=== PATIENT | female | born 1940 | race Caucasian/White ===

== ENCOUNTER → 2017-10-29 08:22 | Outpatient (POV) | payer MEDICARE, OTHER, SELFPAY | PROVIDERS: Visit Provider Dermatology | DX: Z00.00 Encounter for general adult medical examination without abnormal findings (principal) ==

== ENCOUNTER → 2021-10-21 08:04 | Outpatient (CLI) | payer MEDICARE, OTHER, SELFPAY | PROVIDERS: Visit Provider Nurse Practitioner | DX: Z20.822 Contact with and (suspected) exposure to COVID-19 (principal) | CPT/HCPCS: C9803; U0003; U0005 ==

== ENCOUNTER → 2022-08-19 12:17 | Outpatient (CLI) | payer MEDICARE, OTHER, SELFPAY | PROVIDERS: PCP Family Medicine; Visit Provider Nurse Practitioner Family | DX: R10.84 Generalized abdominal pain (principal) | CPT/HCPCS: 87045; 87177 ==

== ENCOUNTER 2022-08-23 23:34 | Emergency (ER) | payer MEDICARE, OTHER, SELFPAY ==
[2022-08-23 23:35] VITALS: BP 141/89; PULSE 83; RESP 16; TEMP 36.9; O2SAT 94; BMI 20.1
--- NOTE | 2022-08-23 23:51 | CT_ITS ---
PROCEDURE INFORMATION: Exam: CT Abdomen And Pelvis With Contrast Exam date and time: 08/24/2022 12:40 AM Age: 82 years old Clinical indication: Other: Diarrhea TECHNIQUE: Imaging protocol: Computed tomography of the abdomen and pelvis with contrast. Radiation optimization: All CT scans at this facility use at least one of these dose optimization techniques: automated exposure control; mA and/or kV adjustment per patient size (includes targeted exams where dose is matched to clinical indication); or iterative reconstruction. Contrast material: ISOVUE; Contrast volume: 75 ml; Contrast route: IV; COMPARISON: No relevant prior studies available. FINDINGS: Lungs: Linear densities are present at both lung bases either representing subsegmental atelectasis or scarring. Liver: Normal. No mass. Gallbladder and bile ducts: Normal. No calcified stones. No ductal dilation. Pancreas: Normal. No ductal dilation. Spleen: A very small spleen is noted. Adrenal glands: There is mild left adrenal hyperplasia. Kidneys and ureters: There is a 13 mm cortical cyst of the right kidney with several bilateral renal parapelvic cyst present as well. Stomach and bowel: There is fluid-filled right and transverse colon. Appendix: No evidence of appendicitis. The appendix is not identified as a discrete structure however, there is no inflammatory process in the region of the cecum. Intraperitoneal space: Unremarkable. No free air. No significant fluid collection. Vasculature: There is mild calcific atherosclerotic disease. There is no abdominal aortic aneurysm. 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 Lymph nodes: Unremarkable. No enlarged lymph nodes. Urinary bladder: Unremarkable as visualized. Reproductive: The uterus is absent. Bones/joints: Unremarkable. No acute fracture. Soft tissues: Unremarkable. IMPRESSION: 1. Fluid-filled ascending and transverse colon without wall thickening or acute inflammation. Findings are consistent with diarrheal illness. There is no bowel obstruction. 2. 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 3. 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 COMMENTS: Consistent with the [employer]'s Incidental Findings Committee white paper (J Am Gil Radiol 2018): Any incidental renal lesion less than 1 cm or classified as too small to characterize, or any incidental cystic renal lesion characterized as simple-appearing, is likely benign. No follow-up imaging is recommended for these lesions per consensus recommendations based on imaging criteria.
--- NOTE | 2022-08-24 00:03 | HMH.EDNVD ---
Discharge Plan Disposition Patient Disposition: Home, Self-Care Chief Complaint: Nausea/Vomiting/Diarrhea Prescriptions Prescriptions: No Action simvastatin 40 mg tablet 40 mg PO QHS Referrals Follow up/Referrals: Ameya Moreno MD [Primary Care Provider] - See instructions Clinical Impressions Clinical Impression: Gastroenteritis Instructions Patient Instructions: DI for Diarrhea and Traveler's Diarrhea -- Adult Discharge ED Provider: Ramu Min Nausea/Vomiting/Diarrhea HPI General Chief complaint: Nausea/Vomiting/Diarrhea Stated complaint: Diarrhea,weakness Time Seen by Provider: 08/24/22 00:03 Mode of Arrival: Ambulatory Source of Information: Patient, Spouse and Medical Record Limitations: No Limitations Description of Symptoms (Recalled from ER Triage Doc. by RN): pt c/o diarrhea x 1 week with abd cramping. pt denies any nausea vomitting History of Present Illness HPI Narrative: diarrhea w/o fever or blood with crampy abd pain - no vomiting or known exposure complaint: diarrhea Onset (ago): day(s) Description of Diarrhea: water Associated Abdominal Pain: Yes Location of pain: diffuse Severity: moderate Associated symptoms: denies other symptoms Related Data Home Medications Medication Instructions Recorded Confirmed simvastatin 40 mg tablet 40 mg PO QHS 06/29/19 06/29/19 Allergies Allergy/AdvReac Type Severity Reaction Status Date / Time No Known Allergies Allergy Verified 06/29/19 11:09 PFSH PFS Social History Smoking Status: Former smoker alcohol intake: former substance use type: denies use current occupational status: employed Travel in the last 8 weeks: Inside the [facility] ROS Obtained: Yes All systems reviewed & no additional complaints except as documented Physical Exam General General appearance: alert Head Head exam: normocephalic Eye Eye exam: Present PERRL and EOMI; Absent scleral icterus ENT ENT exam: Present mucous membranes moist Neck Neck exam: Present trachea midline Respiratory Respiratory exam: Absent respiratory distress Cardiovascular Cardiovascular exam: Present regular rate Abdominal Exam Abdominal exam: Present soft Extremities Exam Extremities exam: Present full ROM Neurological Exam Neurological exam: Present alert, oriented X3 and CN II-XII intact; Absent motor sensory deficit Psychiatric Psychiatric exam: Present normal affect Skin Skin exam: Present intact Medical Decision Making Medical Records Medical records reviewed: Yes I reviewed the patient's medical records. Jan Inquiry Pt receiving controlled substance: No Vital Signs: 08/23/22 23:35 Temperature 98.4 F Temperature Source Oral Pulse Rate [Right] 83 Respiratory Rate 16 Blood Pressure [Right Arm] 141/89 H Blood Pressure Mean [Right Arm] 106 02 Sat by Pulse Oximetry 94 L Lab Data Lab results reviewed: Yes I reviewed the patient's lab results. Lab Results 08/23/22 00:00: WBC 8.3, RBC 4.40, Hgb 12.9, Hct 41.1, MCV 93.6, MCH 29.5, MCHC 31.5 L, RDW 13.7, Plt Count 609 H, MPV 7.6, Neut % (Auto) 59.2, Lymph % (Auto) 30.9, Ness % (Auto) 7.8, Eos % (Auto) 1.3, Baso % (Auto) 0.8, Neut # (Auto) 4.9, Lymph # (Auto) 2.6, Ness # (Auto) 0.6, Eos # (Auto) 0.1, Baso # (Auto) 0.1, ESR 57 H 08/24/22 00:00: Sodium 137, Potassium 3.1 L, Chloride 96 L, Carbon Dioxide 26, Anion Gap 18.1 H, BUN 13, Creatinine 0.60, Estimated Creat Clear 34, Estimated GFR 96, Est GFR ( Amer) 116, Glucose 96, Calcium 9.8, Total Bilirubin 0.4, AST 28, ALT 13, Alkaline Phosphatase 130 H, C-Reactive Protein 41.8 H, Total Protein 7.8, Albumin 4.2, Globulin 3.6 H, Albumin/Globulin Ratio 1.2, Procalcitonin 0.057 08/24/22 00:00: Lipase 25 08/24/22 01:27: Urine Color Yellow, Urine Appearance Clear, Urine pH 6.0, Ur Specific Ace 1.010, Urine Protein Negative, Urine Glucose (UA) Negative, Urine Ketones Negative, Urine Blood 2+, Urine Nitrate Positive, Urine Bilirubin Neg
[2022-08-24 00:10] LABS: Basophils # 0.1 K/mm3 (0-0.2); Basophils % 0.8 % (0.1-2.0); Eosinophils # 0.1 K/mm3 (0.0-0.4); Eosinophils % 1.3 % (0.1-12.0); Hematocrit 41.1 % (37.0-47.0); Hemoglobin 12.9 g/dL (12.2-16.2); Lymphocytes # 2.6 K/mm3 (0.7-4.5); Lymphocytes % 30.9 % (10-50); Mean Corpuscular HGB Conc 31.5 g/dL (31.8-35.4); Mean Corpuscular Hemoglobin 29.5 pg (27.0-31.2); Mean Corpuscular Volume 93.6 fl (81-99); Mean Platelet Volume 7.6 fl (7.4-10.4); Monocytes # 0.6 K/mm3 (0.1-1.0); Monocytes % 7.8 % (1.7-9.3); Neutrophils # 4.9 K/mm3 (1.8-7.8); Neutrophils % 59.2 % (37.0-80.0); Red Cell Distribution Width 13.7 % (11.5-17.5); White Blood Count 8.3 K/mm3 (4.8-10.8)
[2022-08-24 00:12] LABS: Platelet Count 609 K/mm3 (142-424)
[2022-08-24 00:21] LABS: Alanine Aminotransferase 13 U/L (12-78); Albumin Level 4.2 g/dl (3.5-5.0); Albumin/Globulin Ratio 1.2 (1.1-1.8); Alkaline Phosphatase 130 U/L (38-126); Anion Gap 18.1 mEq/L (5-15); Aspartate Amino Transferase 28 U/L (14-36); Bilirubin,Total 0.4 mg/dl (0.2-1.3); Blood Urea Nitrogen 13 mg/dl (7-17); Calcium 9.8 mg/dl (8.4-10.2); Carbon Dioxide 26 mmol/L (22.0-30.0); Chloride 96 mmol/L (98-107); Creatinine Clearance Estimated 34 mL/min (50-200); Estimated Glomerular Filt Rate 96 ml/min (>60); GFR (African American) 116 ML/MIN (>60); Globulin 3.6 g/dL (1.3-3.2); Glucose 96 mg/dl (74-100); Lipase 25 U/L (23-300); Potassium 3.1 mmoL/L (3.5-5.1); Sodium 137 mmol/L (136-145); Total Protein,Serum 7.8 g/dl (6.3-8.2)
[2022-08-24 00:26] LABS: C-Reactive Protein 41.8 mg/L (0-4)
[2022-08-24 00:35] LABS: Erythrocyte Sedimentation Rate 57 mm/hr (0-30)
[2022-08-24 00:39] LABS: Procalcitonin 0.057 ng/mL (0.0-2.0)
[2022-08-24 01:29] LABS: Microscopic, Urine URINE MICROSCOPIC (MICROSCOPIC)
[2022-08-24 01:30] LABS: Appearance,Urine CLEAR (Clear); Bilirubin,Urine Negative (Negative); Blood, Urine 2+ (Negative); Color,Urine YELLOW (Yellow); Glucose,Urine (UA) Negative (Negative); Ketones,Urine Negative (Negative); Leukocyte Esterase,Urine Negative (Negative); Nitrate,Urine POSITIVE (Negative); Protein,Urine Negative (Negative); Urobilinogen,Urine 0.2 EU/dl (0.2)
[2022-08-24 01:33] LABS: Bacteria,Urine 2+ /lpf
[2022-08-24 02:42] VITALS: BP 142/79; PULSE 81; RESP 16; TEMP 36.9; O2SAT 94
== END 2022-08-24 03:00 | disposition home or self-care (01) ==
PROVIDERS: Emergency Provider Emergency Medicine; PCP Family Medicine
DX: N39.0 Urinary tract infection, site not specified (principal); K52.9 Noninfective gastroenteritis and colitis, unspecified
CPT/HCPCS: 74177; 80053; 81001; 83690; 84145; 85025; 85651; 86140; 87086; 87088; 87186; 96365; 96367; 99284; J0696; Q9967

== ENCOUNTER → 2022-08-24 08:52 | Outpatient (CLI) | payer MEDICARE, OTHER, SELFPAY | PROVIDERS: PCP Family Medicine; Visit Provider Emergency Medicine | DX: R11.2 Nausea with vomiting, unspecified (principal); R19.7 Diarrhea, unspecified ==

== ENCOUNTER 2025-03-06 09:18 | Outpatient (CLI) | payer MEDICARE, OTHER, SELFPAY ==
[2025-03-06 10:01] LABS: Basophils # 0.1 K/mm3 (0-0.2); Eosinophils # 0.2 Kmm3 (0.0-0.4); Eosinophils % 1.6 % (0.1-12.0); Hematocrit 39.8 % (37.0-47.0); Hemoglobin 12.5 g/dL (12.2-16.2); Immature Granulocytes # 0.02 10^3uL; Immature Granulocytes % 0.2 %; Lymphocytes # 3.3 K/mm3 (0.7-4.5); Lymphocytes % 35.7 % (10-50); Mean Corpuscular HGB Conc 31.4 g/dL (31.8-35.4); Mean Corpuscular Hemoglobin 28.3 pg (27.0-31.2); Mean Platelet Volume 10.4 fl (7.4-10.4); Monocytes % 10.6 % (1.7-9.3); Neutrophils # 4.7 K/mm3 (1.8-7.8); Neutrophils % 50.9 % (37.0-80.0); Nucleated Red Blood Cells # 0 10^3/uL; Nucleated Red Blood Cells % 0 %; Platelet Count 548 K/mm3 (142-424); Red Blood Count 4.42 M/mm3 (4.20-5.40); Red Cell Distribution Width 16.6 % (11.5-17.5); Red Cell Distribution Width-SD 55.1 fL; White Blood Count 9.2 K/mm3 (4.8-10.8)
[2025-03-06 10:32] LABS: Erythrocyte Sedimentation Rate 28 mm/hr (0-30)
[2025-03-06 10:57] LABS: Thyroid Stimulating Hormone 0.43 uIU/mL (0.465-4.68)
[2025-03-06 11:16] LABS: Vitamin B12 612 pg/mL (239-931)
== END 2025-03-06 23:59 | disposition home or self-care (01) ==
LOC: LAB 09:22
PROVIDERS: PCP Family Medicine; Visit Provider Family Medicine
DX: R41.89 Other symptoms and signs involving cognitive functions and awareness (principal); R41.3 Other amnesia
CPT/HCPCS: 36415; 82607; 82746; 84443; 85025; 85651

== ENCOUNTER 2025-04-19 11:50 | Outpatient (CLI) | payer MEDICARE, OTHER, SELFPAY ==
--- OUTSIDE RECORDS SUMMARY | 2025-03-03 16:30 | XMS_ITS | Encounter Summary ---
Author Organization [facility] Address [address] [place] [address] Care Team Providers Care Student Career Development Specialist Name Role Phone Ameya Moreno MD Primary Care Provider + Reason for Visit * Reason Comments memory issues Encounter Details Date Type Department Care Team (Late st Contact Info) Description 03/03/2025 4:30 PM EDT Office Visit [facility] [address] [place] [address] Ameya Moreno MD [address] [place] [address] Cognitive impairment (Primary Dx); Memory [...] as of this encounter Progress Notes * Ameya Moreno MD - 03/03/2025 4:30 [...] documented in this encounter Plan of Treatment Scheduled Orders Name Type Priority Associated Diagnoses Orde r Schedule Vitamin B12 Lab Routine Cognitive impairment Memory impairment of gradual onset Expected: 03/08/2025 (Approximate), Expires: 06/03/2026 CBC (No Diff) Lab Routine Cognitive impairment Memory impairment of gradual onset Expected: 03/08/2025 (Approximate), Expires: 06/03/2026 Sedimentation Rate Lab Routine Cognitive impairment Memory impairment of gradual onset Expected: 03/08/2025 (Approximate), Expires: 06/03/2026 TSH Rfx On Abnormal To Free T4 Lab Routine Cognitive impairment Memory impairment of gradual onset Expected: 03/08/2025 (Approximate), Expires: 06/03/2026 Folate Lab Routine Cognitive impairment Memory impairment of gradual onset Expected: 03/08/2025 (Approximate), Expires: 06/03/2026 documented as of this encounter Procedures Procedure Name Priority Date/Time Associated Diagnosis Comments SCANNED COGNITIVE ASSESSMENT 03/03/2025 documented in this encounter Results * COGNITIVE ASSESSMENT SCAN (03/03/2025) Ameya Moreno MD NEUROLOGY ORDERABLES Fin al Result documented in this encounter Visit Diagnoses Diagnosis Cognitive impairment- Primary Unspecified persistent 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
--- OUTSIDE RECORDS SUMMARY | 2025-04-19 11:51 | XMS_ITS | Continuity of Care Document ---
Author Name [facility] Organization [facility] Care Team Providers Care Bellows Filler Name Role Phone [facility] Unavailable Unavailable Immunizations Combined list of available immunizations from the Department of Defense and Veterans Affairs facilities. Immunization Series Date Given Administered By Site Reaction Lot Number CVX Code Drug Oracle E Business Developer Status Comments Source zoster live 2015 FELIX SHIELDS () Not Given zoster live [facility] Social History Combined list of available smoking, tobacco, and other social history from Department of Defense and Veterans Affairs facilities. Social History Type Response Date Comment Sourc e This section is an empty social history section. [facility]
--- OUTSIDE RECORDS SUMMARY | 2025-04-19 11:54 | XMS_ITS | Encounter Summary ---
Author Organization [facility] Address [address] [place] [address] Care Team Providers Care Inspector Machine Cut Glass Name Role Phone Ameya Moreno MD Primary Care Provider + Encounter Details Date Type Department Care Team (Latest Contact Info) Description 03/03/2025 Travel Social History Tobacco Use Types Packs/Day Years [...] on file documented as of this encounter Functional Status documented as of this encounter Plan of Treatment Not on file documented as of this encounter Visit Diagnoses Not on filedocumented in this encounter Care Teams Inspector Machine Cut Glass Relationship Specialty Start Date End Date Ameya Moreno MD [address] [place] [id number] PCP - General Family Medicine 03/01/24 documented as of this encounter
--- OUTSIDE RECORDS SUMMARY | 2025-04-19 11:54 | XMS_ITS | Encounter Summary ---
Author Organization [facility] Address [address] [place] [address] Care Team Providers Care Respiratory Tech Name Role Phone Ameya Moreno MD Primary Care Provider + Encounter Details Date Type Department Care Team (Late st Contact Info) Description 04/06/2025 Results Follow-Up [facility] [address] [place] [address] Ameya Moreno MD [address] [place] [address] Social History Tobacco Use Types Packs/Day Years [...] on file documented as of this encounter Plan of Treatment Scheduled Orders Name Type Priority Associated Diagnoses Orde r Schedule TSH Lab Routine Abnormal TSH Subclinical hypothyroidism Memory impairment of gradual onset Expected: 04/13/2025 (Approximate), Expires: 07/07/2026 T4, free Lab Routine Abnormal TSH Subclinical hypothyroidism Memory impairment of gradual onset Expected: 04/13/2025 (Approximate), Expires: 07/07/2026 documented as of this encounter Visit Diagnoses Diagnosis Abnormal TSH- Primary Subclinical hypothyroidism Other specified acquired hypothyroidism Memory impairment of gradual onset documented in this encounter Care Teams Respiratory Tech Relationship Specialty Start Date End Date Ameya Moreno MD [address] [place] [address] PCP - General Family Medicine 03/01/24 documented as of this encounter
--- OUTSIDE RECORDS SUMMARY | 2025-04-19 11:54 | XMS_ITS | Clinical Summary ---
Author Organization [facility] Address [address] [place] [id number] Care Team Providers Care Blade Filer Name Role Phone Ameya Moreno MD Primary Care Provider + Allergies No known active allergies Medications melatonin 5 MG tablet tablet Take 1 tablet by mouth. Active aspirin 81 MG EC tablet Take 1 tablet by mouth Daily. Active Encounters Date Type Department Care Team Description 04/06/2025 Results Follow-Up [facility] [address] [place] [id number] Ameya Moreno MD 03/03/2025 4:30 PM EDT Office Visit [facility] [address] [place] [phone] Ameya Moreno MD Cognitive impairment (Primary Dx); Memory impairment of gradual onset 03/03/2025 Travel from Last 3 Months Immunizations Immunization Administration Dates Next Due ABRYSVO (RSV, 60+ or women 32-36 wks) 1 FLUAD TRI 65YR+ 07/08/2024 Fluzone High-Dose 65+YRS 08/18/2016 Fluzone High-Dose 65+yrs 07/08/2023,07/15/2022 Zostavax 12/13/2015 Social History Tobacco Use Types Packs/Day Years Used Date Smoking Tobacco: Some Days Cigarettes Passive Smoke Exposure: Current Smokeless Tobacco: Never Tobacco Cessation:Ready to Q uit: Not Asked; Counseling Given: Not Answered Alcohol Use Standard Drinks/Week Comments Yes 0 (1 standard drink = 0.6 oz pur e alcohol) occasional PHQ-2 Answer Date Recorded Patient Health Questionnaire-2 Score 0 03/03/2025 Comments Unknown Sex and Gender Information Value Date Recorded Sex Assigned at Not on file Legal Sex Female 1:12 PM EDT Gender Identity Not on file Sexual Orientation Not on file Last Filed Vital Signs Vital Sign Reading Time Taken Comments Blood Pressure 110/72 03/03/2025 4:03 PM EDT Pulse 74 03/01/2024 10:50 AM EDT Temperature 36.4 C (97.5 F) 03/03/2025 4:03 PM EDT Respiratory Rate 24 03/03/2025 4:03 PM EDT Oxygen Saturation 95% 03/01/2024 10: 50 AM EDT Inhaled Oxygen Concentration - - Weight 48.4 kg (106 lb 12.8 oz) 03/03/2025 4:03 PM EDT Height 157.5 cm (5' 2 ) 03/03/2025 4:03 PM EDT Body Mass Index 19.53 03/03/2025 4:03 PM EDT Plan of Treatment Health Maintenance Due Date Last Done Comments DXA SCAN 1940 Pneumococcal Vaccine 50+ (1 of 2 - PCV) 1959 TDAP/TD VACCINES (1 - Tdap) 1959 ZOSTER VACCINE (2 of 3) 02/07/2016 12/13/2015 ANNUAL WELLNESS VISIT 01/28/2022 COVID-19 Vaccine (8 2023-2 5 season) 2024 06/03/2024, 07/08/2023, 06/25/2022, Additional history exists INFLUENZA VACCINE 06/28/2025 07/08/2024, , 07/15/2022, Additional history exists RSV Vaccine - Adults Completed 07/15/2023 Procedures Procedure Name Priority Date/Time Associated Diagnosis Comments SCANNED - LABS 03/06/2025 SCANNED COGNITIVE ASSESSMENT 03/03/2025 from Last 3 Months Results * LABS SCANNED (03/06/2025) Ameya Moreno MD LAB BLOOD ORDERABLES Fin al Result * COGNITIVE ASSESSMENT SCAN (03/03/2025) Ameya Moreno MD NEUROLOGY ORDERABLES Fin al Result from Last 3 Months Insurance [facility] Medicare [employer] PPO Care Teams Blade Filer Relationship Specialty Start Date End Date Ameya Moreno MD [address] [place] [id number] PCP - General Family Medicine 03/01/24
--- OUTSIDE RECORDS SUMMARY | 2025-04-19 11:54 | XMS_ITS | Data Portability ---
Author Organization [place] - [facility] Address [address] [place] [id number] Care Team Providers Care Floor Covering Installer Name Role Phone COLLEEN GREENFIELD Primary Care Provider Assessment No assessment recorded. Plan of Treatment Reminders Order Date Submit Date Provider Last Modified By Organization Details Last Modified Time Details Appointments None record ed. Lab None record ed. Referral None record ed. Procedures None record ed. Surgeries None record ed. Imaging XR, abdome n 2021 022 [email or web address] [facility] (Registration ), [address] [place], [address], 17:11:51 Medication Orders None record ed. Patient TargetsNo targets recorded. Patient InstructionsNo instructions recorded. Reason for Referral None Reported. Results Created Date Observation Date Name Description Value Unit Range Abnormal Flag Note LastModifiedBy Organization Detail LastModifiedTime 09/11/20 22 09/11/2022 [facility] [address] [place] [address] Phone: Fax: Name: CHARY BECKMAN Exam Date: 2021 : 1939 Age 82 Gender : F Access ion: [id number] Physic toby: ERMA KEMP [place]ili [place]: [place] [place] HSV: Outpat ient Exam: ABD KUB 1V Abdome n Histor y: Abdomi nal disten tion Findin gs: Single supine view. There is no bowel dilata tion. There is no signif icant amount of stool. There are no abnorm al calcif icatio ns. Impres hawa: No acute proces s. Dictat ed By: SHAMAR HOFFMAN Transc ribed By: SHAMAR HOFFMAN Transc ribed On: 2021 12:58 PM Electr onical ly signed by: SHAMAR HOFFMAN 2021 Thank you for referr ing OLVIN VIZCARRANEOHA to [facility] Legall y authen ticate d by BRANDO IBANEZ 2021-09 12:58: 27 CC'ed Logic: Orderi ng Provid er: RUBÉN RITCHIE Attend ing Provid er: RUBÉN RITCHIE Referr ing Provid er: RUBÉN RITCHIE Admitt ing Provid er: RUBÉN RITCHIE [email or web address] l [facility] [address] [place] [address], [facility], 09/25/2022 17:11:16 Result Notes Documentation Provider Name and Address Organization Details Recorded Time Xr, Abdomen, 1 View : [place] [address] Name: CHARY THEODORE Exam Date: 09/11/2022 : 1940 Age 82 Gender: F Physician: ERMA MCCORMICK Facility: [facility] Facility HSV: Outpatient Exam: ABD KUB 1V Abdomen History: Abdominal distention Findings: Single supine view. There is no bowel dilatation. There is no significant amount of stool. There are no abnormal calcifications. Impression: No acute process. Dictated By: SHAMAR MONTOYA Transcribed By: SHAMAR MONTOYA Transcribed On: 09/11/2022 12:58 PM Electronically signed by: SHAMAR MONTOYA 09/11/2022 Thank you for referring EWELINANEOHA to [facility]. Legally authenticated by LINDSAY IBANEZ 2022-09-11 12:58:27 CC'ed Logic: Ordering Provider: JACE RITCHIE Attending Provider: JACE RITCHIE Referring Provider: JACE RITCHIE Admitting Provider: JACE Garcia [facility] & [place] 09/25/2022 17:11:16 Medical Equipment None Reported. Allergies No known drug allergies Medications Name Sig Start Date Stop Date Status Note LastModified by Organization Details LastModified Time amoxicillin 500 mg capsule 09/11 completed Not Available Not Available Not Available azithromycin 250 mg tablet 09/11 completed Not Available Not Available Not Available sumatriptan 50 mg tablet active Not Available Not Available Not Available levofloxacin 250 mg tablet active Not Available Not Availabl e Not Available prednisone 2.5 mg tablet TAKE ONE TABLET BY MOUTH EVERY DAY active Not Available Not Available No t Available ibuprofen 600 mg tablet active Not Available Not Available No t Available methylprednis olone 4 mg tablets in a dose pack active Not Available Not Available No t Available [facility] 10 billion cell-200 mg sprinkle capsule active Not Available Not Available Not Available Vitals Date Recorded Body weight Body mass index (BMI) Body height Heart rate Systolic And Diastolic Provider Name and Address Organization Details Last Updated DateTime 09/11/2022 84962.16 g 20.1 kg/m2 157.48 cm 81 /min 121/77 mm[Hg] Martita Garcia HUA [facility] & [place] 09/11/2022 10:01:30 Social History None recorded. Functional Status None recorded. Mental Status None recorded. Family History Nothing Reported. Medical History No medical history recorded. Gynecological HistoryNo gynecological history recorded. Obstetrics History GPAL:G 0 P 0 0 0 0 Immunizations Vaccine Type Date Status Note Provider Nam e and Address Organization Details Recorded Time COVID-19, mRNA, LNP-S, PF, 100 mcg/0.5mL dose or 50 mcg/0.25mL dose 10/31/2020 completed Martita gabriel [facility] & [place] 09/11/2022 11:36:59 COVID-19, mRNA, LNP-S, PF, 100 mcg/0.5mL dose or 50 mcg/0.25mL dose 01/16/2022 completed Martita Garcia null, [place] - [facility] - [place] & [place] 09/11/2022 11:36:59 COVID-19, mRNA, LNP-S, bivalent, PF, 50 mcg/0.5 mL or 25mcg/0.25 mL dose 06/25/2022 completed Martita Garcia null, [place] - [facility] - [place] & [place] 09/11/2022 11:36:59 COVID-19, mRNA, LNP-S, PF, 100 mcg/0.5mL dose or 50 mcg/0.25mL dose 05/29/2021 completed Martita Garcia null, [place] - [facility] - [place] & [place] 09/11/2022 11:36:59 COVID-19, mRNA, LNP-S, PF, 100 mcg/0.5mL dose or 50 mcg/0.25mL dose 11/28/2020 completed Martita Garcia null, [facility] - [facility] - [place] & [place] 09/11/2022 11:36:59 Influenza, high-dose, trivalent, PF 08/18/2016 completed Martita Garcia null, [place] - [facility] - [place] & [place] 09/11/2022 11:36:59 Influenza, high-dose, quadrivalent, PF 07/15/2022 completed Martita Garcia null, [place] - [facility] - [place] & [place] 09/11/2022 11:36:59 zoster live 12/13/2015 completed Martita Garcia null, [place] - [facility] - [place] & [place] 09/11/2022 11:36:59 Past Encounters Encounter ID Performer Location Encounter Start Date Encounter Closed Date Diagnosis/Indication Diagnosis SNOMED-CT Code Diagnosis ICD10 Code Diagnosis Note [id number] Erma Mccormick NP [facility] [address] [phone] 09/11/2022 09:52:36 09/11/2022 10:18:20 Abdominal bloating 912107555 R14.0 - KUB ordered- suspect fecal overload- discussed taking Miralax once daily- will discuss further pending xray results Health Concerns Section Related Observation LastModified by Organization Detai ls LastModified Time None Recorded Concern Status LastModified by Organization Details LastModified Time None Recorded Advance Directives Directive None Recorded Payers Insurance Date Sequence Insurance Name Policy Number Policy [place] Covered Member ID [place] Member ID Guarantor Name 09/17/2022 1 [facility] (MEDICARE REPLACEMENT/A DVANTAGE - PPO) [id number] Chary Theodore [id number] Chary Theodore Notes Date Note Type Note Provider Name and Address Organization Details Recorded Time 09/11/2022 text/html Patient is an 82 year old female here today for fecal urgency, occasional abdominal bloating and intermittent watery stool. Denies known history of constipation; however, feels like she does have to use the restroom more often than usual. Denies diarrhea. Denies nausea, vomiting or hematemesis denies abdominal pain or dysphagia. Erma Mccormick, SARA [address] [facility], [place], [address], [facility] - [place] - [place] & [place] 09/11/2022 10:57:31 OBGyn Episode No OBEpisode recorded.
[2025-04-19 13:28] LABS: Free T4 (Free Thyroxine) 0.92 ng/dl (0.78-2.19)
[2025-04-19 13:42] LABS: Thyroid Stimulating Hormone 0.53 uIU/mL (0.465-4.68)
== END 2025-04-19 23:59 | disposition home or self-care (01) ==
LOC: LAB 11:51
PROVIDERS: PCP Family Medicine; Visit Provider Family Medicine
DX: R79.89 Other specified abnormal findings of blood chemistry (principal); E03.8 Other specified hypothyroidism; R41.3 Other amnesia
CPT/HCPCS: 36415; 84439; 84443

== ENCOUNTER 2025-04-20 13:48 | Emergency (ER) | payer MEDICARE, OTHER, SELFPAY ==
--- OUTSIDE RECORDS SUMMARY | 2025-03-03 16:30 | XMS_ITS | Encounter Summary ---
Author Organization [facility] Address [address] [place] [address] Care Team Providers Care Registered Nurses Name Role Phone Ameya Moreno MD Primary Care Provider + Reason for Visit * Reason Comments memory issues Encounter Details Date Type Department Care Team (Late st Contact Info) Description 03/03/2025 4:30 PM EDT Office Visit [facility] [address] [place] [address] Ameya Moreno MD [address] [place] [address] Cognitive impairment (Primary Dx); Memory [...] onset documented in this encounter Care Teams Registered Nurses Relationship Specialty Start Date End Date Ameya Moreno MD [address] [place] [id number] PCP - General Family Medicine 03/01/24 documented as of this encounter
[2025-04-20 13:48] VITALS: BP 105/78; PULSE 118; RESP 18; TEMP 36.6; O2SAT 96; BMI 29.2
[2025-04-20 13:52] VITALS: BP 105/78; PULSE 75; O2SAT 97
--- NOTE | 2025-04-20 13:52 | ECG_ITS ---
APPROVED REPORT Exam: Resting ECG HR:125 bpm ECG Measurements Heart Rate 125 AXES QRSd 86 QRS 79 QT 308 T 60 QTc 382 Conclusion ATRIAL FIBRILLATION WITH RAPID VENTRICULAR RESPONSE MODERATE ST DEPRESSION [0.05+ mV ST DEPRESSION] ABNORMAL ECG UNCONFIRMED REPORT Electronically signed by : Justin Rey, 04/20/2025 15:49:50
--- NOTE | 2025-04-20 13:53 | HMH.EDGENADL ---
Discharge Plan Disposition Patient Disposition: Home, Self-Care Condition: Good Prescriptions Prescriptions: New metoprolol tartrate 25 mg tablet 12.5 mg PO BID Qty: 30 0RF Xarelto 20 mg tablet 20 mg PO HS Qty: 30 0RF Rx Instructions: take with a meal every evening Referrals Follow up/Referrals: Duong Flores MD [Staff Physician, Cardiology] - See instructions Ameya Moreno MD [Primary Care Provider, Medical] - See instructions Activity Restrictions/Add. Instructions Additional Instructions/Restrictions: Follow-up with cardiology regarding your new onset atrial fibrillation. Continue to take your blood thinner and metoprolol. Remember, if you fall and strike your head, you must go to the nearest emergency department, even if you feel fine. Return to the emergency department if you develop chest pain shortness of breath or worsening of your symptoms. If you begin to feel palpitations again that are bothersome and your HR is greater than 120, you may try taking a one-time additional dose of your metoprolol, if that does not resolve your symptoms, proceed to the emergency department. Please follow up with your primary care provider in 2-3 days. Please return to ED if your symptoms worsen, change in location, change in severity, new symptoms develop or if you become concerned for your health. Clinical Impressions Clinical Impression: Atrial fibrillation with RVR, Heart palpitations Print Language Print Language: Irish Discharge ED Provider: Justin Rey Adult HPI General Chief complaint: Chest Pain Stated complaint: Chest Pain Time Seen by Provider: 04/20/25 13:53 History of Present Illness HPI narrative: Patient is an 84-year-old female with no significant past medical history who presents today due to concerns for palpitations and chest pressure. She reports that she was doing yard work and gardening this morning to lay down. As she laid down, she noticed fluttering of her chest and chest pressure. Denies any shortness of breath. She denies any worsening with exertion. She denies feeling lightheaded or dizzy. She denies any numbness weakness tingling fevers. She has been eating and drinking normally. She denies a history of this ever happening before. Related Data Previous Rx's ?Medication ?Instructions ?Recorded metoprolol tartrate 25 mg tablet 12.5 mg (1/2 x 25 mg) PO BID #30 04/20/25 tabs rivaroxaban 20 mg tablet (Xarelto) 20 mg PO HS #30 tabs 04/20/25 Allergies Allergy/AdvReac Type Severity Reaction Status Date / Time No Known Allergies Allergy Verified 06/29/19 11:09 [facility] Disclaimer: The information contained in this section may have been updated after the patient was seen, as this information can be updated by other users. Social History Smoking Status: Former smoker tobacco type: cigarettes alcohol intake: former substance use type: denies use current occupational status: employed Travel in the last 8 weeks?: Inside the [place] Have you lived/traveled outside US in past 30 days?: No Contact w/someone who lives/traveled outside US past 30 days?: No Exposure to someone with infectious disease in past 14 days?: No Do you have a fever (greater than 100.4 F or 38 C)?: No Have you tested positive for COVID-19?: No Exposed to someone with COVID-19 in past 14 days?: No Do you have a sore throat?: No Do you have a cough?: No Do you have any weakness?: No Do you have any diarrhea?: No Are you experiencing any unusual bleeding?: No Do you have any muscle aches/pain?: No Do you have any abdominal pain?: No Are you experiencing loss of taste or smell?: No Other Medical History Have you received the Pneumonia Vaccine: Yes ROS Obtained: Yes All systems reviewed & no additional complaints except as documented Physical Exam General General appearance: alert and in no apparent distress Head Head exam: atraumatic and normocephalic Eye Eye exam: Present PERRL and EOMI ENT ENT exam: Present normal oropharynx Neck Neck exam: Present full ROM and trachea midline Chest Chest inspection: Present symmetric chest wall rise Respiratory Respiratory exam: Present normal lung sounds bilaterally; Absent stridor Cardiovascular Cardiovascular exam: Present tachycardia and irregular rhythm Abdominal Exam Abdominal exam: Present soft; Absent distention or tenderness Extremities Exam Extremities exam: Present full ROM; Absent edema Neurological Exam Neurological exam: Present alert and oriented X3 Psychiatric Psychiatric exam: Present normal mood Skin Skin exam: Present warm and dry Medical Decision Making Medical Records Screening: Per USPSTF and CDC recommendations, given the prevalence of disease in our region, it is our hospital?s policy to screen for HIV and viral Hepatitis for all patients aged 18 and over and those with ongoing risk factors. Jan Inquiry Pt receiving controlled substance: No Vital Signs: 04/20/25 13:48 04/20/25 13:52 04/20/25 15:00 Temperature 97.9 F Temperature Source Oral Pulse Rate 75 86 Pulse Rate [Apical] 118 H Respiratory Rate 18 14 Blood Pressure 105/78 L 112/60 Blood Pressure [Right Arm] 105/78 L Blood Pressure Mean [Right Arm] 87 Blood Pressure Source [Right Arm] Automatic Cuff Blood Pressure Position [Right Arm] Sitting 02 Sat by Pulse Oximetry 96 97 97 Oxygen Delivery Method Room Air Lab Data Lab Results 04/20/25 14:00: WBC 8.7, RBC 4.32, Hgb 13.0, Hct 38.1, MCV 88.2, MCH 30.1, MCHC 34.1, RDW 16.6, Plt Count 467 H, MPV 9.9, Neut % (Auto) 42.8, Lymph % (Auto) 46.1, [place] % (Auto) 8.6, Eos % (Auto) 1.4, Baso % (Auto) 1.0, Neut # (Auto) 3.7, Lymph # (Auto) 4.0, [place] # (Auto) 0.8, Eos # (Auto) 0.1, Baso # (Auto) 0.1, Sodium 135 L, Potassium 4.1, Chloride 106, Carbon Dioxide 24, Anion Gap 9.1, BUN 12, Creatinine 0.60, Estimated Creat Clear 48, Estimated GFR 95, Est GFR ( Amer) 115, Glucose 97, Calcium 9.7, Magnesium 2.0, Total Bilirubin 0.5, AST 22, ALT 10 L, Alkaline Phosphatase 93, Troponin I < 0.01, NT-Pro-B Natriuret Pep 172, Total Protein 7.5, Albumin 4.2, Globulin 3.3 H, Albumin/Globulin Ratio 1.3, TSH 0.68 D, Free T4 0.98 04/20/25 14:00 04/20/25 14:00 Orders (Tests/Meds): ED MEDICATIONS Generic Name Dose Route Start Last Admin Trade Name Freq PRN Reason Stop Dose Admin Sodium Chloride 10 ml 04/20/25 14:46 04/20/25 14:47 Sodium Chloride 0.9% 10ml Syr (Rad Only) IV 05/20/25 14:45 10 ml NEEDED PRN Administration Maintain IV Site Discontinued Medications Generic Name Dose Route Start Last Admin Trade Name Trisha PRN Reason Stop Dose Admin Magnesium Sulfate 2 gm in 50 mls @ 50 mls/hr 04/20/25 14:15 04/20/25 14:19 Magnesium Sulfate 2gm/50ml Premix IV 04/20/25 15:14 50 mls/hr ONCE ONE Administration Iopamidol 80 ml 04/20/25 14:46 04/20/25 14:47 Iopamidol-370 (76%);100ml Bottle IV 04/20/25 14:47 80 ml ONCE ONE Administration Metoprolol Tartrate 5 mg 04/20/25 14:15 04/20/25 14:19 Metoprolol Tartrate 5mg/5ml Vial IV 04/20/25 14:16 5 mg ONCE ONE Administration Metoprolol Tartrate 12.5 mg 04/20/25 14:37 04/20/25 14:46 Metoprolol Tartrate 50mg Tablet PO 04/20/25 14:38 Not Given ONCE ONE Metoprolol Tartrate 12.5 mg 04/20/25 15:00 04/20/25 14:56 Metoprolol Tartrate 25mg Tablet PO 04/20/25 15:01 12.5 mg ONCE ONE Administration Rivaroxaban 20 mg 04/20/25 14:52 04/20/25 15:13 Rivaroxaban 10mg Tablet PO 04/20/25 14:53 20 mg ONCE ONE Administration Sodium Chloride 50 ml 04/20/25 14:46 04/20/25 14:47 0.9 % Sodium Chloride 50 Ml Vial IV 04/20/25 14:47 50 ml ONCE ONE Administration ORDERS Category Date Time Status CTA Chest [CT angio chest PE protocol] Stat Cat Scan 04/20/25 14:17 Taken XR chest portable Stat Exams 04/20/25 14:02 Completed BNP [NT Pro Brain Natriuretic Pep.] Stat Lab 04/20/25 14:00 Completed Complete Blood Count Auto Diff Stat Lab 04/20/25 14:00 Completed Comprehensive Metabolic Panel Stat Lab 04/20/25 14:00 Completed Free T4 (Free Thyroxine) Stat Lab 04/20/25 14:00 Completed HIV Combo Stat Lab 04/20/25 14:00 Received Hepatitis C Ab Qual. W/ RFX Stat Lab 04/20/25 14:00 Received MAG [Magnesium] Stat Lab 04/20/25 14:00 Completed TSH [Thyroid Stimulating Hormone] Stat Lab 04/20/25 14:00 Completed Troponin I Q3H Lab 04/20/25 17:15 Ordered Troponin I Q3H Lab 04/20/25 20:15 Ordered Troponin I Stat Lab 04/20/25 14:00 Completed HEART Score History (anamnesis): Slightly suspicious ECG: Non-specific disturbance Age: >65 years Risk factors: No known risk factors Troponin: </= normal limit HEART Score: 3 Medical Decision Narrative: In summary, this 84 female presents to the emergency department today with palpitations chest pain. On initial evaluation patient is afebrile, tachycardic with an irregular rhythm, but otherwise stable. On exam, is warm and well-perfused with full pulses and brisk cap refill. Does have an irregular heartbeat that is tachycardic, no lower extremity edema, well-appearing overall, not significantly symptomatic apart from the palpitations. Differential diagnosis includes but is not limited to atrial fibrillation, ACS, AK, PE, electrolyte derangement. Based on these concerns, I ordered CBC CMP magnesium TSH free T4, CTA chest. ECG personally interpreted demonstrates A-fib RVR, after intervention, new EKG demonstrates A-fib, rate controlled at a rate of 90, no acute ischemic ST change. Patient received metoprolol 5 mg IV, metoprolol 12.5 orally, Xarelto, 2 g of magnesium for treatment. Labs personally reviewed demonstrate undetectably low troponin, no significant lecture light derangement, no evidence of anemia no leukocytosis. CT imaging personally interpreted demonstrate no evidence of pulmonary embolism. Radiology read remarks upon a small granuloma, made patient aware of this and she will followed up with her PCP.. On reassessment patient is remained rate controlled during observation in the emergency department. She is resting comfortably in no acute distress. I offered cardioversion to her, however after shared decision making she politely declined and will follow-up with her industrial training specialist in short order. Will send home with Xarelto and metoprolol. Strict precautions were discussed all questions are amenable plan and discharge. At this time it was felt that the patient was safe to be discharged home. The patient was in agreement with this plan. The patient was given strict return precautions prior to being discharged from the emergency department. Critical Care Critical Care Time Critical Care Time: No
--- OUTSIDE RECORDS SUMMARY | 2025-04-20 13:59 | XMS_ITS | Continuity of Care Document ---
Author Name [facility] Organization [facility] Care Team Providers Care Service Director Name Role Phone [facility] Unavailable Unavailable Immunizations Combined list of available immunizations from the Department of Defense and Veterans Affairs facilities. Immunization Series Date Given Administered By Site Reaction Lot Number CVX Code Drug Balloon Maker Status Comments Source zoster live 2015 FELIX SHIELDS () Not Given zoster live DoD Social History Combined list of available smoking, tobacco, and other social history from Department of Defense and Veterans Affairs facilities. Social History Type Response Date Comment Sourc e This section is an empty social history section. DoD
--- NOTE | 2025-04-20 14:02 | XR_ITS ---
FINAL REPORT CLINICAL HISTORY: Nonspecific chest pain COMPARISON: None FINDINGS: A single frontal view of the chest was obtained. Linear densities in the bilateral lung bases are likely scarring. Emphysematous change is noted. There is no evidence of effusion or pneumothorax. Mediastinum is unremarkable. Heart size is normal. IMPRESSION: No evidence of pneumonia or edema. Chronic changes. Reviewed, Interpreted and Dictated by Anu Rose MD Transcribed by Cristin Rodríguez Authenticated and [facility]
--- NOTE | 2025-04-20 14:04 | PC.NURSE ---
DR NICOLE AT BEDSIDE
--- OUTSIDE RECORDS SUMMARY | 2025-04-20 14:07 | XMS_ITS | Encounter Summary ---
Author Organization [facility] Address [address] [place] [address] Care Team Providers Care Business Analysis Consultant Name Role Phone Ameya Moreno MD Primary [...] on filedocumented in this encounter Care Teams Business Analysis Consultant Relationship Specialty Start Date End Date Ameya Moreno MD [address] [place] [id number] PCP - General Family Medicine 03/01/24 documented as of this encounter
[2025-04-20 14:08] LABS: Hematocrit 38.1 % (37.0-47.0); Hemoglobin 13.0 g/dL (12.2-16.2); Immature Granulocytes % 0.1 %; Mean Corpuscular HGB Conc 34.1 g/dL (31.8-35.4); Mean Corpuscular Hemoglobin 30.1 pg (27.0-31.2); Mean Corpuscular Volume 88.2 fl (81-99); Nucleated Red Blood Cells % 0 %; Platelet Count 467 K/mm3 (142-424); Red Blood Count 4.32 M/mm3 (4.20-5.40); Red Cell Distribution Width-SD 53.6 fL; White Blood Count 8.7 K/mm3 (4.8-10.8)
--- OUTSIDE RECORDS SUMMARY | 2025-04-20 14:08 | XMS_ITS | Data Portability ---
Author Organization [place] - [facility] ADMIN Address [address] [place] [id number] Care Team Providers Care Director Pharmacovigilance Name Role Phone COLLEEN GREENFIELD Primary Care Provider Assessment No assessment recorded. Plan of Treatment Reminders Order Date Submit Date Provider Last Modified By Organization Details Last Modified Time Details Appointments None record ed. Lab None record ed. Referral None record ed. Procedures None record ed. Surgeries None record ed. Imaging XR, abdome n 2021 022 [email or web address] [facility] (Registration ), [address] [place], [address], 17:11:51 Medication Orders None record ed. Patient TargetsNo targets recorded. Patient InstructionsNo instructions recorded. Reason for Referral None Reported. Results Created Date Observation Date Name Description Value Unit Range Abnormal Flag Note LastModifiedBy Organization Detail LastModifiedTime 09/11/20 22 09/11/2022 [facility]R, [facility] [address] [place] [address] Phone: Fax: Name: CHARY BECKMAN Exam Date: 2021 : 1939 Age 82 Gender : F Access ion: [id number] Physic toby: ERMA KEMP Facili [...] you for referr ing OLVIN VIZCARRANEOHA to [facility]. Legall y authen ticate d by BRANDO IBANEZ 2021-09 12:58: 27 CC'ed Logic: Orderi ng Provid er: RUBÉN RITCHIE Attend ing Provid er: RUBÉN RITCHIE Referr ing Provid er: RUBÉN RITCHIE Admitt ing Provid er: RUBÉN RITCHIE [email or web address] l [facility] - Physical Therapy [address] [place] [address], [facility], 09/25/2022 17:11:16 Result Notes Documentation Provider Name and Address Organization Details Recorded Time Xr, Abdomen, 1 View : [place] [address] Name: CHARY THEODORE Exam Date: 09/11/2022 : 1940 Age 82 Gender: F Physician: ERMA MCCORMICK Facility: [facility] Facility HSV: Outpatient Exam: ABD KUB 1V Abdomen History: Abdominal distention Findings: Single supine view. There is no bowel dilatation. There is no significant amount of stool. There are no abnormal calcifications. Impression: No acute process. Dictated By: SHAMAR MONTOYA Transcribed By: SHAMAR MONTOYA Transcribed On: 09/11/2022 12:58 PM Electronically signed by: SHAMAR MONTOYA 09/11/2022 Thank you for referring EWELINANEOHA to [facility]. Legally authenticated by LINDSAY IBANEZ 2022-09-11 12:58:27 CC'ed Logic: Ordering Provider: JACE RITCHIE Attending Provider: JACE RITCHIE Referring Provider: JACE RITCHIE Admitting Provider: JACE Garcia [facility] & [place] 09/25/2022 17:11:16 Medical Equipment None Reported. Allergies [...] Not Available Not Available No t Available [facility] 10 billion cell-200 mg sprinkle capsule active Not Available Not Available Not Available Vitals Date Recorded Body weight Body mass index (BMI) Body height Heart rate Systolic And Diastolic Provider Name and Address Organization Details Last Updated DateTime 09/11/2022 68703.16 g 20.1 kg/m2 157.48 cm 81 /min 121/77 mm[Hg] Martita Garcia [facility] & [place] 09/11/2022 10:01:30 Social History None recorded. Functional [...] 50 mcg/0.25mL dose 10/31/2020 completed Martita gabriel [facility] & [place] 09/11/2022 11:36:59 COVID-19, mRNA, LNP-S, PF, 100 mcg/0.5mL dose or 50 mcg/0.25mL dose 01/16/2022 completed Martita Garcia null, [place] - [facility] [place] & [place] 09/11/2022 11:36:59 COVID-19, mRNA, LNP-S, bivalent, PF, 50 mcg/0.5 mL or 25mcg/0.25 mL dose 06/25/2022 completed Martita Garcia null, [place] - [facility] [place] & [place] 09/11/2022 11:36:59 COVID-19, mRNA, LNP-S, PF, 100 mcg/0.5mL dose or 50 mcg/0.25mL dose 05/29/2021 completed Martita Garcia null, [place] - [facility] [place] & [place] 09/11/2022 11:36:59 COVID-19, mRNA, LNP-S, PF, 100 mcg/0.5mL dose or 50 mcg/0.25mL dose 11/28/2020 completed Martita Garcia null, [facility] - [facility] [place] & [place] 09/11/2022 11:36:59 Influenza, high-dose, trivalent, PF 08/18/2016 completed Martita Garcia null, [place] - [facility] [place] & [place] 09/11/2022 11:36:59 Influenza, high-dose, quadrivalent, PF 07/15/2022 completed Martita Garcia null, [place] - [facility] [place] & [place] 09/11/2022 11:36:59 zoster live 12/13/2015 completed Martita Garcia null, [place] [facility] [place] & [place] 09/11/2022 11:36:59 Past Encounters Encounter ID Performer Location Encounter Start Date Encounter Closed Date Diagnosis/Indication Diagnosis SNOMED-CT Code Diagnosis ICD10 Code Diagnosis Note [id number] Erma Mccormick NP [facility] [address] [phone] 09/11/2022 09:52:36 09/11/2022 10:18:20 Abdominal bloating [id number] R14.0 - KUB ordered- suspect fecal overload- [...] [place] Member ID Guarantor Name 09/17/2022 1 [facility] [employer] (MEDICARE REPLACEMENT/A DVANTAGE - PPO) [id number] Chary Theodore [id number] Chary Theodore Notes Date Note Type Note Provider Name and Address Organization Details Recorded Time 09/11/2022 text/html ROS as noted in the HPI Patient is an 82 year old female here today for fecal urgency, occasional abdominal bloating and intermittent watery stool. Denies known history of constipation; however, feels like she does have to use the restroom more often than usual. Denies diarrhea. Denies nausea, vomiting or hematemesis denies abdominal pain or dysphagia. Erma Mccormick, [employer] [address] [facility], [place], [address], [place] - [facility] [place] & [place] 09/11/2022 10:57:31 OBGyn Episode No OBEpisode recorded.
--- OUTSIDE RECORDS SUMMARY | 2025-04-20 14:08 | XMS_ITS | Encounter Summary ---
Author Organization [facility] Address [address] [place] [address] Care Team Providers Care Manager Product Management Name Role Phone Ameya Moreno MD Primary Care Provider + Encounter Details Date Type Department Care Team (Late st Contact Info) Description 04/06/2025 Results Follow-Up [facility]ICINE [address] [place] [address] Ameya Moreno MD [address] [place] [address] Social History Tobacco Use Types [...] onset documented in this encounter Care Teams Manager Product Management Relationship Specialty Start Date End Date Ameya Moreno MD [address] [place] [address] PCP - General Family Medicine 03/01/24 documented as of this encounter
--- OUTSIDE RECORDS SUMMARY | 2025-04-20 14:08 | XMS_ITS | Clinical Summary ---
Author Organization [facility] Address [address] [place] [id number] Care Team Providers Care Dry Cure Worker Name Role Phone Ameya Moreno MD Primary Care Provider + Allergies No known active allergies Medications melatonin 5 MG tablet tablet Take 1 tablet by mouth. Active aspirin 81 MG EC tablet Take 1 tablet by mouth Daily. Active Encounters Date Type Department Care Team Description 04/06/2025 Results Follow-Up [facility] [address] [place] [address] Ameya Moreno MD 03/03/2025 4:30 PM EDT Office Visit [facility] [address] [place] [address] Ameya Moreno MD Cognitive impairment (Primary [...] al Result from Last [address] [facility] Medicare [employer] PPO Care Teams Dry Cure Worker Relationship Specialty Start Date End Date Ameya Moreno MD [address] [place] [address] PCP - General Family Medicine 03/01/24
--- NOTE | 2025-04-20 14:16 | PC.NURSE ---
XR AT BEDSIDE
--- NOTE | 2025-04-20 14:17 | CT_ITS ---
FINAL REPORT TECHNIQUE: Thin section axial CT with contrast with multiplanar reconstruction This study was performed with techniques to keep radiation doses as low as reasonably achievable, (ALARA). Individualized dose reduction techniques using automated exposure control or adjustment of mA and/or kV according to the patient''s size were employed. CLINICAL HISTORY: cp, tachy COMPARISON: None FINDINGS: Pulmonary vessels are enlarged centrally suggesting pulmonary artery hypertension. There is no evidence of pulmonary embolism. Thoracic aorta shows no dissection or aneurysm. There is mild dependent atelectasis in the lower lobes. Advanced emphysematous disease is noted. There is an oval nodule in the right upper lobe measuring 8 mm on image 51 of series 5. There is no significant pleural effusion. There is no significant pericardial effusion. No mediastinal or hilar adenopathy is present. IMPRESSION: No evidence of pulmonary embolism. Advanced emphysematous disease without evidence of pneumonia. Indeterminate right upper lobe nodule. Recommend three-month chest CT follow-up. Reviewed, Interpreted and Dictated by Anu Rose MD Transcribed by Cristin Rodríguez Authenticated and [facility]
[2025-04-20] MEDS: METOPROLOL TARTRATE 5MG/5ML VIAL 5 MG IV (14:19)
[2025-04-20] MEDS: MAGNESIUM SULFATE IN WATER 2 GM/50 ML PIGGYBACK IV (14:19)
[2025-04-20 14:34] LABS: Magnesium 2.0 mg/dl (1.6-2.3)
[2025-04-20 14:35] LABS: Albumin Level 4.2 g/dl (3.5-5.0); Chloride 106 mmol/L (98-107); Sodium 135 mmol/L (136-145)
[2025-04-20 14:36] LABS: Potassium 4.1 mmoL/L (3.5-5.1)
[2025-04-20 14:38] LABS: Alanine Aminotransferase 10 U/L (12-78); Albumin/Globulin Ratio 1.3 (1.1-1.8); Alkaline Phosphatase 93 U/L (38-126); Anion Gap 9.1 mEq/L (5-15); Aspartate Amino Transferase 22 U/L (14-36); Bilirubin,Total 0.5 mg/dl (0.2-1.3); Blood Urea Nitrogen 12 mg/dl (7-17); Carbon Dioxide 24 mmol/L (22.0-30.0); Creatinine Clearance Estimated 48 mL/min (50-200); Creatinine,Serum 0.60 mg/dl (0.52-1.04); Estimated Glomerular Filt Rate 95 ml/min (>60); GFR (African American) 115 ML/MIN (>60); Globulin 3.3 g/dL (1.3-3.2); Total Protein,Serum 7.5 g/dl (6.3-8.2)
[2025-04-20 14:39] LABS: Calcium 9.7 mg/dl (8.4-10.2); Glucose 97 mg/dl (74-100)
[2025-04-20 14:45] LABS: NT Pro Brain Natriuretic Pep. 172 pg/mL (0-450)
--- NOTE | 2025-04-20 14:46 | PC.NURSE ---
PT TO CT
[2025-04-20] MEDS: SODIUM CHLORIDE 0.9% 10ML SYR (RAD ONLY) 10 ML IV (14:47)
[2025-04-20] MEDS: IOPAMIDOL-370 (76%);100ML BOTTLE 80 ML IV (14:47)
[2025-04-20] MEDS: 0.9 % SODIUM CHLORIDE 50 ML VIAL IV (14:47)
--- NOTE | 2025-04-20 14:51 | PC.NURSE ---
PT RETURNED FROM CT
[2025-04-20 14:52] LABS: Free T4 (Free Thyroxine) 0.98 ng/dl (0.78-2.19)
[2025-04-20] MEDS: METOPROLOL TARTRATE 25MG TABLET 12.5 MG PO (14:56)
[2025-04-20 14:58] LABS: Troponin I < 0.01 ng/ml (0.00-0.034)
[2025-04-20 15:00] VITALS: BP 112/60; PULSE 86; RESP 14; O2SAT 97
[2025-04-20 15:06] LABS: Thyroid Stimulating Hormone 0.68 uIU/mL (0.465-4.68)
--- NOTE | 2025-04-20 15:23 | ECG_ITS ---
APPROVED REPORT Exam: Resting ECG HR:69 bpm ECG Measurements Heart Rate 69 AXES QRSd 91 QRS 65 QT 385 T 54 QTc 405 Conclusion ATRIAL FIBRILLATION ABNORMAL RHYTHM ECG UNCONFIRMED REPORT Electronically signed by : Justin Rey, 04/20/2025 15:49:42
--- NOTE | 2025-04-20 15:24 | PC.NURSE ---
dr mason at bedside to update pt and family
[2025-04-20 15:25] LABS: Hepatitis C Ab Qual. W/ RFX NEGATIVE (Negative)
[2025-04-20 15:30] VITALS: BP 102/74; PULSE 87; RESP 12; O2SAT 97
[2025-04-20 15:53] VITALS: BP 102/74; PULSE 90; RESP 18; TEMP 36.5; O2SAT 97
--- NOTE | 2025-04-20 19:54 | ECG_ITS ---
APPROVED REPORT Exam: Resting ECG HR:63 bpm ECG Measurements Heart Rate 63 AXES LA 197 P 81 QRSd 90 QRS 75 QT 411 T 80 QTc 418 Conclusion SINUS RHYTHM NORMAL ECG UNCONFIRMED REPORT Electronically signed by : AGUS GREY, 04/21/2025 01:00:49
== END 2025-04-20 15:55 | disposition home or self-care (01) ==
PROVIDERS: Emergency Provider Emergency Medicine; PCP Family Medicine
DX: I48.91 Unspecified atrial fibrillation (principal); R07.9 Chest pain, unspecified; R00.2 Palpitations; Z87.891 Personal history of nicotine dependence
CPT/HCPCS: 71045; 71275; 80053; 83735; 83880; 84439; 84443; 84484; 85025; 86803; 87389; 93005; 96365; 96375; 99285; J3475; Q9967

== ENCOUNTER 2025-04-20 18:24 | Emergency (ER) | payer MEDICARE, OTHER, SELFPAY ==
--- OUTSIDE RECORDS SUMMARY | 2025-03-03 16:30 | XMS_ITS | Encounter Summary ---
Author Organization [facility] Address [address] [place] [address] Care Team Providers Care Brake Press Operator Name Role Phone Ameya Moreno MD Primary Care Provider + Reason for Visit * Reason Comments memory issues Encounter Details Date Type Department Care Team (Late st Contact Info) Description 03/03/2025 4:30 PM EDT Office Visit [facility] [address] [place] [address] Ameya Moreno MD [address] [place] [address] Cognitive impairment (Primary Dx); Memory [...] onset documented in this encounter Care Teams Brake Press Operator Relationship Specialty Start Date End Date Ameya Moreno MD [address] [place] [id number] PCP - General Family Medicine 03/01/24 documented as of this encounter
--- OUTSIDE RECORDS SUMMARY | 2025-04-20 13:59 | XMS_ITS | Continuity of Care Document ---
Author Name [facility] Organization [facility] Care Team Providers Care Mds Coordinator Name Role Phone [facility] Unavailable Unavailable Immunizations Combined list of available immunizations from the Department of Defense and Veterans Affairs facilities. Immunization Series Date Given Administered By Site Reaction Lot Number CVX Code Drug Warp Drawer Status Comments Source zoster live 2015 FELIX SHIELDS () Not Given zoster live [facility] Social History Combined list of available smoking, tobacco, and other social history from Department of Defense and Veterans Affairs facilities. Social History Type Response Date Comment Sourc e This section is an empty social history section. [facility]
--- NOTE | 2025-04-20 18:26 | ECG_ITS ---
APPROVED REPORT Exam: Resting ECG HR:83 bpm ECG Measurements Heart Rate 83 AXES [place] 181 P 76 QRSd 89 QRS 71 QT 368 T 76 QTc 407 Conclusion SINUS RHYTHM WITH OCCASIONAL SUPRAVENTRICULAR PREMATURE COMPLEXES BORDERLINE ECG UNCONFIRMED REPORT Electronically signed by : AGUS GREY, 04/21/2025 01:00:30
[2025-04-20 18:30] VITALS: BP 102/52; PULSE 82; RESP 19; O2SAT 94
[2025-04-20 18:33] VITALS: BP 94/52; PULSE 82; RESP 20; TEMP 36.6; O2SAT 97; BMI 19.3
--- OUTSIDE RECORDS SUMMARY | 2025-04-20 18:50 | XMS_ITS | Encounter Summary ---
Author Organization [facility] Address [address] [place] [address] Care Team Providers Care Group Fitness Assistant Department Head Name Role Phone Ameya Moreno MD Primary [...] on filedocumented in this encounter Care Teams Group Fitness Assistant Department Head Relationship Specialty Start Date End Date Ameya Moreno MD [address] [place] [address] PCP - General Family Medicine 03/01/24 documented as of this encounter
--- OUTSIDE RECORDS SUMMARY | 2025-04-20 18:50 | XMS_ITS | Clinical Summary ---
Author Organization [facility] Address [address] [place] [id number] Care Team Providers Care Data Consultant Name Role Phone Ameya Moreno MD Primary Care Provider + Allergies No known active allergies Medications melatonin 5 MG tablet tablet Take 1 tablet by mouth. Active aspirin 81 MG EC tablet Take 1 tablet by mouth Daily. Active Encounters Date Type Department Care Team Description 04/06/2025 Results Follow-Up [facility] MEDICINE [address] [place] [address] Ameya Moreno MD 03/03/2025 4:30 PM EDT Office Visit [facility] [address] [place] [address] Ameya Moreno MD Cognitive impairment (Primary [...] ANNUAL WELLNESS VISIT 01/28/2022 COVID-19 Vaccine (8 - 2023-2 5 season) 2024 06/03/2024, 07/08/2023, 06/25/2022, Additional history exists INFLUENZA VACCINE 06/28/2025 07/08/2024, , 07/15/2022, Additional history exists RSV Vaccine - Adults Completed 07/15/2023 Procedures Procedure Name Priority Date/Time Associated Diagnosis Comments SCANNED - LABS 04/20/2025 SCANNED - LABS 04/20/2025 SCANNED - IMAGING 04/20/2025 SCANNED - IMAGING 04/20/2025 SCANNED - LABS 04/19/2025 SCANNED - LABS 03/06/2025 SCANNED COGNITIVE ASSESSMENT 03/03/2025 from Last 3 Months Results * IMAGING SCANNED (04/20/2025) Only the most recent of2 resultswithin the time period is included. Anatomical Region Laterality Modality Radiographic Stacy ging Ameya Moreno MD IMG DIAGNOSTIC IMAGING O RDERABLES Final Result * LABS SCANNED (04/20/2025) Only the most recent of4 resultswithin the time period is included. Ameya Moreno MD LAB BLOOD ORDERABLES Fin al Result * COGNITIVE ASSESSMENT SCAN (03/03/2025) Ameya Moreno MD NEUROLOGY ORDERABLES Fin al Result from Last 3 Months Insurance [facility] Medicare Ad[employer] PPO Care Teams Data Consultant Relationship Specialty Start Date End Date Ameya Moreno MD [address] [place] [address] PCP - General Family Medicine 03/01/24
--- OUTSIDE RECORDS SUMMARY | 2025-04-20 18:51 | XMS_ITS | Encounter Summary ---
Author Organization [facility] Address [address] [place] [address] Care Team Providers Care Travograph Operator Name Role Phone Ameya Moreno MD Primary Care Provider + Encounter Details Date Type Department Care Team (Late st Contact Info) Description 04/06/2025 Results Follow-Up [facility] [address] [place] [address] Ameya Moreno MD [address] [place] [address] Social History Tobacco Use Types [...] onset documented in this encounter Care Teams Travograph Operator Relationship Specialty Start Date End Date Ameya Moreno MD [address] [place] [address] PCP - General Family Medicine 03/01/24 documented as of this encounter
[2025-04-20] MEDS: LACTATED RINGERS 1000ML 500 ML 999 ML IV (18:58)
[2025-04-20 19:00] VITALS: BP 91/56; PULSE 65; RESP 15; O2SAT 95
[2025-04-20 19:30] VITALS: BP 96/58; PULSE 60; RESP 14; O2SAT 97
--- NOTE | 2025-04-20 19:31 | HMH.EDGENADL ---
Discharge Plan Disposition Patient Disposition: Home, Self-Care Condition: Good Prescriptions Prescriptions: No Action metoprolol tartrate 25 mg tablet 12.5 mg PO BID Qty: 30 0RF Xarelto 20 mg tablet 20 mg PO HS Qty: 30 0RF Rx Instructions: take with a meal every evening Referrals Follow up/Referrals: Provider,Referral, [Primary Care Provider, Medical] - See instructions Activity Restrictions/Add. Instructions Additional Instructions/Restrictions: Please call Dr. Flores in the morning and return to the ER if you have palpitations with a racing heart rate for more than just a few minutes. Clinical Impressions Clinical Impression: Heart palpitations Print Language Print Language: Thai Discharge ED Provider: Ke Law General Adult HPI General Chief complaint: Arrhythmia/Palpitations Stated complaint: weakness Time Seen by Provider: 04/20/25 18:27 Mode of Arrival: Ambulatory Source of Information: Patient and Spouse Description of Symptoms (Recalled from ER Triage Doc. by RN): pt reports feeling heart palpatations heart hurting was outside watering her quinn came back in and felt off. was here earlier for afib with rvr History of Present Illness HPI narrative: This is a previously healthy 84-year-old female patient, on no daily medications at home, who is presenting to the emergency department today for evaluation of palpitations. The patient initially had presented to the emergency department earlier in the day for similar symptoms. At that time she was doing yard work and gardening and following this activity she laid down and noticed fluttering in her chest with chest pressure. In the emergency department she was diagnosed with atrial fibrillation that is new onset. Her cardiac enzymes were unremarkable and she did not have any electrolyte derangements. She was ultimately administered 5 mg of IV metoprolol as well as 12-1/2 mg of oral metoprolol and a dose of Xarelto in the emergency department. She converted to normal sinus rhythm and was discharged home. She states that after returning home she returned to gardening and was watering her quinn and shortly after returning inside she again began experiencing palpitations with chest pressure. This prompted immediate return to the emergency department. Related Data Previous Rx's ?Medication ?Instructions ?Recorded metoprolol tartrate 25 mg tablet 12.5 mg (1/2 x 25 mg) PO BID #30 04/20/25 tabs rivaroxaban 20 mg tablet (Xarelto) 20 mg PO HS #30 tabs 07/24/25 Allergies Allergy/AdvReac Type Severity Reaction Status Date / Time No Known Allergies Allergy Verified 06/29/19 11:09 [facility] Disclaimer: The information contained in this section may have been updated after the patient was seen, as this information can be updated by other users. Social History Smoking Status: Never smoker alcohol intake: former substance use type: denies use current occupational status: employed Travel in the last 8 weeks?: Inside the [place] Have you lived/traveled outside US in past 30 days?: No Contact w/someone who lives/traveled outside US past 30 days?: No Exposure to someone with infectious disease in past 14 days?: No Do you have a fever (greater than 100.4 F or 38 C)?: No Have you tested positive for COVID-19?: No Exposed to someone with COVID-19 in past 14 days?: No Do you have a sore throat?: No Do you have a cough?: No Do you have any weakness?: No Do you have any diarrhea?: No Are you experiencing any unusual bleeding?: No Do you have any muscle aches/pain?: No Do you have any abdominal pain?: No Are you experiencing loss of taste or smell?: No Other Medical History Have you received the Pneumonia Vaccine: Yes ROS Obtained: Yes Systems reviewed as appropriate & no additional complaints except as documented Physical Exam General General appearance: alert and in no apparent distress Head Head exam: atraumatic and normocephalic Eye Eye exam: Present normal appearance ENT ENT exam: Present normal exam and normal oropharynx Neck Neck exam: Present full ROM and trachea midline Chest Chest inspection: Present symmetric chest wall rise Respiratory Respiratory exam: Present normal lung sounds bilaterally Cardiovascular Cardiovascular exam: Present regular rate and normal rhythm Abdominal Exam Abdominal exam: Present soft; Absent tenderness Extremities Exam Extremities exam: Present normal inspection; Absent tenderness Back Exam Back exam: Absent CVA tenderness (R) or CVA tenderness (L) Neurological Exam Neurological exam: Present alert and oriented X3 Medical Decision Making Medical Records Medical records reviewed: Yes I reviewed the patient's medical records. Screening: Per USPSTF and CDC recommendations, given the prevalence of disease in our region, it is our hospital?s policy to screen for HIV and viral Hepatitis for all patients aged 18 and over and those with ongoing risk factors. Jan Inquiry Pt receiving controlled substance: No Jan was queried for this patient: No Vital Signs: 04/20/25 18:30 04/20/25 18:33 04/20/25 19:00 Temperature 97.8 F Temperature Source Oral Pulse Rate 82 65 Pulse Rate [Right] 82 Respiratory Rate 19 20 15 Blood Pressure 102/52 L 91/56 L Blood Pressure [Right Arm] 94/52 L Blood Pressure Mean 63 Blood Pressure Mean [Right Arm] 66 02 Sat by Pulse Oximetry 94 L 97 95 Oxygen Delivery Method Room Air 04/20/25 19:30 04/20/25 20:00 04/20/25 20:30 Temperature 98 F Temperature Source Pulse Rate 60 62 62 Pulse Rate [Right] Respiratory Rate 14 13 16 Blood Pressure 96/58 L 100/63 L 100/63 L Blood Pressure [Right Arm] Blood Pressure Mean 66 75 Blood Pressure Mean [Right Arm] 02 Sat by Pulse Oximetry 97 96 Oxygen Delivery Method Room Air Lab Data Lab Results 04/20/25 18:37: Troponin I < 0.01 Orders (Tests/Meds): ED MEDICATIONS Discontinued Medications Generic Name Dose Route Start Last Admin Trade Name Freq PRN Reason Stop Dose Admin Lactated Ringer's 500 mls @ 999 mls/hr 04/20/25 18:55 04/20/25 18:58 Lactated Ringer's 1000 Ml Bag IV 04/20/25 19:25 999 mls/hr .Q31M ONE Administration ORDERS Category Date Time Status Troponin I Stat Lab 04/20/25 18:37 Completed ECG Data Tracing #1: I reviewed this ECG and interpreted as documented below: EKG personally interpreted by me demonstrates normal sinus rhythm with a rate of 83 bpm, normal axis, no NJ prolongation, narrow QRS, no QTc prolongation. No ST elevation or depression. No overt signs of ischemia. The patient does have intermittent PACs with P-T fusion. No evidence of A-fib noted on this exam. Tracing #2: I reviewed this ECG and interpreted as documented below: ECG personally interpreted by me demonstrates normal sinus rhythm with a rate of 63 beats per minute, normal axis, no NJ prolongation, narrow QRS, no QTc prolongation. No ST elevation or depression. No overt signs of arrhythmia or ischemia. HEART Score History (anamnesis): Slightly suspicious ECG: Normal Age: >65 years Risk factors: 1-2 risk factors Troponin: </= normal limit HEART Score: 3 Medical Decision Narrative: In summary this is an 84-year-old female patient who is diagnosed with new onset atrial fibrillation this morning and is now presenting to the emergency department again this afternoon with palpitations. The patient was administered 5 mg of IV metoprolol in the emergency department as well as 12 and half milligrams orally. When she returned home she took another 12 and half milligrams of oral metoprolol and then began watering her quinn and developed palpitations following this. She did not have any chest pain or shortness of breath. She re-presented this evening with palpitations and concern she was once again experiencing atrial fibrillation. On initial evaluation she was sitting upright in no acute distress and was nontoxic in appearance. She is hemodynamically stable, saturating well on room air, and neurologically intact. On examination her heart sounds regular. No murmurs appreciated. Lungs are clear to auscultation bilaterally. She is well perfused distally. No lower extremity erythema or edema. Differential diagnosis includes ACS/WV, atrial fibrillation, sinus tachycardia, PACs, PVCs, among others. Electrolyte derangements and PE felt less likely given that these studies were obtained a few hours ago and were negative. Initial workup included repeat troponins given the recurrence of palpitations. Labs personally interpreted by me demonstrates non-ischemic troponins of < 0.01. On arrival we obtained an EKG that shows PACs with T-P fusion complexes. No tachycardia, and no atrial fibrillation/flutter notes. While in the ER she did develop relative hypotension with a MAP of 67, felt to be likely due to the metoprolol she recieved at her visit earlier today. She remained asymptomatic, but because she does not have significant comorbdities I felt it safe to administer fluids. 1 L of LR was administered. She tolerated this well, and on repeat reassessment her MAPs were in the 80's. We did repeat another EKG after a period of time and she remained in normal sinus rhythm without evidence of atrial fibrillation or flutter. We will have her call Dr. Flores's office in the morning as previously discussed/planned from her initial visit this morning. Patient and acknowledge importance and understanding of this plan. At this time all questions have been answered and all parties are agreeable with the decision to discharge home. Critical Care Critical Care Time Critical Care Time: No
[2025-04-20 19:37] LABS: Troponin I < 0.01 ng/ml (0.00-0.034)
[2025-04-20 20:00] VITALS: BP 100/63; PULSE 62; RESP 13; O2SAT 96
[2025-04-20 20:30] VITALS: BP 100/63; PULSE 62; RESP 16; TEMP 36.6; O2SAT 97
== END 2025-04-20 20:40 | disposition home or self-care (01) ==
PROVIDERS: Emergency Provider Student in an Organized Health Care Education/Training Program
DX: R00.2 Palpitations (principal)
CPT/HCPCS: 84484; 93005; 99283; J7120

== ENCOUNTER 2025-04-27 03:56 | Emergency (ER) | payer MEDICARE, OTHER, SELFPAY ==
--- OUTSIDE RECORDS SUMMARY | 2025-03-03 16:30 | XMS_ITS | Encounter Summary ---
Author Organization [facility] Address [address] [place] [address] Care Team Providers Care M48 M60 Armor Crewman Name Role Phone Ameya Moreno MD Primary Care Provider + Reason for Visit * Reason Comments memory issues Encounter Details Date Type Department Care Team (Late st Contact Info) Description 03/03/2025 4:30 PM EDT Office Visit [facility] [address] [place] [address] Ameya Moreno MD [address] [place] [address] Cognitive impairment (Primary Dx); Memory [...] onset documented in this encounter Care Teams M48 M60 Armor Crewman Relationship Specialty Start Date End Date Ameya Moreno MD [address] [place] [id number] PCP - General Family Medicine 03/01/24 documented as of this encounter
--- NOTE | 2025-04-27 03:58 | ECG_ITS ---
APPROVED REPORT Exam: Resting ECG HR:65 bpm ECG Measurements Heart Rate 65 AXES GA 177 P 75 QRSd 94 QRS 62 QT 389 T 66 QTc 400 Conclusion SINUS RHYTHM NORMAL ECG Electronically signed by : WILLIAM SULLIVAN, 04/28/2025 07:12:05
[2025-04-27 04:00] VITALS: BP 152/89; PULSE 60; RESP 21; O2SAT 96
--- OUTSIDE RECORDS SUMMARY | 2025-04-27 04:00 | XMS_ITS | Continuity of Care Document ---
Author Name [facility] Organization [facility] Care Team Providers Care Technical Photographer Name Role Phone [facility] Unavailable Unavailable Immunizations Combined list of available immunizations from the Department of Defense and Veterans Affairs facilities. Immunization Series Date Given Administered By Site Reaction Lot Number CVX Code Drug Cable Television Access Coordinator Status Comments Source zoster live 2015 FELIX SHIELDS () Not Given zoster live DoD Social History Combined list of available smoking, tobacco, and other social history from Department of Defense and Veterans Affairs facilities. Social History Type Response Date Comment Sourc e This section is an empty social history section. DoD
[2025-04-27 04:01] VITALS: BP 170/95; PULSE 68; RESP 20; TEMP 36.7; O2SAT 96
--- OUTSIDE RECORDS SUMMARY | 2025-04-27 04:01 | XMS_ITS | Encounter Summary ---
Author Organization [facility] Address [address] [place] [address] Care Team Providers Care Ticket Writer Name Role Phone Ameya Moreno MD Primary [...] on filedocumented in this encounter Care Teams Ticket Writer Relationship Specialty Start Date End Date Ameya Moreno MD [address] [place] [id number] PCP - General Family Medicine 03/01/24 documented as of this encounter
--- OUTSIDE RECORDS SUMMARY | 2025-04-27 04:02 | XMS_ITS | Encounter Summary ---
Author Organization [facility] Address [address] [place] [address] Care Team Providers Care Flarer Name Role Phone Ameya Moreno MD Primary Care Provider + Encounter Details Date Type Department Care Team (Late st Contact Info) Description 04/06/2025 Results Follow-Up [facility] [address] [place] [address] Ameya Moreno MD [address] [place] [address] Social History Tobacco Use Types [...] onset documented in this encounter Care Teams Flarer Relationship Specialty Start Date End Date Ameya Moreno MD [address] [place] [address] PCP - General Family Medicine 03/01/24 documented as of this encounter
--- OUTSIDE RECORDS SUMMARY | 2025-04-27 04:02 | XMS_ITS | Clinical Summary ---
Author Organization [facility] Address [address] [place] [id number] Care Team Providers Care Health Information Clerk Name Role Phone Ameya Moreno MD Primary Care Provider + Allergies No known active allergies Medications melatonin 5 MG tablet tablet Take 1 tablet by mouth. Active aspirin 81 MG EC tablet Take 1 tablet by mouth Daily. Active Encounters Date Type Department Care Team Description 04/06/2025 Results Follow-Up [facility] [address] [place] [address] Ameya Moreno MD 03/03/2025 4:30 PM EDT Office Visit [facility] [address] [place] [address] Ameya Moreno MD Cognitive impairment (Primary [...] Name Priority Date/Time Associated Diagnosis Comments SCANNED EKG 04/20/2025 SCANNED EKG 04/20/2025 SCANNED - LABS 04/20/2025 SCANNED - LABS 04/20/2025 SCANNED - LABS 04/20/2025 SCANNED - LABS 04/20/2025 SCANNED - IMAGING 04/20/2025 SCANNED - IMAGING 04/20/2025 SCANNED - LABS 04/19/2025 SCANNED - LABS 03/06/2025 SCANNED COGNITIVE ASSESSMENT 03/03/2025 from Last 3 Months Results * ECG Scan (04/20/2025) Only the most recent of2 resultswithin the time period is included. Ameya Moreno MD ECG ORDERABLES Final Re sult * IMAGING SCANNED (04/20/2025) Only the most recent of2 resultswithin the time period is included. Anatomical Region Laterality Modality Radiographic Stacy ging Ameya Moreno MD IMG DIAGNOSTIC IMAGING O RDERABLES Final Result * LABS SCANNED (04/20/2025) Only the most recent of6 resultswithin the time period is included. Ameya Moreno MD LAB BLOOD ORDERABLES Fin al Result * COGNITIVE ASSESSMENT SCAN (03/03/2025) Ameya Moreno MD NEUROLOGY ORDERABLES Fin al Result from Last 3 Months Insurance [employer] P[employer] Care Teams Health Information Clerk Relationship Specialty Start Date End Date Ameya Moreno [place] [address] PCP - General Family Medicine 03/01/24
--- NOTE | 2025-04-27 04:04 | PC.NURSE ---
Pt awake alert and oriented Skin pink warm and dry Pt in SR per continuous heart monitor. Speech clear and appropriate. at bedside.
--- NOTE | 2025-04-27 04:06 | XR_ITS ---
PROCEDURE INFORMATION: Exam: XR Chest Exam date and time: 04/27/2025 4:18 AM Age: 84 years old Clinical indication: Other: Palpitations TECHNIQUE: Imaging protocol: Radiologic exam of the chest. Views: 1 view. COMPARISON: CT ANGIO CHEST PE PROTOCOL 04/20/2025 2:48 PM FINDINGS: Lungs: Chronic interstitial change. Mild hyperexpansion. No consolidation. Pleural spaces: Unremarkable. No pleural effusion. No pneumothorax. Heart/Mediastinum: Unremarkable. No cardiomegaly. Bones/joints: Unremarkable. IMPRESSION: No acute findings.
--- NOTE | 2025-04-27 04:06 | HMH.EDGENADL ---
Discharge Plan Disposition Patient Disposition: Home, Self-Care Condition: Good Prescriptions Prescriptions: No Action metoprolol tartrate 25 mg tablet 12.5 mg PO BID Qty: 30 0RF Xarelto 20 mg tablet 20 mg PO HS Qty: 30 0RF Rx Instructions: take with a meal every evening Referrals Follow up/Referrals: Provider,Referral, [Primary Care Provider, Medical] - See instructions Activity Restrictions/Add. Instructions Additional Instructions/Restrictions: You were evaluated in the ER and are believed to be appropriate for discharge at this time. Continue your home medications as previously prescribed. Go to the cardiology appointment today at 9 AM. Follow-up with your primary care doctor and all other scheduled appointments as well. Return to the ER with any new, worsening, or otherwise concerning symptoms. Clinical Impressions Clinical Impression: Heart palpitations Print Language Print Language: [place] Discharge ED Provider: Josef Garcia Adult HPI General Chief complaint: Chest Pain Stated complaint: palpitations Time Seen by Provider: 04/27/25 04:00 Mode of Arrival: Ambulatory Source of Information: Patient Description of Symptoms (Recalled from ER Triage Doc. by RN): Woke up with felling of heart racing History of Present Illness HPI narrative: 84-year-old female presents to the ER with a complaint of palpitations. Patient reports she was recently diagnosed with atrial fibrillation and woke up a couple hours ago feeling like she could feel her heartbeat in her chest and that it was rapid. She was concerned that she was in atrial fibrillation so she came to the ER for further evaluation. She has no chest pain or pressure, no numbness, tingling, or weakness, no difficulty breathing, no swelling in the feet or legs, no lightheadedness, arm pain, nausea, vomiting, diarrhea, abdominal pain, or any other associated symptoms. She describes no recent illness. Patient was recently seen in the ER for similar complaints and was started on metoprolol and Xarelto which she has been taking daily. She states she has no other medical conditions, no other daily medications, no known drug allergies. Patient reports she has follow-up with cardiology scheduled for May 01. She states even while sitting here in the ER she still feels the sensation of her heart beating in her chest. She adamantly denies any pain or pressure. She states she has no discomfort. Related Data Previous Rx's ?Medication ?Instructions ?Recorded metoprolol tartrate 25 mg tablet 12.5 mg (1/2 x 25 mg) PO BID #30 04/20/25 tabs rivaroxaban 20 mg tablet (Xarelto) 20 mg PO HS #30 tabs 04/20/25 Allergies Allergy/AdvReac Type Severity Reaction Status Date / Time No Known Allergies Allergy Verified 06/29/19 11:09 [facility] Disclaimer: The information contained in this section may have been updated after the patient was seen, as this information can be updated by other users. Social History Smoking Status: Never smoker alcohol intake: former substance use type: denies use current occupational status: employed Travel in the last 8 weeks?: Inside the [place] Other Medical History Have you received the Pneumonia Vaccine: Yes ROS Obtained: Yes Systems reviewed as appropriate & no additional complaints except as documented Per HPI Physical Exam General General appearance: alert and in no apparent distress Head Head exam: atraumatic and normocephalic Eye Eye exam: Present PERRL and EOMI ENT ENT exam: Present mucous membranes moist Neck Neck exam: Present normal inspection and full ROM Chest Chest inspection: Present symmetric chest wall rise Respiratory Respiratory exam: Present normal lung sounds bilaterally; Absent respiratory distress, wheezes or stridor Cardiovascular Cardiovascular exam: Present regular rate, normal rhythm and other (2+ pulses throughout) Abdominal Exam Abdominal exam: Present soft; Absent distention or tenderness Extremities Exam Extremities exam: Present full ROM; Absent edema Neurological Exam Neurological exam: Present alert and oriented X3; Absent motor sensory deficit Psychiatric Psychiatric exam: Present normal affect and normal mood Skin Skin exam: Present warm and dry Medical Decision Making Medical Records Medical records reviewed: Yes I reviewed the patient's medical records. Screening: Per USPSTF and CDC recommendations, given the prevalence of disease in our region, it is our hospital?s policy to screen for HIV and viral Hepatitis for all patients aged 18 and over and those with ongoing risk factors. Jan Inquiry Pt receiving controlled substance: No Vital Signs: 04/27/25 04:00 04/27/25 04:01 04/27/25 04:08 Temperature 98.0 F Temperature Source Oral Pulse Rate 60 59 L Pulse Rate [Right Radial] 68 Respiratory Rate 21 20 Blood Pressure 152/89 H Blood Pressure [Right Arm] 170/95 H Blood Pressure Mean 126 Blood Pressure Mean [Right Arm] 120 Blood Pressure Source Blood Pressure Source [Right Arm] Automatic Cuff Blood Pressure Position Blood Pressure Position [Right Arm] Supine 02 Sat by Pulse Oximetry 96 96 Oxygen Delivery Method Room Air 04/27/25 04:30 04/27/25 04:57 Temperature 98.0 F Temperature Source Oral Pulse Rate 60 58 L Pulse Rate [Right Radial] Respiratory Rate 17 20 Blood Pressure 130/84 130/84 Blood Pressure [Right Arm] Blood Pressure Mean 99 Blood Pressure Mean [Right Arm] Blood Pressure Source Automatic Cuff Blood Pressure Source [Right Arm] Blood Pressure Position Sitting Blood Pressure Position [Right Arm] 02 Sat by Pulse Oximetry 96 Oxygen Delivery Method Room Air Lab Data Lab Results 04/27/25 04:00: WBC 9.4, RBC 4.73, Hgb 13.9, Hct 42.3, MCV 89.4, MCH 29.4, MCHC 32.9, RDW 16.9, Plt Count 500 H, MPV 10.0, Neut % (Auto) 42.7, Lymph % (Auto) 47.0, Carver % (Auto) 7.3, Eos % (Auto) 1.9, Baso % (Auto) 0.9, Neut # (Auto) 4.0, Lymph # (Auto) 4.4, Carver # (Auto) 0.7, Eos # (Auto) 0.2, Baso # (Auto) 0.1, Sodium 141, Potassium 3.9, Chloride 107, Carbon Dioxide 26, Anion Gap 11.9, BUN 10, Creatinine 0.70, Estimated Creat Clear 32, Estimated GFR 80, Est GFR ( Amer) 96, Glucose 102 H, Calcium 10.2, Magnesium 2.1, Total Bilirubin 0.9, AST 26, ALT 10 L, Alkaline Phosphatase 86, Troponin I < 0.01, NT-Pro-B Natriuret Pep 183, Total Protein 8.8 H, Albumin 4.5, Globulin 4.3 H, Albumin/Globulin Ratio 1.0 L, TSH 2.12, Free T4 0.90 04/27/25 04:00 04/27/25 04:00 Orders (Tests/Meds): ORDERS Category Date Time Status CXR --portable [XR chest portable] Stat Exams 04/27/25 04:06 Completed BNP [NT Pro Brain Natriuretic Pep.] Stat Lab 04/27/25 04:00 Completed CBC w/Auto Diff [Complete Blood Count Auto Diff] Stat Lab 04/27/25 04:00 Completed CMP [Comprehensive Metabolic Panel] Stat Lab 04/27/25 04:00 Completed Free T4 (Free Thyroxine) Stat Lab 04/27/25 04:00 Completed Magnesium Stat Lab 04/27/25 04:00 Completed TSH [Thyroid Stimulating Hormone] Stat Lab 04/27/25 04:00 Completed Trop I [Troponin I] Stat Lab 04/27/25 04:00 Completed Troponin I Q3H Lab 04/27/25 07:15 Ordered Troponin I Q3H Lab 04/27/25 10:15 Ordered Medical Decision Narrative: In summary, this 84-year-old female with comorbidities described in the HPI presents to the emergency department today with a sensation of palpitations without chest pain or pressure. On initial evaluation patient is somewhat hypertensive but otherwise hemodynamically stable, afebrile, heart rate is in normal sinus rhythm with rate in the 60s, no peripheral edema, remainder of exam benign. Differential diagnosis includes but is not limited to palpitations, atrial fibrillation, atrial flutter, other arrhythmia, I considered the possibility of ACS however without pain or pressure have extremely low suspicion for this, patient has no shortness of breath so I do not suspect CHF exacerbation or other acute pulmonary pathology, also considered thyroid abnormality, I did consider the possibility of electrolyte abnormality though patient has had no volume losses or significant medication changes to cause this. Patient is hemodynamically stable with no chest pain or shortness of breath, no tachycardia or hypotension, I do not believe she has PE especially since she had negative PET scan when she initially had her symptoms a week ago and has been on blood thinner since that time. Based on these concerns, I ordered cardiac workup, serum labs. ECG personally interpreted demonstrates normal sinus rhythm, rate 65, normal axis, normal NH and QTc, no STEMI. While not captured on EKG, patient has had few PVCs appreciated on the monitor during initial evaluation in the ER but they are not frequent. Patient was hemodynamically stable with no specific concerning complaints at this time so no medications were initiated in the ER. Labs personally reviewed demonstrate no leukocytosis or anemia, thrombocythemia similar to previous labs, CMP with no actionable electrolyte abnormalities, troponin undetectably low less than 0.01, BNP normal, thyroid studies reassuring and nonactionable. With patient not having any chest pain or pressure and symptoms ongoing for a few hours I do not believe she requires serial troponins at this time since she is going to have close outpatient follow-up with cardiology. I do not believe her labs indicate any need for further intervention at this time. XR personally interpreted demonstrates no acute thoracic abnormality, see radiology read for final interpretation. On reassessment patient remains hemodynamically stable, she has been on the teletypesetter monitor with no episodes of atrial fibrillation, flutter, or other arrhythmias besides occasional PVCs which are not correlating with her palpitation symptoms. She remains pain-free, no lightheadedness or difficulty breathing. I believe patient is appropriate for discharge at this time and she is comfortable with this plan. She was provided a 9 AM appointment with cardiology clinic follow-up today. She was given instructions on arrival for this appointment, continued symptomatic monitoring and management, continued follow-up, and strict return precautions for the ER. She indicated understanding and the patient was discharged in stable condition. Critical Care Critical Care Time Critical Care Time: No
[2025-04-27 04:08] VITALS: PULSE 59
--- NOTE | 2025-04-27 04:18 | PC.NURSE ---
xray done at bedside
[2025-04-27 04:19] LABS: Hematocrit 42.3 % (37.0-47.0); Hemoglobin 13.9 g/dL (12.2-16.2); Immature Granulocytes % 0.2 %; Mean Corpuscular HGB Conc 32.9 g/dL (31.8-35.4); Mean Corpuscular Hemoglobin 29.4 pg (27.0-31.2); Mean Corpuscular Volume 89.4 fl (81-99); Nucleated Red Blood Cells % 0 %; Platelet Count 500 K/mm3 (142-424); Red Blood Count 4.73 M/mm3 (4.20-5.40); Red Cell Distribution Width-SD 55.5 fL; White Blood Count 9.4 K/mm3 (4.8-10.8)
[2025-04-27 04:23] LABS: Alanine Aminotransferase 10 U/L (12-78); Albumin Level 4.5 g/dl (3.5-5.0); Albumin/Globulin Ratio 1.0 (1.1-1.8); Alkaline Phosphatase 86 U/L (38-126); Anion Gap 11.9 mEq/L (5-15); Aspartate Amino Transferase 26 U/L (14-36); Bilirubin,Total 0.9 mg/dl (0.2-1.3); Blood Urea Nitrogen 10 mg/dl (7-17); Calcium 10.2 mg/dl (8.4-10.2); Carbon Dioxide 26 mmol/L (22.0-30.0); Chloride 107 mmol/L (98-107); Creatinine Clearance Estimated 32 mL/min (50-200); Creatinine,Serum 0.70 mg/dl (0.52-1.04); Estimated Glomerular Filt Rate 80 ml/min (>60); GFR (African American) 96 ML/MIN (>60); Globulin 4.3 g/dL (1.3-3.2); Glucose 102 mg/dl (74-100); Potassium 3.9 mmoL/L (3.5-5.1); Sodium 141 mmol/L (136-145); Total Protein,Serum 8.8 g/dl (6.3-8.2)
[2025-04-27 04:30] VITALS: BP 130/84; PULSE 60; RESP 17; O2SAT 96
[2025-04-27 04:34] LABS: Magnesium 2.1 mg/dl (1.6-2.3)
[2025-04-27 04:45] LABS: NT Pro Brain Natriuretic Pep. 183 pg/mL (0-450); Troponin I < 0.01 ng/ml (0.00-0.034)
[2025-04-27 04:53] LABS: Free T4 (Free Thyroxine) 0.90 ng/dl (0.78-2.19)
[2025-04-27 04:54] LABS: Thyroid Stimulating Hormone 2.12 uIU/mL (0.465-4.68)
[2025-04-27 04:57] VITALS: BP 130/84; PULSE 58; RESP 20; TEMP 36.7; O2SAT 97
== END 2025-04-27 05:09 | disposition home or self-care (01) ==
PROVIDERS: Emergency Provider Emergency Medicine
DX: R00.2 Palpitations (principal); I48.91 Unspecified atrial fibrillation
CPT/HCPCS: 71045; 80053; 83735; 83880; 84439; 84443; 84484; 85025; 93005; 99284; 99285

== ENCOUNTER 2025-04-27 09:52 | Outpatient (CLI) | payer MEDICARE, OTHER, SELFPAY ==
--- OUTSIDE RECORDS SUMMARY | 2025-03-03 16:30 | XMS_ITS | Encounter Summary ---
Author Organization [facility] Address [address] [place] [address] Care Team Providers Care Pit Manager Name Role Phone Ameya Moreno MD Primary Care Provider + Reason for Visit * Reason Comments memory issues Encounter Details Date Type Department Care Team (Late st Contact Info) Description 03/03/2025 4:30 PM EDT Office Visit [facility] [address] [place] [address] Ameya Moreno MD [address] [place] [address] Cognitive impairment (Primary Dx); Memory [...] onset documented in this encounter Care Teams Pit Manager Relationship Specialty Start Date End Date Ameya Moreno MD [address] [place] [id number] PCP - General Family Medicine 03/01/24 documented as of this encounter
--- OUTSIDE RECORDS SUMMARY | 2025-04-27 04:00 | XMS_ITS | Continuity of Care Document ---
Author Name [facility] Organization [facility] Care Team Providers Care Music Therapy Teacher Name Role Phone [facility] Unavailable Unavailable Immunizations Combined list of available immunizations from the Department of Defense and Veterans Affairs facilities. Immunization Series Date Given Administered By Site Reaction Lot Number CVX Code Drug Brickmason Helper Status Comments Source zoster live 2015 FELIX SHIELDS () Not Given zoster live [facility] Social History Combined list of available smoking, tobacco, and other social history from Department of Defense and Veterans Affairs facilities. Social History Type Response Date Comment Sourc e This section is an empty social history section. DoD
--- OUTSIDE RECORDS SUMMARY | 2025-04-27 09:56 | XMS_ITS | Clinical Summary ---
Author Organization [facility] Address [address] [place] [id number] Care Team Providers Care Chair Inspector Name Role Phone Ameya Moreno MD Primary Care Provider + Allergies No known active allergies Medications melatonin 5 MG tablet tablet Take 1 tablet by mouth. Active aspirin 81 MG EC tablet Take 1 tablet by mouth Daily. Active Encounters Date Type Department Care Team Description 04/06/2025 Results Follow-Up [facility] [address] [place] [address] Ameya Moreno MD 03/03/2025 4:30 PM EDT Office Visit [facility] [address] [place] [address] Ameya Moreno MD Cognitive impairment (Primary [...] Insurance Medicare [employer] PPO Care Teams Chair Inspector Relationship Specialty Start Date End Date Ameya [place] [address] PCP - General Family Medicine 03/01/24
--- OUTSIDE RECORDS SUMMARY | 2025-04-27 09:56 | XMS_ITS | Encounter Summary ---
Author Organization [facility] Address [address] [place] [address] Care Team Providers Care Sectional Belt Mold Assembler Name Role Phone Ameya Moreno MD Primary [...] on filedocumented in this encounter Care Teams Sectional Belt Mold Assembler Relationship Specialty Start Date End Date Ameya Moreno MD [address] [place] [id number] PCP - General Family Medicine 03/01/24 documented as of this encounter
--- OUTSIDE RECORDS SUMMARY | 2025-04-27 09:56 | XMS_ITS | Encounter Summary ---
Author Organization [facility] Address [address] [place] [address] Care Team Providers Care Big Data Platform Architect Name Role Phone Ameya Moreno MD Primary Care Provider + Encounter Details Date Type Department Care Team (Late st Contact Info) Description 04/06/2025 Results Follow-Up [facility] [address] [place] [address] Ameya Moreno MD [address] [place] [address] Social History Tobacco Use Types [...] onset documented in this encounter Care Teams Big Data Platform Architect Relationship Specialty Start Date End Date Ameya Moreno MD [address] [place] [address] PCP - General Family Medicine 03/01/24 documented as of this encounter
== END 2025-04-27 23:59 | disposition home or self-care (01) ==
LOC: RT 09:53
PROVIDERS: PCP Family Medicine; Visit Provider Physician Assistant
DX: I49.1 Atrial premature depolarization (principal); I47.19 Other supraventricular tachycardia; I49.3 Ventricular premature depolarization; I47.29 Other ventricular tachycardia; I48.91 Unspecified atrial fibrillation
CPT/HCPCS: 93270

== ENCOUNTER 2025-05-01 13:24 | Emergency (ER) | payer MEDICARE, OTHER, SELFPAY ==
--- OUTSIDE RECORDS SUMMARY | 2025-03-03 16:30 | XMS_ITS | Encounter Summary ---
Author Organization [facility] Address [address] [place] [address] Care Team Providers Care Aluminum Molder Name Role Phone Ameya Moreno MD Primary Care Provider + Reason for Visit * Reason Comments memory issues Encounter Details Date Type Department Care Team (Late st Contact Info) Description 03/03/2025 4:30 PM EDT Office Visit [facility] [address] [place] [address] Ameya Moreno MD [address] [place] [address] Cognitive impairment (Primary Dx); Memory [...] onset documented in this encounter Care Teams Aluminum Molder Relationship Specialty Start Date End Date Ameya Moreno MD [address] [place] [address] PCP - General Family Medicine 03/01/24 documented as of this encounter
--- NOTE | 2025-05-01 13:26 | ECG_ITS ---
APPROVED REPORT Exam: Resting ECG HR:70 bpm ECG Measurements Heart Rate 70 AXES PA 175 P 73 QRSd 90 QRS 75 QT 398 T 63 QTc 420 Conclusion SINUS RHYTHM WITH OCCASIONAL VENTRICULAR PREMATURE COMPLEXES BORDERLINE ECG UNCONFIRMED REPORT Normal sinus rhythm. PVCs noted. No ST elevation or depression. No T wave inversions. QTc normal at 420 Electronically signed by : ESTEBAN MENDOZA, 05/01/2025 14:23:32
--- OUTSIDE RECORDS SUMMARY | 2025-05-01 13:27 | XMS_ITS | Continuity of Care Document ---
Author Name [facility] Organization [facility] Care Team Providers Care Publishing Specialist Name Role Phone [facility] Unavailable Unavailable Immunizations Combined list of available immunizations from the Department of Defense and Veterans Affairs facilities. Immunization Series Date Given Administered By Site Reaction Lot Number CVX Code Drug Veneer Glue Spreader Status Comments Source zoster live 2015 FELIX SHIELDS () Not Given zoster live [facility] Social History Combined list of available smoking, tobacco, and other social history from Department of Defense and Veterans Affairs facilities. Social History Type Response Date Comment Sourc e This section is an empty social history section. [facility]
--- OUTSIDE RECORDS SUMMARY | 2025-05-01 13:29 | XMS_ITS | Encounter Summary ---
Author Organization [facility] Address [address] [place] [address] Care Team Providers Care Director Utilization Management Name Role Phone Ameya Moreno MD [...] on filedocumented in this encounter Care Teams Director Utilization Management Relationship Specialty Start Date End Date Ameya Moreno MD [address] [place] [id number] PCP - General Family Medicine 03/01/24 documented as of this encounter
--- OUTSIDE RECORDS SUMMARY | 2025-05-01 13:29 | XMS_ITS | Clinical Summary ---
Author Organization [facility] Address [address] [place] [phone] Care Team Providers Care Deli Bakery Clerk Name Role Phone Ameya Moreno MD Primary Care Provider + Allergies No known active allergies Medications melatonin 5 MG tablet tablet Take 1 tablet by mouth. Active aspirin 81 MG EC tablet Take 1 tablet by mouth Daily. Active Encounters Date Type Department Care Team Description 04/06/2025 Results Follow-Up [facility] [address] [place] [address] Ameya Moreno MD 03/03/2025 4:30 PM EDT Office Visit [facility] [address] [place] [address] Ameya Moreno MD Cognitive impairment (Primary [...] Insurance [employer] PPO Care Teams Deli Bakery Clerk Relationship Specialty Start Date End Date Ameya More[place] [address] PCP - General Family Medicine 03/01/24
[2025-05-01 13:30] VITALS: BP 127/66; PULSE 62; RESP 18; TEMP 36.6; O2SAT 97; BMI 19.2
--- OUTSIDE RECORDS SUMMARY | 2025-05-01 13:30 | XMS_ITS | Encounter Summary ---
Author Organization [facility] Address [address] [place] [address] Care Team Providers Care Botanical Technical Officer Name Role Phone Ameya Moreno MD Primary Care Provider + Encounter Details Date Type Department Care Team (Late st Contact Info) Description 04/06/2025 Results Follow-Up [facility] [address] [place] [address] Ameya Moreno MD [address] [place] [address] Social History Tobacco Use Types [...] onset documented in this encounter Care Teams Botanical Technical Officer Relationship Specialty Start Date End Date Ameya Moreno MD [address] [place] [address] PCP - General Family Medicine 03/01/24 documented as of this encounter
--- NOTE | 2025-05-01 13:36 | XR_ITS ---
FINAL REPORT CLINICAL HISTORY: palpitations, shortness of breath COMPARISON: 04/27/2025 FINDINGS: CHEST 1 VIEW The heart size is normal. The mediastinum is normal. There is no focal infiltrate or edema. There is scarring at the right base. There are no pleural effusions. There is no pneumothorax. There is no osseous abnormality. IMPRESSION: No acute cardiopulmonary process Reviewed, Interpreted and Dictated by José Ruiz MD Transcribed by Emma Esqueda Authenticated and [facility]
--- NOTE | 2025-05-01 13:37 | HMH.EDGENADL ---
Discharge Plan Disposition Patient Disposition: Home, Self-Care Prescriptions Prescriptions: No Action metoprolol tartrate 25 mg tablet 12.5 mg PO BID Qty: 30 0RF Xarelto 20 mg tablet 20 mg PO HS Qty: 30 0RF Rx Instructions: take with a meal every evening Referrals Follow up/Referrals: Provider,Referral, [Referring, Medical] - See instructions Activity Restrictions/Add. Instructions Additional Instructions/Restrictions: Follow-up with the cardiology clinic as scheduled. Continue to wear your patient monitor until your follow-up. Continue to take your metoprolol and Xarelto as prescribed. If you develop any new or worsening symptoms, or if you become concerned for your health for any reason, return to the emergency department for evaluation. Clinical Impressions Clinical Impression: Heart palpitations Print Language Print Language: Lithuanian Discharge ED Provider: Joon Moore Adult HPI General Chief complaint: Chest Pain Stated complaint: Chest Pain Time Seen by Provider: 05/01/25 13:25 Mode of Arrival: Ambulatory Source of Information: Patient and Spouse Description of Symptoms (Recalled from ER Triage Doc. by RN): Patient presents to ED for chest pain starting last night. Patient reports pain at 7/10 and states she can feel palpitations. History of Present Illness HPI narrative: Elise Armando is an 84-year-old female with a history of tobacco use, reported history of A-fib with RVR and chart on metoprolol and Xarelto who presents to the emergency department for complaints of palpitations. Patient states that she has been having palpitations for some time and last night when she was laying down trying to go to sleep, she noticed palpitations in her chest. She states that it kept her up for some time last night before she was able to fall asleep. She states that she has been up and about this morning and thought she had an appointment with cardiology, Urvashi Epps, this afternoon at 1:30 PM, however they were mistaken. They are not sure when she is actually scheduled for the appointment. She notes that she has been seen in the emergency department recently, most recently on 04/27, and was seen in cardiology clinic at 9 AM that morning and was put on Holter monitor. She states that she has been wearing the Holter monitor. She denies any chest pain or shortness of breath but describes them as palpitations. She denies any recent falls. Related Data Previous Rx's ?Medication ?Instructions ?Recorded metoprolol tartrate 25 mg tablet 12.5 mg (1/2 x 25 mg) PO BID #30 04/20/25 tabs rivaroxaban 20 mg tablet (Xarelto) 20 mg PO HS #30 tabs 04/20/25 Allergies Allergy/AdvReac Type Severity Reaction Status Date / Time No Known Allergies Allergy Verified 04/27/25 09:18 [facility] Disclaimer: The information contained in this section may have been updated after the patient was seen, as this information can be updated by other users. Medical History (Updated 05/01/25 @ 15:17 by Joon Moore MD) Other chest pain Family History (Updated 05/01/25 @ 13:32 by Pattie Meng RN) Other No significant family history Social History Smoking Status: Current every day smoker tobacco type: cigarettes alcohol intake: former substance use type: denies use current occupational status: employed Travel in the last 8 weeks?: Inside the [place] Have you lived/traveled outside US in past 30 days?: No Contact w/someone who lives/traveled outside US past 30 days?: No Exposure to someone with infectious disease in past 14 days?: No Do you have a fever (greater than 100.4 F or 38 C)?: No Have you tested positive for COVID-19?: No Exposed to someone with COVID-19 in past 14 days?: No Do you have a sore throat?: No Do you have a cough?: No Do you have any weakness?: No Do you have any diarrhea?: No Are you experiencing any unusual bleeding?: No Do you have any muscle aches/pain?: No Do you have any abdominal pain?: No Are you experiencing loss of taste or smell?: No Other Medical History Have you received the Pneumonia Vaccine: Yes ROS Obtained: Yes Systems reviewed as appropriate & no additional complaints except as documented Physical Exam General General appearance: alert and in no apparent distress Head Head exam: atraumatic Eye Eye exam: Present normal appearance ENT ENT exam: Present normal external ear exam Neck Neck exam: Present full ROM Chest Chest inspection: Present symmetric chest wall rise Respiratory Respiratory exam: Present normal lung sounds bilaterally; Absent respiratory distress Cardiovascular Cardiovascular exam: Present regular rate and normal rhythm Abdominal Exam Abdominal exam: Present soft; Absent tenderness or guarding Extremities Exam Extremities exam: Present normal inspection; Absent edema Back Exam Back exam: Present normal inspection Neurological Exam Neurological exam: Present alert and oriented X3 Psychiatric Psychiatric exam: Present normal affect Skin Skin exam: Present warm and dry Medical Decision Making Medical Records Screening: Per USPSTF and CDC recommendations, given the prevalence of disease in our region, it is our hospital?s policy to screen for HIV and viral Hepatitis for all patients aged 18 and over and those with ongoing risk factors. Jan Inquiry Pt receiving controlled substance: No Vital Signs: 05/01/25 13:30 05/01/25 13:30 05/01/25 14:00 Temperature 97.8 F 97.8 F Temperature Source Oral Oral Pulse Rate 62 57 L Pulse Rate [Right] 62 Respiratory Rate 18 18 13 Blood Pressure 127/66 108/67 L Blood Pressure [Right Arm] 127/66 Blood Pressure Mean [Right Arm] 86 Blood Pressure Source Blood Pressure Source [Right Arm] Automatic Cuff Blood Pressure Position Blood Pressure Position [Right Arm] Sitting 02 Sat by Pulse Oximetry 97 97 96 Oxygen Delivery Method Room Air Room Air 05/01/25 14:00 05/01/25 14:31 05/01/25 15:00 Temperature Temperature Source Pulse Rate 50 L 46 L 46 L Pulse Rate [Right] Respiratory Rate 15 22 21 Blood Pressure 108/68 L 118/69 128/77 Blood Pressure [Right Arm] Blood Pressure Mean [Right Arm] Blood Pressure Source Blood Pressure Source [Right Arm] Blood Pressure Position Blood Pressure Position [Right Arm] 02 Sat by Pulse Oximetry 96 95 95 Oxygen Delivery Method 05/01/25 15:29 Temperature 97.8 F Temperature Source Oral Pulse Rate 55 L Pulse Rate [Right] Respiratory Rate 16 Blood Pressure 128/77 Blood Pressure [Right Arm] Blood Pressure Mean [Right Arm] Blood Pressure Source Automatic Cuff Blood Pressure Source [Right Arm] Blood Pressure Position Sitting Blood Pressure Position [Right Arm] 02 Sat by Pulse Oximetry Oxygen Delivery Method Room Air Lab Data Lab Results 05/01/25 13:30: WBC 9.7, RBC 4.36, Hgb 13.0, Hct 39.1, MCV 89.7, MCH 29.8, MCHC 33.2, RDW 17.1, Plt Count 483 H, MPV 10.5 H, Neut % (Auto) 51.5, Lymph % (Auto) 37.5, [place] % (Auto) 8.6, Eos % (Auto) 1.3, Baso % (Auto) 0.9, Neut # (Auto) 5.0, Lymph # (Auto) 3.6, [place] # (Auto) 0.8, Eos # (Auto) 0.1, Baso # (Auto) 0.1, Sodium 138, Potassium 3.9, Chloride 107, Carbon Dioxide 27, Anion Gap 7.9, BUN 10, Creatinine 0.80, Estimated Creat Clear 31, Estimated GFR 68, Est GFR ( Amer) 83, Glucose 108 H, Calcium 9.8, Total Bilirubin 0.7, AST 25, ALT 11 L, Alkaline Phosphatase 84, Troponin I < 0.01, NT-Pro-B Natriuret Pep 307, Total Protein 7.9, Albumin 4.3, Globulin 3.6 H, Albumin/Globulin Ratio 1.2, TSH 0.68, Free T4 0.95 05/01/25 13:30 05/01/25 13:30 Orders (Tests/Meds): ORDERS Category Date Time Status CXR --portable [XR chest portable] Stat Exams 05/01/25 13:36 Completed BNP [NT Pro Brain Natriuretic Pep.] Stat Lab 05/01/25 13:30 Completed CBC w/Auto Diff [Complete Blood Count Auto Diff] Stat Lab 05/01/25 13:30 Completed CMP [Comprehensive Metabolic Panel] Stat Lab 05/01/25 13:30 Completed Free T4 (Free Thyroxine) Stat Lab 05/01/25 13:30 Completed TSH [Thyroid Stimulating Hormone] Stat Lab 05/01/25 13:30 Completed Troponin I Stat Lab 05/01/25 13:30 Completed ECG Data Tracing #1: I reviewed this ECG and interpreted as documented below: Normal sinus rhythm. Occasional PVCs. No ST elevation or depression. QTc normal at 420 Medical Decision Narrative: Elise Armando is an 84-year-old female with a history of tobacco use, reported history of A-fib with RVR and chart on metoprolol and Xarelto who presents to the emergency department for complaints of palpitations. Patient states that she has been having palpitations for some time and last night when she was laying down trying to go to sleep, she noticed palpitations in her chest. She states that it kept her up for some time last night before she was able to fall asleep. She states that she has been up and about this morning and thought she had an appointment with cardiology, Urvashi Epps, this afternoon at 1:30 PM, however they were mistaken. They are not sure when she is actually scheduled for the appointment. She notes that she has been seen in the emergency department recently, most recently on 04/27, and was seen in cardiology clinic at 9 AM that morning and was put on Holter monitor. She states that she has been wearing the Holter monitor. She denies any chest pain or shortness of breath but describes them as palpitations. She denies any recent falls. On arrival, patient is normotensive, heart rate normal at 62 bpm, breathing comfortably on room air with appropriate oxygen saturation. Afebrile. Physical exam, as stated above, reveals an overall well-appearing female in no distress. Cardiopulmonary exam reveals no murmurs, wheezing, rales or rhonchi. She is GCS 15 speaking full sentences. She has no evidence of peripheral edema. Abdomen soft, nontender nondistended. Differential diagnosis includes, but is not limited to: Cardiac arrhythmia, electrolyte derangement, premature ventricular contractions, ACS, hyperthyroidism, among others. The most morbid conditions were considered and workup was based on these. Workup in the emergency room included: Chest x-ray, EKG, troponin, BNP, TSH/free T4, CBC, CMP EKG with PVCs but no evidence of ischemia. See interpretation above. Cardiology note from 04/27/2025 was reviewed by me personally. On patient's initial ER visit, she was diagnosed with A-fib was put on metoprolol and Xarelto. With each subsequent visit to the emergency department, she was found to be in sinus rhythm. At that time, patient was put on a 2-week event monitor with plan to do outpatient echo and a Lexiscan. Plan was to follow-up with patient in 2 weeks. Chest x-ray was interpreted by me personally: No focal consolidation, no pneumothorax, no widening of the mediastinum. No enlarged cardiac silhouette. Unremarkable chest x-ray. See radiology report for final details. Laboratory studies were interpreted by me personally: No anemia, no leukocytosis, platelets near baseline of 483, electrolytes within normal limits, no DONALD, initial opponent less than 0.01, liver enzymes within normal limits. BNP normal at 307. Thyroid studies within normal limits. On reassessment, patient remained in stable condition. She had no worsening of her symptoms and does not complain palpitations at this time. Her states that she has follow-up on May 25 at the specialty clinic. I advised that she continue to wear her Holter monitor and to follow-up with them to discuss her follow-up appointment as the previous note said to follow-up in 2 weeks, which would be around the of this month. Return precautions were given. All questions were answered. She and her demonstrated understanding and was agreed with this plan. She was then discharged from the emergency department in stable condition. Critical Care Critical Care Time Critical Care Time: No
[2025-05-01 13:53] LABS: Hematocrit 39.1 % (37.0-47.0); Hemoglobin 13.0 g/dL (12.2-16.2); Immature Granulocytes % 0.2 %; Mean Corpuscular HGB Conc 33.2 g/dL (31.8-35.4); Mean Corpuscular Hemoglobin 29.8 pg (27.0-31.2); Mean Corpuscular Volume 89.7 fl (81-99); Nucleated Red Blood Cells % 0 %; Platelet Count 483 K/mm3 (142-424); Red Blood Count 4.36 M/mm3 (4.20-5.40); Red Cell Distribution Width-SD 56.1 fL; White Blood Count 9.7 K/mm3 (4.8-10.8)
[2025-05-01 14:00] VITALS: BP 108/67; BP 108/68; PULSE 50; PULSE 57; RESP 13; RESP 15; O2SAT 96
[2025-05-01 14:31] VITALS: BP 118/69; PULSE 46; RESP 22; O2SAT 95
[2025-05-01 14:31] LABS: Alanine Aminotransferase 11 U/L (12-78); Albumin Level 4.3 g/dl (3.5-5.0); Albumin/Globulin Ratio 1.2 (1.1-1.8); Alkaline Phosphatase 84 U/L (38-126); Anion Gap 7.9 mEq/L (5-15); Aspartate Amino Transferase 25 U/L (14-36); Bilirubin,Total 0.7 mg/dl (0.2-1.3); Blood Urea Nitrogen 10 mg/dl (7-17); Calcium 9.8 mg/dl (8.4-10.2); Carbon Dioxide 27 mmol/L (22.0-30.0); Chloride 107 mmol/L (98-107); Creatinine Clearance Estimated 31 mL/min (50-200); Creatinine,Serum 0.80 mg/dl (0.52-1.04); Estimated Glomerular Filt Rate 68 ml/min (>60); GFR (African American) 83 ML/MIN (>60); Globulin 3.6 g/dL (1.3-3.2); Glucose 108 mg/dl (74-100); Potassium 3.9 mmoL/L (3.5-5.1); Sodium 138 mmol/L (136-145); Total Protein,Serum 7.9 g/dl (6.3-8.2)
[2025-05-01 14:44] LABS: NT Pro Brain Natriuretic Pep. 307 pg/mL (0-450)
[2025-05-01 14:46] LABS: Troponin I < 0.01 ng/ml (0.00-0.034)
[2025-05-01 14:48] LABS: Free T4 (Free Thyroxine) 0.95 ng/dl (0.78-2.19)
[2025-05-01 15:00] VITALS: BP 128/77; PULSE 46; RESP 21; O2SAT 95
[2025-05-01 15:03] LABS: Thyroid Stimulating Hormone 0.68 uIU/mL (0.465-4.68)
[2025-05-01 15:29] VITALS: BP 128/77; PULSE 55; RESP 16; TEMP 36.6; O2SAT 95
== END 2025-05-01 15:30 | disposition home or self-care (01) ==
PROVIDERS: Emergency Provider Student in an Organized Health Care Education/Training Program; PCP Family Medicine
DX: R07.89 Other chest pain (principal); R00.2 Palpitations; I48.91 Unspecified atrial fibrillation; F17.210 Nicotine dependence, cigarettes, uncomplicated
CPT/HCPCS: 71045; 80053; 83880; 84439; 84443; 84484; 85025; 93005; 99285

== ENCOUNTER 2025-05-12 07:12 | Emergency (ER) | payer MEDICARE, OTHER, SELFPAY ==
--- OUTSIDE RECORDS SUMMARY | 2025-03-03 16:30 | XMS_ITS | Encounter Summary ---
Author Organization [facility] Address [address] [place] [address] Care Team Providers Care Adjunct Professor Of Law Name Role Phone Ameya Moreno MD Primary Care Provider + Reason for Visit * Reason Comments memory issues Encounter Details Date Type Department Care Team (Late st Contact Info) Description 03/03/2025 4:30 PM EDT Office Visit [facility] [address] [place] [address] Ameya Moreno MD [address] [place] [address] Cognitive impairment (Primary Dx); Memory [...] onset documented in this encounter Care Teams Adjunct Professor Of Law Relationship Specialty Start Date End Date Ameya Moreno MD [address] [place] [address] PCP - General Family Medicine 03/01/24 documented as of this encounter
[2025-05-12] VITALS (10 sets, daily range): BP systolic 135–170; BP diastolic 76–92; PULSE 54–80; RESP 11–21; TEMP 36.6–36.8; O2SAT 96–98; BMI 21.9
--- NOTE | 2025-05-12 07:13 | ECG_ITS ---
APPROVED REPORT Exam: Resting ECG HR:61 bpm ECG Measurements Heart Rate 61 AXES NJ 184 P 78 QRSd 88 QRS 76 QT 401 T 72 QTc 404 Conclusion SINUS RHYTHM NORMAL ECG UNCONFIRMED REPORT Electronically signed by : AGUS GREY, 05/13/2025 06:55:47
--- OUTSIDE RECORDS SUMMARY | 2025-05-12 07:17 | XMS_ITS | Continuity of Care Document ---
Author Name [facility] Organization [facility] Care Team Providers Care Airport Utility Worker Name Role Phone [facility] Unavailable Unavailable Immunizations Combined list of available immunizations from the Department of Defense and Veterans Affairs facilities. Immunization Series Date Given Administered By Site Reaction Lot Number CVX Code Drug Button Cutter Status Comments Source zoster live 2015 FELIX SHIELDS () Not Given zoster live [facility] Social History Combined list of available smoking, tobacco, and other social history from Department of Defense and Veterans Affairs facilities. Social History Type Response Date Comment Sourc e This section is an empty social history section. [facility]
--- OUTSIDE RECORDS SUMMARY | 2025-05-12 07:18 | XMS_ITS | Clinical Summary ---
Author Organization [facility] Address [address] [place] [address] Care Team Providers Care Manager Art Name Role Phone Ameya Moreno MD Primary Care Provider + Allergies No known active allergies Medications melatonin 5 MG tablet tablet Take 1 tablet by mouth. Active aspirin 81 MG EC tablet Take 1 tablet by mouth Daily. Active Encounters Date Type Department Care Team Description 05/09/2025 Telephone [facility] [place] [facility] [address] [place] [phone] Ameya Moreno MD ORDERS 04/06/2025 Results Follow-Up [facility] [place] [facility] [address] [place] [address] Ameya Moreno MD 03/03/2025 4:30 PM EDT Office Visit [facility] [address] [place] [address] Ameya Moreno MD Cognitive impairment (Primary Dx); [...] 12/13/2015 ANNUAL WELLNESS VISIT 01/28/2022 COVID-19 Vaccine (2023-2 5 season) 2024 06/03/2024, 07/08/2023, 06/25/2022, Additional history exists INFLUENZA VACCINE 06/28/2025 07/08/2024, , 07/15/2022, Additional history exists RSV Vaccine - Adults Completed 07/15/2023 Procedures Procedure Name Priority Date/Time Associated Diagnosis Comments SCANNED EKG 05/01/2025 SCANNED - IMAGING 05/01/2025 SCANNED EKG 04/20/2025 SCANNED EKG 04/20/2025 SCANNED - LABS 04/20/2025 SCANNED - LABS 04/20/2025 SCANNED - LABS 04/20/2025 SCANNED - LABS 04/20/2025 SCANNED - IMAGING 04/20/2025 SCANNED - IMAGING 04/20/2025 SCANNED - LABS 04/19/2025 SCANNED - LABS 03/06/2025 SCANNED COGNITIVE ASSESSMENT 03/03/2025 from Last 3 Months Results * ECG Scan (05/01/2025) Only the most recent of3 resultswithin the time period is included. Ameya Moreno MD ECG ORDERABLES Final Re sult * IMAGING SCANNED (05/01/2025) Only the most recent of3 resultswithin the time period is included. Anatomical [...] 3 Months Insurance [employer] PPO Member Subscriber Plan / Payer (Ef fective 2023-Present) Name:Elise Armando Relation to Subscriber:Self Name:Elise Armando Payer ID:[id number] (NAIC) Type:Not on file Address: [place] [id number] Care Teams Manager Art Relationship Specialty Start Date End Date [place] [address] PCP - General Family Medicine 03/01/24
--- OUTSIDE RECORDS SUMMARY | 2025-05-12 07:18 | XMS_ITS | Encounter Summary ---
Author Organization [facility] Address [address] [place] [id number] Care Team Providers Care Oncology Specialist Name Role Phone Ameya Moreno MD Primary Care Provider + Reason for Visit * Reason Onset Date Comments ORDERS 05/09/2025 Encounter Details Date Type Department Care Team (Late st Contact Info) Description 05/09/2025 Telephone [facility] [address] [place] [address] Ameya Moreno MD [address] [place] [address] ORDERS Social History Tobacco Use Types Packs/Day Years [...] on file documented as of this encounter Miscellaneous Notes * Telephone Encounter - Castillo Bojorquez MA - 05/09/2025 9:44 AM EDT I spoke with patient regarding the lab orders from 03/05/25. I informed her that she had already completed the labs but they did not interface correctly in EPIC so they were still showing active. She was concerned because she received a letter from [facility] regarding these overdue/outstanding orders. I assured her there wasn't anything she needed to and that we would get everything taken care of here at the office. Clemencia and I cancelled the outstanding orders and made Dr. Moreno aware. * Telephone Encounter - Gayathri Garcia RegSched Rep - 05/09/2025 9:04 AM EDT Caller: Elise Armando Relationship: Self Best call back number: [phone] What orders are you requesting (i.e. lab or imaging): LABS FROM 03/05/25 In what timeframe would the patient need to come in: ANYTIME Where will you receive your lab/imaging services: [facility] Additional notes: PATIENT IS WANTING THE ORDERS SENT OVER TO [facility] FROM 03/05/25 documented in this encounter Plan of Treatment Not on file documented as of this encounter Visit Diagnoses Not on filedocumented in this encounter Care Teams Oncology Specialist Relationship Specialty Start Date End Date Ameya Moreno MD [address] [place] [address] PCP - General Family Medicine 03/01/24 documented as of this encounter
--- OUTSIDE RECORDS SUMMARY | 2025-05-12 07:18 | XMS_ITS | Encounter Summary ---
Author Organization [facility] Address [address] [place] [address] Care Team Providers Care Assembler Adjuster Name Role Phone Ameya Morneo MD Primary Care Provider + Encounter Details Date Type Department Care Team (Late st Contact Info) Description 04/06/2025 Results Follow-Up [facility] [address] [place] [address] Ameya Moreno MD [address] [place] [address] Social History Tobacco Use Types [...] onset documented in this encounter Care Teams Assembler Adjuster Relationship Specialty Start Date End Date Ameya Moreno MD [address] [place] [address] PCP - General Family Medicine 03/01/24 documented as of this encounter
--- NOTE | 2025-05-12 07:27 | ED_ITS ---
Discharge Plan Disposition Patient Disposition: Home, Self-Care Condition: Good Prescriptions Prescriptions: No Action metoprolol tartrate 25 mg tablet 12.5 mg PO BID Qty: 30 0RF Xarelto 20 mg tablet 20 mg PO HS Qty: 30 0RF Rx Instructions: take with a meal every evening Referrals Follow up/Referrals: Ameya Moreno MD [Primary Care Provider, Medical] - See instructions Activity Restrictions/Add. Instructions Additional Instructions/Restrictions: Call cardiology tomorrow and let them know that you need an appointment in clinic for palpitations. Otherwise return to the emergency department for any acute worsening chest pain shortness of breath or worsening palpitations Clinical Impressions Clinical Impression: Palpitations Print Language Print Language: German Discharge ED Provider: Ellen Vigil General Adult HPI General Chief complaint: Arrhythmia/Palpitations Stated complaint: Chest Pain Time Seen by Provider: 05/12/25 07:13 History of Present Illness HPI narrative: Patient is an 84-year-old female with no significant past medical history except for recent diagnosis of new A-fib on 04/20 who presented to the emergency department with palpitations. Patient states that overnight she noticed that her heart was beating abnormally or that she noticed it more than usual. Patient states that it lasted throughout the night and is still currently there as well. Patient reports some mild chest pain with it as well. Patient denies any shortness of breath. Patient denies any recent fevers cough chills runny nose. Patient denies any abdominal pain nausea vomiting diarrhea. Related Data Previous Rx's ?Medication ?Instructions ?Recorded metoprolol tartrate 25 mg tablet 12.5 mg (1/2 x 25 mg) PO BID #30 04/20/25 tabs rivaroxaban 20 mg tablet (Xarelto) 20 mg PO HS #30 tab s 04/20/25 Allergies Allergy/AdvReac Type Severity Reaction Status Date / Time No Known Allergies Allergy Verified 04/27/25 09:18 [facility] Disclaimer: The information contained in this section may have been updated after the patient was seen, as this information can be updated by other users. Medical History (Updated 05/12/25 @ 11:34 by Ellen Vigil DO) Other chest pain Family History Other No significant family history Social History Smoking Status: Never smoker alcohol intake: former substance use type: denies use current occupational status: employed Travel in the last 8 weeks?: Inside the [place] Have you lived/traveled outside US in past 30 days?: No Contact w/someone who lives/traveled outside US past 30 days?: No Exposure to someone with infectious disease in past 14 days?: No Do you have a fever (greater than 100.4 F or 38 C)?: No Have you tested positive for COVID-19?: No Exposed to someone with COVID-19 in past 14 days?: No Do you have a sore throat?: No Do you have a cough?: No Do you have any weakness?: No Do you have any diarrhea?: No Are you experiencing any unusual bleeding?: No Do you have any muscle aches/pain?: No Do you have any abdominal pain?: No Are you experiencing loss of taste or smell?: No Other Medical History Have you received the Pneumonia Vaccine: Yes ROS Obtained: Yes All systems reviewed & no additional complaints except as documented and Yes Systems reviewed as appropriate & no additional complaints except as documented Physical Exam General General appearance: alert and in no apparent distress Head Head exam: atraumatic, normocephalic and normal inspection Eye Eye exam: Present normal appearance, PERRL and EOMI; Absent scleral icterus ENT ENT exam: Present normal exam and normal external ear exam Neck Neck exam: Present normal inspection and full ROM Chest Chest inspection: Present normal inspection and symmetric chest wall rise Respiratory Respiratory exam: Present normal lung sounds bilaterally; Absent respiratory distress or wheezes Cardiovascular Cardiovascular exam: Present regular rate, normal rhythm and normal heart sounds Abdominal Exam Abdominal exam: Present soft and distention; Absent tenderness, guarding or rebound Extremities Exam Extremities exam: Present normal inspection and full ROM Back Exam Back exam: Present normal inspection and full ROM Neurological Exam Neurological exam: Present alert and oriented X3 Psychiatric Psychiatric exam: Present normal affect and normal mood Skin Skin exam: Present warm and dry Medical Decision Making Medical Records Screening: Per USPSTF and CDC recommendations, given the prevalence of disease in our region, it is our hospital?s policy to screen for HIV and viral Hepatitis for all patients aged 18 and over and those with ongoing risk factors. Jan Inquiry Pt receiving controlled substance: No Vital Signs: 05/12/25 07:12 05/12/25 07:31 05/12/25 07:48 Temperature 98.0 F 98 F Temperature Source Oral Oral Pulse Rate 54 L 80 Pulse Rate [Right] 80 Respiratory Rate 17 11 L 17 Blood Pressure 144/83 H 170/82 H Blood Pressure [Right Arm] 170/82 H Blood Pressure Mean Blood Pressure Mean [Right Arm] 111 Blood Pressure Source Automatic Cuff Blood Pressure Source [Right Arm] Automatic Cuff Blood Pressure Position Supine 02 Sat by Pulse Oximetry 98 96 98 Oxygen Delivery Method Room Air Room Air Room Air 05/12/25 08:00 05/12/25 08:30 05/12/25 09:00 Temperature Temperature Source Pulse Rate 58 L 60 Pulse Rate [Right] Respiratory Rate 13 17 Blood Pressure 154/88 H 153/85 H 135/88 Blood Pressure [Right Arm] Blood Pressure Mean 105 Blood Pressure Mean [Right Arm] Blood Pressure Source Blood Pressure Source [Right Arm] Blood Pressure Position 02 Sat by Pulse Oximetry 97 98 Oxygen Delivery Method Room Air 05/12/25 09:30 05/12/25 10:06 05/12/25 10:30 Temperature Temperature Source Pulse Rate 54 L 54 L 56 L Pulse Rate [Right] Respiratory Rate 15 19 21 Blood Pressure 146/80 H 138/92 H 152/76 H Blood Pressure [Right Arm] Blood Pressure Mean Blood Pressure Mean [Right Arm] Blood Pressure Source Blood Pressure Source [Right Arm] Blood Pressure Position 02 Sat by Pulse Oximetry 96 96 96 Oxygen Delivery Method Room Air Room Air Room Air 05/12/25 11:35 Temperature 98.2 F Temperature Source Oral Pulse Rate 61 Pulse Rate [Right] Respiratory Rate 12 Blood Pressure 148/85 H Blood Pressure [Right Arm] Blood Pressure Mean Blood Pressure Mean [Right Arm] Blood Pressure Source Automatic Cuff Blood Pressure Source [Right Arm] Blood Pressure Position Supine 02 Sat by Pulse Oximetry Oxygen Delivery Method Room Air Lab Data Lab results reviewed: Yes I reviewed the patient's lab results. Lab Results 05/12/25 07:17: WBC 10.0, RBC 4.17 L, Hgb 12.3, Hct 37.5, MCV 89.9, MCH 29.5, MCHC 32.8, RDW 17.3, Plt Count 501 H, MPV 10.6 H, Neut % (Auto) 43.5, Lymph % (Auto) 44.9, [place] % (Auto) 8.8, Eos % (Auto) 1.8, Baso % (Auto) 0.9, Neut # (Auto) 4.4, Lymph # (Auto) 4.5, [place] # (Auto) 0.9, Eos # (Auto) 0.2, Baso # (Auto) 0.1, Sodium 139, Potassium 4.6, Chloride 108 H, Carbon Dioxide 26, Anion Gap 9.6, BUN 13, Creatinine 0.60, Estimated Creat Clear 36, Estimated GFR 95, Est GFR ( Amer) 115, Glucose 87, Calcium 9.2, Magnesium 2.1, Total Bilirubin 0.6, AST 27, ALT 9 L, Alkaline Phosphatase 70, Troponin I < 0.01, Total Protein 7.7, Albumin 4.2, Globulin 3.5 H, Albumin/Globulin Ratio 1.2, TSH 0.99, Free T4 1.15 05/12/25 10:20: Troponin I < 0.01 05/12/25 07:17 05/12/25 07:17 Orders (Tests/Meds): ORDERS Category Date Time Status CXR --portable [XR chest portable] Stat Exams 05/12/25 07:38 Completed CBC w/Auto Diff [Complete Blood Count Auto Diff] Stat Lab 05/12/25 07:17 Completed CMP [Comprehensive Metabolic Panel] Stat Lab 05/12/25 07:17 Completed Free T4 (Free Thyroxine) Stat Lab 05/12/25 07:17 Completed MAG [Magnesium] Stat Lab 05/12/25 07:17 Completed TSH [Thyroid Stimulating Hormone] Stat Lab 05/12/25 07:17 Completed Trop I [Troponin I] Stat Lab 05/12/25 07:17 Completed Troponin I Q3H Lab 05/12/25 10:20 Completed Medical Decision Narrative: Patient is an otherwise healthy 84-year-old female with recent diagnosis of atrial fibrillation on 04/20 seen in cardiology clinic on 04/27 who presented to the emergency department with concern for palpitations overnight. On arrival, patient was hemodynamically stable with unremarkable vital signs. Differential includes but not limited to: Thyroid disease, electrolyte abnormalities, dehydration, PVCs, arrhythmia, ACS/ID, pneumonia, pleural effusion, pneumothorax, amongst others. After extensive chart review, patient was recently diagnosed on 04/20 in the emergency department. Patient was sent home with Xarelto as well as metoprolol. Patient was seen in cardiology clinic on 04/27. Was found to be in normal sinus rhythm at that time. Patient was sent with a Holter monitor and patient has been seeing 3 times since then for palpitations. Patient currently has a Holter monitor in place, was worried because it was blinking red but on further investiagation it needed to be charged. Patient's EKG was reviewed and interpreted by myself and showed normal sinus rhythm at a rate of [address] or T wave changes concerning for ischemia. Patient's labs were reviewed and interpreted by myself: Patient CBC showed no leukocytosis, hemoglobin was stable. CMP unremarkable. Initial troponin less than 0.01. Thyroid studies unremarkable. X-ray was reviewed and interpreted by myself and showed no acute for consolidation, pneumothorax, pleural effusion or other acute cardiopulmonary process Patient was placed into ED observation status at 0720 pending serial troponin's. Patient's repeat troponin was less than 0.01. While in the emergency department, patient remained in normal sinus rhythm. Patient already had a Holter monitor on her to see cardiology and had an outpatient return visit already scheduled. At this time, I recommended that patient follow-up instructions to continue the Holter monitor results the patient was otherwise appropriate for outpatient management. Return precautions were discussed and patient was otherwise discharged home stable condition. Critical Care Critical Care Time Critical Care Time: No
--- NOTE | 2025-05-12 07:38 | XR_ITS ---
FINAL REPORT TECHNIQUE: Portable chest single view CLINICAL HISTORY: chest pain soa palpitations COMPARISON: 05/01/2025 FINDINGS: No acute pulmonary opacity is present. There is no evidence of effusion or pneumothorax. Mediastinum is unremarkable. Heart size is normal. IMPRESSION: No acute abnormality. Reviewed, Interpreted and Dictated by Anu Rose MD Transcribed by Teresa Da Silva Authenticated and [facility]
[2025-05-12 07:47] LABS: Hematocrit 37.5 % (37.0-47.0); Hemoglobin 12.3 g/dL (12.2-16.2); Immature Granulocytes % 0.1 %; Mean Corpuscular HGB Conc 32.8 g/dL (31.8-35.4); Mean Corpuscular Hemoglobin 29.5 pg (27.0-31.2); Mean Corpuscular Volume 89.9 fl (81-99); Nucleated Red Blood Cells % 0 %; Platelet Count 501 K/mm3 (142-424); Red Blood Count 4.17 M/mm3 (4.20-5.40); Red Cell Distribution Width-SD 57.1 fL; White Blood Count 10.0 K/mm3 (4.8-10.8)
[2025-05-12 07:52] LABS: Albumin Level 4.2 g/dl (3.5-5.0); Chloride 108 mmol/L (98-107); Potassium 4.6 mmoL/L (3.5-5.1); Sodium 139 mmol/L (136-145)
[2025-05-12 08:38] LABS: Alanine Aminotransferase 9 U/L (12-78); Albumin/Globulin Ratio 1.2 (1.1-1.8); Alkaline Phosphatase 70 U/L (38-126); Anion Gap 9.6 mEq/L (5-15); Aspartate Amino Transferase 27 U/L (14-36); Bilirubin,Total 0.6 mg/dl (0.2-1.3); Blood Urea Nitrogen 13 mg/dl (7-17); Calcium 9.2 mg/dl (8.4-10.2); Carbon Dioxide 26 mmol/L (22.0-30.0); Creatinine Clearance Estimated 36 mL/min (50-200); Creatinine,Serum 0.60 mg/dl (0.52-1.04); Estimated Glomerular Filt Rate 95 ml/min (>60); GFR (African American) 115 ML/MIN (>60); Globulin 3.5 g/dL (1.3-3.2); Glucose 87 mg/dl (74-100); Magnesium 2.1 mg/dl (1.6-2.3); Total Protein,Serum 7.7 g/dl (6.3-8.2)
[2025-05-12 09:05] LABS: Troponin I < 0.01 ng/ml (0.00-0.034)
[2025-05-12 09:11] LABS: Thyroid Stimulating Hormone 0.99 uIU/mL (0.465-4.68)
--- NOTE | 2025-05-12 10:23 | PC.NURSE ---
Collected and sent 2nd Trop to lab.
[2025-05-12 10:58] LABS: Free T4 (Free Thyroxine) 1.15 ng/dl (0.78-2.19)
[2025-05-12 11:03] LABS: Troponin I < 0.01 ng/ml (0.00-0.034)
--- NOTE | 2025-05-12 11:59 | PC.NURSE ---
reviewed with pt and her appt time and instructions for 05/16 echo & chemical stress test to being @ 12p. They were given appt reminder for cardiology appt on 05/25/25 @ 1015. Pt's has library monitor in hand and will mail back in once he is home and has the box.
== END 2025-05-12 11:49 | disposition home or self-care (01) ==
PROVIDERS: Emergency Provider Student in an Organized Health Care Education/Training Program; PCP Family Medicine
DX: R07.9 Chest pain, unspecified (principal); R00.2 Palpitations
CPT/HCPCS: 71045; 80053; 83735; 84439; 84443; 84484; 85025; 93005; 99284

== ENCOUNTER 2025-05-16 11:46 | Outpatient (CLI) | payer MEDICARE, OTHER, SELFPAY ==
--- OUTSIDE RECORDS SUMMARY | 2025-03-03 16:30 | XMS_ITS | Encounter Summary ---
Author Organization [facility] Address [address] [place] [address] Care Team Providers Care Baker Helper Name Role Phone Ameya Moreno MD Primary Care Provider + Reason for Visit * Reason Comments memory issues Encounter Details Date Type Department Care Team (Late st Contact Info) Description 03/03/2025 4:30 PM EDT Office Visit [facility] [address] [place] [address] Ameya Moreno MD [address] [place] [address] Cognitive impairment (Primary Dx); Memory [...] onset documented in this encounter Care Teams Baker Helper Relationship Specialty Start Date End Date Ameya Moreno MD [address] [place] [address] PCP - General Family Medicine 03/01/24 documented as of this encounter
--- NOTE | 2025-05-16 | CA_ITS ---
APPROVED REPORT Exam: Pharmacologic Technologist: Isabelle Ott Ht: 5 ft 1 in Wt: 105 lbs BSA: 1.44 m2 HR: 59 bpm BP: 145/68 mmHg Stress Test Details Test: Lexiscan HR Resting HR: 59 bpm Max Heart Rate (APMHR): 136 bpm Max HR Achieved: 75 bpm Target HR (85% APMHR): 116 bpm % of APMHR: 55 Recovery HR: 69 bpm BP Resting BP: 145.0/68.0 mmHg Max BP: 150.0/72.0 mmHg Recovery BP: 136.0/76.0 mmHg ECG Resting ECG: Sinus rhythm, PAC Stress ECG Conclusion Symptoms: Nausea Arrhythmias/Ectopy: PVC/PAC ST-T Changes: Less than 1.[address] changes. Conclusion: Non-diagnostic Lexiscan Electronically signed by : Carmelina Roca MD 05/17/2025 01:36:42
--- OUTSIDE RECORDS SUMMARY | 2025-05-16 11:48 | XMS_ITS | Continuity of Care Document ---
Author Name [facility] Organization [facility] Care Team Providers Care Vaccine Manager Name Role Phone [facility] Unavailable Unavailable Immunizations Combined list of available immunizations from the Department of Defense and Veterans Affairs facilities. Immunization Series Date Given Administered By Site Reaction Lot Number CVX Code Drug Manager Rn Status Comments Source zoster live 2015 FELIX SHIELDS () Not Given zoster live [facility] Social History Combined list of available smoking, tobacco, and other social history from Department of Defense and Veterans Affairs facilities. Social History Type Response Date Comment Sourc e This section is an empty social history section. [facility]
--- OUTSIDE RECORDS SUMMARY | 2025-05-16 11:49 | XMS_ITS | Encounter Summary ---
Author Organization [facility] Address [address] [place] [address] Care Team Providers Care Manager Hotel Name Role Phone Ameya Moreno MD Primary Care Provider + Encounter Details Date Type Department Care Team (Late st Contact Info) Description 04/06/2025 Results Follow-Up [facility] [address] [place] [address] Ameya Moreno MD [address] [place] [address] Social History Tobacco Use Types [...] documented in this encounter Care Teams Manager Hotel Relationship Specialty Start Date End Date Ameya Moreno MD [address] [place] [address] PCP - General Family Medicine 03/01/24 documented as of this encounter
--- OUTSIDE RECORDS SUMMARY | 2025-05-16 11:49 | XMS_ITS | Clinical Summary ---
Author Organization [facility] Address [address] [place] [address] Care Team Providers Care Test Fixture Designer Name Role Phone Ameya Moreno MD Primary Care Provider + Allergies No known active allergies Medications melatonin 5 MG tablet tablet Take 1 tablet by mouth. Active aspirin 81 MG EC tablet Take 1 tablet by mouth Daily. Active Encounters Date Type Department Care Team Description 05/09/2025 Telephone [facility] [address] [place] [phone] Ameya Moreno MD ORDERS 04/06/2025 Results Follow-Up [facility] [address] [place] [phone] Ameya Moreno MD 03/03/2025 4:30 PM EDT Office Visit [facility] [address] [place] [address] Ameya Moreno MD Cognitive impairment (Primary Dx); [...] Priority Date/Time Associated Diagnosis Comments SCANNED EKG 05/12/2025 SCANNED - LABS 05/12/2025 SCANNED - LABS 05/12/2025 SCANNED - LABS 05/12/2025 SCANNED - LABS 05/12/2025 SCANNED - IMAGING 05/12/2025 SCANNED EKG 05/01/2025 SCANNED - IMAGING 05/01/2025 SCANNED EKG 04/20/2025 SCANNED EKG 04/20/2025 SCANNED - LABS 04/20/2025 SCANNED - LABS 04/20/2025 SCANNED - LABS 04/20/2025 SCANNED - LABS 04/20/2025 SCANNED - IMAGING 04/20/2025 SCANNED - IMAGING 04/20/2025 SCANNED - LABS 04/19/2025 SCANNED - LABS 03/06/2025 SCANNED COGNITIVE ASSESSMENT 03/03/2025 from Last 3 Months Results * ECG Scan (05/12/2025) Only the most recent of4 resultswithin the time period is included. Ameya Moreno MD ECG ORDERABLES Final Re sult * IMAGING SCANNED (05/12/2025) Only the most recent of4 resultswithin the time period is included. Anatomical Region Laterality Modality Radiographic Stacy ging Ameya Moreno MD IMG DIAGNOSTIC IMAGING O RDERABLES Final Result * LABS SCANNED (05/12/2025) Only the most recent of10 resultswithin the time period is included. Ameya Moreno MD LAB BLOOD ORDERABLES Fin al Result * COGNITIVE ASSESSMENT SCAN (03/03/2025) Ameya Moreno MD NEUROLOGY ORDERABLES Fin al Result from Last 3 Months Insurance [employer] PPO Care Teams Test Fixture Designer Relationship Specialty Start Date End Date Ameya Moreno MD [address] [place] [address] PCP - General Family Medicine 03/01/24
--- OUTSIDE RECORDS SUMMARY | 2025-05-16 11:49 | XMS_ITS | Encounter Summary ---
Author Organization [facility] Address [address] [place] [id number] Care Team Providers Care Auto Parts Counter Person Name Role Phone Ameya Moreno MD Primary Care Provider + Reason for Visit * Reason Onset Date Comments ORDERS 05/09/2025 Encounter Details Date Type Department Care Team (Late st Contact Info) Description 05/09/2025 Telephone [facility] [address] [place] [address] Ameya Moreno MD [address] [place] [address] ORDERS Social History Tobacco Use [...] concerned because she received a letter from [facility] regarding these overdue/outstanding orders. I assured her there wasn't anything she needed to and that we would get everything taken care of here at the office. Clemencia and I cancelled the outstanding orders and made Dr. Moreno aware. * Telephone Encounter - Gayathri Garcia RegSched Rep - 05/09/2025 9:04 AM EDT Caller: Elise Armando Relationship: Self Best call back number: [phone] What orders are you requesting (i.e. lab or imaging): LABS FROM 03/05/25 In what timeframe would the patient need to come in: ANYTIME Where will you receive your lab/imaging services: [facility] Additional notes: PATIENT IS WANTING THE ORDERS SENT OVER TO [facility] FROM 03/05/25 documented in this encounter Plan of Treatment Not on file documented as of this encounter Visit Diagnoses Not on filedocumented in this encounter Care Teams Auto Parts Counter Person Relationship Specialty Start Date End Date Ameya Moreno MD [address] [place] [address] PCP - General Family Medicine 03/01/24 documented as of this encounter
[2025-05-16] MEDS: SODIUM CHLORIDE 0.9% 10ML SYR (RAD ONLY) 10 ML IV ×2 (12:00→13:45)
--- NOTE | 2025-05-16 12:00 | NM_ITS ---
APPROVED REPORT Exam: Nuclear Stress Test Indication: a-fib, tob use, fm hx, c.p., palpitations Patient Location: Outpatient Stress Tech: Isabelle Ott [place] Tech:AWA Herring RT (R)(N)(M) Ht: 5 ft 2 in Wt: 105 lbs Bra Size: c HR: 59 bpm BP: 145/68 mmHg BSA: 1.45 m2 TID: 0.98 BMI: 19.2 History: a-fib, tob use, fm hx, c.p., palpitations pt could not lay on stomach for prone images. Procedure: Patient received 0.4 mg of intravenous Lexiscan, resting heart rate 59 bpm, resting blood pressure 145/68 mmHg, with Lexiscan maximum heart rate achieved was 75 bpm which is % of the maximum predicted heart rate and blood pressure was 150/72 mmHg. With Lexiscan, patient denied any complaint of chest pain. Cardiac Stress and Resting SPECT Images: Cardiac Stress and Resting SPECT images were obtained using technetium 99m Myoview 30.2 mCi stress and 10.49 mCi at rest. The patient could not lie on her abdomen. Therefore prone stress imaging could not be performed. This may affect the diagnostic interpretation of the study findings. Resting and stress imaging in supine positions demonstrate no evidence of fixed or reversible perfusion defects. Gated imaging demonstrates normal global and regional LV systolic function. LVEF is calculated at 57%. Conclusion: No evidence of fixed or reversible perfusion defects. Gated imaging demonstrates normal global and regional LV systolic function. LVEF is calculated at 57%. Electronically signed by : Carmelina Roca MD 05/17/2025 01:30:06
[2025-05-16] MEDS: ISOTOPE MYOVIEW (PER STUDY) 1 DOSE IV (14:07)
--- NOTE | 2025-05-16 14:30 | CA_ITS ---
APPROVED REPORT EXAM: Comprehensive 2D, Doppler, and color-flow Echocardiogram Administrative Assistant Coordinator: Mara Davidson RT(R) Ht: 5 ft 1 in Wt: 105lbs BSA: 1.44 BP: 113/71 mmHg Indications: chest pain, palpitations, AFIB 2D Dimensions LVEF (Pastrana's) 54.20 % F: 54 - 74 LV Volume 73.20 mL F: 46 - 106 LV Volume Index 50.8 mL/m2 F: 29 - 61 EF AP4 59.30 % EF AP2 50.1 % EF BP 54.2 % GL Strain -18.3 % M-Mode Dimensions RVDd 2.91 cm (0.9-2.6) LA Diam 3.97 cm (1.9-4.0) LVDd 3.98 cm (3.5-5.7) LVDs 2.94 cm (3.5-5.7) IVSd 0.87 cm (0.6-1.1) PWd 0.80 cm (0.6-1.1) EF (Teich) 51.90% FS 26.10% EDV (Teich) 69.20 mL ESV (Teich) 33.30 mL LV Diastology E Decel Time 203 (160-240 msec) E/A Ratio 1.2 Mitral Valve MV E Max Parish. 96.0 (40-130 cm/s) MV A Velocity 82.0 (40-130 cm/s) E/A Ratio 1.17 MV PHT 60.0 ms Tricuspid Valve TR P. Velocity 285.00 cm/s Left Ventricle The left ventricle is normal size. Left ventricular systolic function is normal. The left ventricular ejection fraction is within the normal range. There is increased LV wall thickness. There is normal LV segmental wall motion. The left ventricular diastolic function is normal. LVEF is 55% Right Ventricle The right ventricle is mildly dilated. The right ventricular systolic function is normal. Atria The left atrium is mildly dilated. The right atrium is mildly dilated. There is no color Doppler evidence of interatrial shunt. Aortic Valve The aortic valve is mildly thickened. There is no hemodynamically significant aortic valvular stenosis. No aortic regurgitation is present. Mitral Valve The mitral valve is normal in structure. No evidence of mitral valve stenosis. Trace mitral regurgitation is present. Tricuspid Valve The tricuspid valve leaflets are thin and pliable. Mildtricuspid regurgitation. RVSP 30-35 mmHg. Pulmonic Valve The pulmonary valve is grossly normal in structure. Trace pulmonic valve regurgitation is present. Great Vessels The aortic root is normal in size. IVC is normal in size and collapses >50% with inspiration. Pericardium There is no pericardial effusion. Other Information Study Quality: Fair Conclusion Normal biventricular systolic function. Mild RV dilation. Mild biatrial dilation. Mild TR. Electronically signed by : Carmelina Roca MD 05/19/2025 18:46:42
== END 2025-05-16 23:59 | disposition home or self-care (01) ==
LOC: RAD 11:47
PROVIDERS: PCP Family Medicine; Visit Provider Physician Assistant
DX: I07.1 Rheumatic tricuspid insufficiency (principal); I49.1 Atrial premature depolarization; I49.3 Ventricular premature depolarization; I48.91 Unspecified atrial fibrillation; R07.89 Other chest pain; Z72.0 Tobacco use
CPT/HCPCS: 78452; 93016; 93017; 93018; 93306; A9502; J2785

== ENCOUNTER 2025-06-02 17:28 | Emergency (ER) | payer MEDICARE, OTHER, SELFPAY ==
--- OUTSIDE RECORDS SUMMARY | 2025-03-03 16:30 | XMS_ITS | Encounter Summary ---
Author Organization [facility] Address [address] [place] [address] Care Team Providers Care Library Assistant Name Role Phone Ameya Moreno MD Primary Care Provider + Reason for Visit * Reason Comments memory issues Encounter Details Date Type Department Care Team (Late st Contact Info) Description 03/03/2025 4:30 PM EDT Office Visit [facility] [address] [place] [address] Ameya Moreno MD [address] [place] [address] Cognitive impairment (Primary Dx); Memory impairment of gradual onset Social History Tobacco Use Types Packs/Day Years Used Date Smoking Tobacco: Some Days Cigarettes Passive Smoke Exposure: Current Smokeless Tobacco: Never Alcohol Use Standard Drinks/Week Comments Yes 0 (1 standard drink = 0.6 oz pur e alcohol) occasional PHQ-2 Answer Date Recorded Patient Health Questionnaire-2 Score 0 03/03/2025 Comments Unknown Sex and Gender Information Value Date Recorded Sex Assigned at Not on file Legal Sex Female 1:12 PM EDT Gender Identity Not on file Sexual Orientation Not on file documented as of this encounter Last Filed Vital Signs Vital Sign Reading Time Taken Comments Blood Pressure 110/72 03/03/2025 4:03 PM EDT Pulse - - Temperature 36.4 C (97.5 F) 03/03/2025 4:03 PM EDT Respiratory Rate 24 03/03/2025 4:03 PM EDT Oxygen Saturation - - Inhaled Oxygen Concentration - - Weight 48.4 kg (106 lb 12.8 oz) 03/03/2025 4:03 PM EDT Height 157.5 cm (5' 2 ) 03/03/2025 4:03 PM EDT Body Mass Index 19.53 03/03/2025 4:03 PM EDT documented in this encounter Functional Status documented as of this encounter Progress Notes * Castillo William MA - 03/03/2025 4:30 PM EDTAddended by: CASTILLO WILLIAM on: 05/09/2025 09:43 AM Modules accepted: Orders * Ameya Moreno MD - 03/03/2025 4:30 PM EDT Chief Complaint Patient presents with memory issues Subjective Elise Armando is a 84 y.o. who presents for concerns about forgetfulness . Patient is accompanied by her . Patient tells me during her recent visit by her daughter her daughter apparently expressed some concern about the patient's memory. It would seem the patient did not recall details of the events she had discussed in the past or the details of previous conversations. The patient's also reports patient had trouble remembering how to drive to a local venue in her hometown. Patient claims sometimes she is just not interested in the conversation that may be ongoing and therefore she does not pay attention as an explanation for why she does not recall details. Patient's denies changes in the patient's personality The following portions of the patient's history were reviewed and updated as appropriate: allergies, current medications, past family history, past medical history, past social history, past surgicalhistory, and problem list. Review of Systems Objective Vital Signs: BP 110/72 Temp 97.5 ??F (36.4 ??C) Resp 24 Ht 157.5 cm (62 ) Wt 48.4 kg (106 lb 12.8 oz) BMI 19.53 kg/m?? BMI is within normal parameters. No other follow-up for BMI required. Physical Exam Constitutional: Appearance: Normal appearance. HENT: Head: Normocephalic and atraumatic. Right Ear: Tympanic membrane and ear canal normal. Left Ear: Tympanic membrane and ear canal normal. Nose: Nose normal. Mouth/Throat: Mouth: Mucous membranes are moist. Pharynx: Oropharynx is clear. Eyes: Conjunctiva/sclera: Conjunctivae normal. Cardiovascular: Rate and Rhythm: Normal rate and regular rhythm. Heart sounds: Normal heart sounds. No murmur heard. Pulmonary: Effort: Pulmonary effort is normal. No respiratory distress. Breath sounds: Normal breath sounds. Musculoskeletal: Cervical back: Normal range of motion and neck supple. No tenderness. Lymphadenopathy: Cervical: No cervical adenopathy. Skin: General: Skin is warm and dry. Neurological: Mental Status: She is alert. Psychiatric: Mood and Affect: Mood normal. Patient had abnormal mini cog with ability to recall only 1 out of 3 words. Clock drawing was normal and patient talked her way through all of the tasks. Other brief testing was performed including naming words that begin with the letter F over the course of 60 seconds. Patient can only name 9 words. Serial sevens were also performed and patient could not accomplish. Result Review Assessment and Plan Diagnoses and all orders for this visit: 1. Cognitive impairment (Primary) - Vitamin B12; Future - CBC (No Diff); Future - Sedimentation Rate; Future - TSH Rfx On Abnormal To Free T4; Future - Folate; Future 2. Memory impairment of gradual onset - Vitamin B12; Future - CBC (No Diff); Future - Sedimentation Rate; Future - TSH Rfx On Abnormal To Free T4; Future - Folate; Future Plan: New problem with uncertain prognosis diagnosis. Patient certainly has MCI at the least and there is high suspicion for underlying dementia. Dementia related labs will be ordered. Plan to reassess in the near future with full MoCA. Follow Up No follow-ups on file. Patient was given instructions and counseling regarding her condition or for health maintenance advice. Please see specific information pulled into the AVS if appropriate. documented in this encounter Plan of Treatment Not on file documented as of this encounter Procedures Procedure Name Priority Date/Time Associated Diagnosis Comments SCANNED COGNITIVE ASSESSMENT 03/03/2025 documented in this encounter Results * COGNITIVE ASSESSMENT SCAN (03/03/2025) us Ameya Moreno MD NEUROLOGY ORDERABLES Fin al Result documented in this encounter Visit Diagnoses Diagnosis Cognitive impairment- Primary Unspecified persistent mental disorders due to conditions classified elsewhere Memory impairment of gradual onset documented in this encounter Care Teams Library Assistant Relationship Specialty Start Date End Date Ameya Moreno MD [address] [place] [address] PCP - General Family Medicine 03/01/24 documented as of this encounter
--- NOTE | 2025-06-02 17:25 | ECG_ITS ---
APPROVED REPORT Exam: Resting ECG HR:120 bpm ECG Measurements Heart Rate 120 AXES QRSd 83 QRS 78 QT 302 T 82 QTc 373 Conclusion ATRIAL FIBRILLATION WITH RAPID VENTRICULAR RESPONSE MODERATE ST DEPRESSION [0.05+ mV ST DEPRESSION] ABNORMAL ECG UNCONFIRMED REPORT Electronically signed by : Chuy Cullen, 06/02/2025 23:28:22
[2025-06-02 17:28] VITALS: BP 97/57; PULSE 120; RESP 17; TEMP 37.1; O2SAT 97; BMI 19.2
--- NOTE | 2025-06-02 17:36 | XR_ITS ---
PROCEDURE INFORMATION: Exam: XR Chest Exam date and time: 06/02/2025 5:55 PM Age: 84 years old Clinical indication: Pain; Chest pressure; Additional info: Chest pain with palpitations TECHNIQUE: Imaging protocol: Radiologic exam of the chest. Views: 1 view. Total images: 3 COMPARISON: CR XR CHEST PORTABLE 05/12/2025 7:44 AM FINDINGS: Lungs: Bilateral hyperinflation is present. Pleural spaces: No pleural effusion. No pneumothorax. Heart/Mediastinum: The heart is not enlarged. Vasculature: Tortuosity of the thoracic aorta. Mild atherosclerotic disease. Bones/joints: The thoracic spine demonstrates mild degenerative changes at multiple levels. IMPRESSION: Bilateral hyperinflation is present.
--- OUTSIDE RECORDS SUMMARY | 2025-06-02 17:39 | XMS_ITS | Encounter Summary ---
Author Organization [facility] Address [address] [place] [phone] Care Team Providers Care Continuous Improvement Black Belt Name Role Phone Ameya Moreno MD Primary Care Provider + Reason for Visit * Reason Onset Date Comments ORDERS 05/09/2025 Encounter Details Date Type Department Care Team (Late st Contact Info) Description 05/09/2025 Telephone [facility] [address] [place] [address] Ameya Moreno MD [address] [place] [address] ORDERS Social History Tobacco Use [...] concerned because she received a letter from [facility] regarding these overdue/outstanding orders. I assured her there wasn't anything she needed to and that we would get everything taken care of here at the office. Clemencia and I cancelled the outstanding orders and made Dr. Moreno aware. * Telephone Encounter - Gayathri Garcia RegSched Rep - 05/09/2025 9:04 AM EDT Caller: Elise Armando Relationship: Self Best call back number: [phone] What orders are you requesting (i.e. lab or imaging): LABS FROM 03/05/25 In what timeframe would the patient need to come in: ANYTIME Where will you receive your lab/imaging services: [facility] Additional notes: PATIENT IS WANTING THE ORDERS SENT OVER TO [facility] FROM 03/05/25 documented in this encounter Plan of Treatment Not on file documented as of this encounter Visit Diagnoses Not on filedocumented in this encounter Care Teams Continuous Improvement Black Belt Relationship Specialty Start Date End Date Ameya Moreno MD [address] [place] [address] PCP - General Family Medicine 03/01/24 documented as of this encounter
--- OUTSIDE RECORDS SUMMARY | 2025-06-02 17:40 | XMS_ITS | Encounter Summary ---
Author Organization [facility] Address [address] [place] [address] Care Team Providers Care State Epidemiologist Name Role Phone Ameya Moreno MD Primary Care Provider + Encounter Details Date Type Department Care Team (Late st Contact Info) Description 04/06/2025 Results Follow-Up [facility] [address] [place] [address] Ameya Moreno MD [address] [place] [address] Social History Tobacco Use Types [...] onset documented in this encounter Care Teams State Epidemiologist Relationship Specialty Start Date End Date Ameya Moreno MD [address] [place] [address] PCP - General Family Medicine 03/01/24 documented as of this encounter
--- OUTSIDE RECORDS SUMMARY | 2025-06-02 17:40 | XMS_ITS | Clinical Summary ---
Author Organization [facility] Address [address] [place] [address] Care Team Providers Care Accounting Recruiter Name Role Phone Ameya Moreno MD Primary Care Provider + Allergies No known active allergies Medications melatonin 5 MG tablet tablet Take 1 tablet by mouth. Active aspirin 81 MG EC tablet Take 1 tablet by mouth Daily. Active Encounters Date Type Department Care Team Description 05/09/2025 Telephone [facility] [address] [id number] Ameya Moreno MD ORDERS 04/06/2025 Results Follow-Up [facility] [address] [phone] Ameya Moreno MD 03/03/2025 4:30 PM EDT Office Visit [facility] [address] [place] [address] Ameya Moreno MD Cognitive impairment (Primary Dx); [...] VISIT 01/28/2022 COVID-19 Vaccine (2023-2 5 season) 2025 06/03/2024, 07/08/2023, 06/25/2022, Additional history exists INFLUENZA [...] Insurance [employer] PPO Care Teams Accounting Recruiter Relationship Specialty Start Date End Date Ameya Moreno MD [address] [address] PCP - General Family Medicine 03/01/24
[2025-06-02 17:50] LABS: Hematocrit 38.3 % (37.0-47.0); Hemoglobin 12.9 g/dL (12.2-16.2); Immature Granulocytes % 0.2 %; Mean Corpuscular HGB Conc 33.7 g/dL (31.8-35.4); Mean Corpuscular Hemoglobin 30.1 pg (27.0-31.2); Mean Corpuscular Volume 89.3 fl (81-99); Nucleated Red Blood Cells % 0 %; Platelet Count 516 K/mm3 (142-424); Red Blood Count 4.29 M/mm3 (4.20-5.40); Red Cell Distribution Width-SD 54.4 fL; White Blood Count 9.4 K/mm3 (4.8-10.8)
--- NOTE | 2025-06-02 17:50 | HMH.EDGENADL ---
Discharge Plan Disposition Patient Disposition: Home, Self-Care Prescriptions Prescriptions: No Action metoprolol tartrate 25 mg tablet 12.5 mg PO BID 90 Days Qty: 90 3RF Xarelto 20 mg tablet 20 mg PO HS Qty: 90 3RF Rx Instructions: take with a meal every evening Referrals Follow up/Referrals: Duong Flores MD [Staff Physician, Cardiology] - See instructions Provider,Referral, [Referring, Medical] - See instructions Activity Restrictions/Add. Instructions Additional Instructions/Restrictions: You are given an additional dose of IV metoprolol today your heart rate was well-controlled in the 80s he remained in atrial fibrillation please increase your dose of metoprolol from 12-1/2 mg twice a day to 25 mg twice a day please follow-up closely early next week with Dr. Flores's clinic return with any worsening of your symptoms. Clinical Impressions Clinical Impression: Atrial fibrillation with RVR Print Language Print Language: Upper Sorbian Discharge ED Provider: Yesica Cullen General Adult HPI General Chief complaint: Chest Pain Stated complaint: palpitation Time Seen by Provider: 06/02/25 17:34 Mode of Arrival: Ambulatory Source of Information: Patient Description of Symptoms (Recalled from ER Triage Doc. by RN): pt to the ED with generalized chest pain and heart palpitations x 1.5 hours. pt has a history of afib in the past. History of Present Illness HPI narrative: Patient is an 84-year-old with paroxysmal atrial fibrillation who was recently started on Xarelto and beta-lizbeth presents today with recurrent palpitations. Has been coming and going in sinus rhythm no chest pain no changes in other symptoms such as nausea vomiting etc. Chest is feeling palpitations. Related Data Previous Rx's ?Medication ?Instructions ?Recorded metoprolol tartrate 25 mg tablet 12.5 mg (1/2 x 25 mg) PO BID 90 05/25/25 days #90 tabs rivaroxaban 20 mg tablet (Xarelto) 20 mg PO HS #90 tabs 05/25/25 Allergies Allergy/AdvReac Type Severity Reaction Status Date / Time No Known Allergies Allergy Verified 05/25/25 10:17 [facility] Disclaimer: The information contained in this section may have been updated after the patient was seen, as this information can be updated by other users. Medical History (Updated 06/02/25 @ 17:44 by Yesica Cullen MD) SVT (supraventricular tachycardia) Other chest pain Family History Other No significant family history Social History Smoking Status: Never smoker alcohol intake: former substance use type: denies use current occupational status: employed Travel in the last 8 weeks?: Inside the [place] Have you lived/traveled outside US in past 30 days?: No Contact w/someone who lives/traveled outside US past 30 days?: No Exposure to someone with infectious disease in past 14 days?: No Do you have a fever (greater than 100.4 F or 38 C)?: No Have you tested positive for COVID-19?: No Exposed to someone with COVID-19 in past 14 days?: No Do you have a sore throat?: No Do you have a cough?: No Do you have any weakness?: No Do you have any diarrhea?: No Are you experiencing any unusual bleeding?: No Do you have any muscle aches/pain?: No Do you have any abdominal pain?: No Are you experiencing loss of taste or smell?: No Other Medical History Have you received the Pneumonia Vaccine: Yes ROS Obtained: Yes All systems reviewed & no additional complaints except as documented Physical Exam General General appearance: alert and in no apparent distress Respiratory Respiratory exam: Present normal lung sounds bilaterally Cardiovascular Cardiovascular exam: Present tachycardia and irregular rhythm Neurological Exam Neurological exam: Present alert and oriented X3 Medical Decision Making Medical Records Screening: Per USPSTF and CDC recommendations, given the prevalence of disease in our region, it is our hospital?s policy to screen for HIV and viral Hepatitis for all patients aged 18 and over and those with ongoing risk factors. Jan Inquiry Pt receiving controlled substance: No Vital Signs: 06/02/25 17:28 06/02/25 17:55 06/02/25 17:58 Temperature 98.7 F Temperature Source Oral Pulse Rate 119 H 101 H Pulse Rate [Left Radial] 120 H Respiratory Rate 17 22 Blood Pressure 115/69 Blood Pressure [Right Arm] 97/57 L Blood Pressure Mean [Right Arm] 70 Blood Pressure Source [Right Arm] Automatic Cuff Blood Pressure Position [Right Arm] Sitting 02 Sat by Pulse Oximetry 97 93 L Oxygen Delivery Method Room Air 06/02/25 18:00 06/02/25 18:30 Temperature Temperature Source Pulse Rate 73 60 Pulse Rate [Left Radial] Respiratory Rate 18 19 Blood Pressure 96/62 L 93/59 L Blood Pressure [Right Arm] Blood Pressure Mean [Right Arm] Blood Pressure Source [Right Arm] Blood Pressure Position [Right Arm] 02 Sat by Pulse Oximetry 95 95 Oxygen Delivery Method Lab Data Lab results reviewed: Yes I reviewed the patient's lab results. Lab Results 06/02/25 17:35: WBC 9.4, RBC 4.29, Hgb 12.9, Hct 38.3, MCV 89.3, MCH 30.1, MCHC 33.7, RDW 16.7, Plt Count 516 H, MPV 10.1, Neut % (Auto) 45.3, Lymph % (Auto) 43.6, [place] % (Auto) 8.6, Eos % (Auto) 1.6, Baso % (Auto) 0.7, Neut # (Auto) 4.3, Lymph # (Auto) 4.1, [place] # (Auto) 0.8, Eos # (Auto) 0.2, Baso # (Auto) 0.1, Sodium 143, Potassium 3.9, Chloride 111 H, Carbon Dioxide 24, Anion Gap 11.9, BUN 8, Creatinine 0.80, Estimated Creat Clear 31, Estimated GFR 68, Est GFR ( Amer) 83, Glucose 100, Calcium 9.5, Magnesium 1.9, Total Bilirubin 0.5, AST 29, ALT 12, Alkaline Phosphatase 79, Troponin I < 0.01, Total Protein 8.0, Albumin 4.2, Globulin 3.8 H, Albumin/Globulin Ratio 1.1 06/02/25 17:35 06/02/25 17:35 Orders (Tests/Meds): ED MEDICATIONS Discontinued Medications Generic Name Dose Route Start Last Admin Trade Name Freq PRN Reason Stop Dose Admin Metoprolol Tartrate 5 mg 06/02/25 17:43 06/02/25 17:52 Metoprolol Tartrate 5mg/5ml Vial IV 06/02/25 17:44 5 mg ONCE ONE Administration ORDERS Category Date Time Status XR chest portable Stat Exams 06/02/25 17:36 Completed Complete Blood Count Auto Diff Stat Lab 06/02/25 17:35 Completed Comprehensive Metabolic Panel Stat Lab 06/02/25 17:35 Completed Magnesium Stat Lab 06/02/25 17:35 Results TSH [Thyroid Stimulating Hormone] Stat Lab 06/02/25 17:35 Results Troponin I Q3H Lab 06/02/25 20:45 Ordered Troponin I Q3H Lab 06/02/25 23:45 Ordered Troponin I Stat Lab 06/02/25 17:35 Completed ECG Data Tracing #1: I reviewed this ECG and interpreted as documented below: Ventricular rate of 120 A-fib with RVR no acute ischemic changes noted normal axis Medical Decision Narrative: Well-appearing 84-year-old female presenting today with recurrent A-fib RVR with a history of paroxysmal atrial fibrillation already anticoagulated on Xarelto and metoprolol. She is minimally symptomatic will not cardiovert her at the moment. Will give her IV metoprolol and reassess. She would like to not be admitted in the hospital she is on metoprolol 12-1/2 mg p.o. twice daily we will increase that to 25 twice daily similar and get her rate controlled today. Will check electrolytes etc. and optimize her for discharge. Unlikely that she will need to be admitted. Reassessment 652 patient's heart rates been in the 80s to 90s she states she feels better labs unremarkable no evidence of any ischemia. We will double her dose of metoprolol she is on half a cap of 25 mg twice a day or 12-1/2 mg twice a day we will increase that to 25 mg twice a day. She will follow-up closely with cardiology. She remained stable in the emergency department. Critical Care Critical Care Time Critical Care Time: Yes Attestation: On 06/02/25, the high probability of a clinically significant, sudden or life threatening deterioration of the following system(s) required my full and direct attention, intervention and personal management. The time I documented below is in addition to time spent performing reported procedures but includes the following listed in this critical care notation. Total Time Total Critical Care Time: 35
[2025-06-02] MEDS: METOPROLOL TARTRATE 5MG/5ML VIAL 5 MG IV (17:52)
--- NOTE | 2025-06-02 17:54 | PC.NURSE ---
portable chest xray at bedside
[2025-06-02 17:55] VITALS: PULSE 119
[2025-06-02 17:58] VITALS: BP 115/69; PULSE 101; RESP 22; O2SAT 93
[2025-06-02 18:00] VITALS: BP 96/62; PULSE 73; RESP 18; O2SAT 95
[2025-06-02 18:03] LABS: Albumin Level 4.2 g/dl (3.5-5.0); Chloride 111 mmol/L (98-107); Potassium 3.9 mmoL/L (3.5-5.1); Sodium 143 mmol/L (136-145)
[2025-06-02 18:05] LABS: Blood Urea Nitrogen 8 mg/dl (7-17); Creatinine Clearance Estimated 31 mL/min (50-200); Creatinine,Serum 0.80 mg/dl (0.52-1.04); Estimated Glomerular Filt Rate 68 ml/min (>60); GFR (African American) 83 ML/MIN (>60)
[2025-06-02 18:06] LABS: Alanine Aminotransferase 12 U/L (12-78); Albumin/Globulin Ratio 1.1 (1.1-1.8); Alkaline Phosphatase 79 U/L (38-126); Anion Gap 11.9 mEq/L (5-15); Aspartate Amino Transferase 29 U/L (14-36); Bilirubin,Total 0.5 mg/dl (0.2-1.3); Calcium 9.5 mg/dl (8.4-10.2); Carbon Dioxide 24 mmol/L (22.0-30.0); Globulin 3.8 g/dL (1.3-3.2); Glucose 100 mg/dl (74-100); Total Protein,Serum 8.0 g/dl (6.3-8.2)
[2025-06-02 18:13] LABS: Magnesium 1.9 mg/dl (1.6-2.3)
[2025-06-02 18:23] LABS: Troponin I < 0.01 ng/ml (0.00-0.034)
[2025-06-02 18:30] VITALS: BP 93/59; PULSE 60; RESP 19; O2SAT 95
[2025-06-02 18:44] LABS: Thyroid Stimulating Hormone 0.96 uIU/mL (0.465-4.68)
[2025-06-02 18:54] VITALS: BP 98/62; PULSE 100; RESP 16; TEMP 36.8; O2SAT 95
== END 2025-06-02 18:55 | disposition home or self-care (01) ==
PROVIDERS: Emergency Provider Student in an Organized Health Care Education/Training Program; PCP Family Medicine
DX: I48.91 Unspecified atrial fibrillation (principal); Z79.01 Long term (current) use of anticoagulants
CPT/HCPCS: 71045; 80053; 83735; 84443; 84484; 85025; 93005; 96374; 99284

== ENCOUNTER 2025-06-11 03:20 | Emergency (ER) | payer MEDICARE, OTHER, SELFPAY ==
--- OUTSIDE RECORDS SUMMARY | 2025-03-03 16:30 | XMS_ITS | Encounter Summary ---
Author Organization [facility] Address [address] [place] [address] Care Team Providers Care Piping Design Specialist Name Role Phone Ameya Moreno MD Primary Care Provider + Reason for Visit * Reason Comments memory issues Encounter Details Date Type Department Care Team (Late st Contact Info) Description 03/03/2025 4:30 PM EDT Office Visit [facility] [address] [place] [address] Ameya Moreno MD [address] [place] [address] Cognitive impairment (Primary Dx); Memory [...] onset documented in this encounter Care Teams Piping Design Specialist Relationship Specialty Start Date End Date Ameya Mroeno MD [address] [place] [address] PCP - General Family Medicine 03/01/24 documented as of this encounter
--- NOTE | 2025-06-11 | ECG_ITS ---
APPROVED REPORT Exam: Resting ECG HR:59 bpm ECG Measurements Heart Rate 59 AXES RI 189 P 70 QRSd 90 QRS 62 QT 423 T 77 QTc 423 Conclusion SINUS BRADYCARDIA WITH OCCASIONAL SUPRAVENTRICULAR PREMATURE COMPLEXES BORDERLINE ECG No STEMI Electronically signed by : WILLIAM SULLIVAN, 06/11/2025 23:11:11
--- NOTE | 2025-06-11 03:17 | ECG_ITS ---
APPROVED REPORT Exam: Resting ECG HR:58 bpm ECG Measurements Heart Rate 58 AXES OH 191 P 76 QRSd 88 QRS 67 QT 420 T 75 QTc 416 Conclusion SINUS BRADYCARDIA BORDERLINE ECG No STEMI Electronically signed by : WILLIAM SULLIVAN, 06/11/2025 23:10:54
[2025-06-11 03:21] VITALS: BMI 19.8
--- NOTE | 2025-06-11 03:21 | XR_ITS ---
PROCEDURE INFORMATION: Exam: XR Chest Exam date and time: 06/11/2025 3:15 AM Age: 84 years old Clinical indication: Pain; Shortness of breath and other: Dizziness; Chest pressure; Additional info: Chest pain TECHNIQUE: Imaging protocol: Radiologic exam of the chest. Views: 2 views. COMPARISON: CR XR CHEST PORTABLE 06/02/2025 5:55 PM FINDINGS: Lungs: Mild hyperinflation. Chronic interstitial changes. No focal infiltrates. Pleural spaces: Unremarkable. No pleural effusion. No pneumothorax. Heart/Mediastinum: Unremarkable. No cardiomegaly. Bones/joints: Unremarkable. IMPRESSION: Mild hyperinflation. Chronic interstitial changes. No focal infiltrates.
--- NOTE | 2025-06-11 03:23 | ED_ITS ---
Discharge Plan Disposition Patient Disposition: Home, Self-Care Condition: Good Prescriptions Prescriptions: No Action Xarelto 20 mg tablet 20 mg PO HS Qty: 90 3RF Rx Instructions: take with a meal every evening diltiazem HCl [Cardizem CD] 240 mg capsule,extended release 24hr 240 mg PO DAILY Qty: 30 5RF Referrals Follow up/Referrals: Ameya Moreno MD [Primary Care Provider, Medical] - See instructions Activity Restrictions/Add. Instructions Additional Instructions/Restrictions: You were evaluated in the ER and are believed to be appropriate for discharge at this time. Continue taking your home medications as previously prescribed. Follow-up with cardiology Thursday06/13/2025 at 9 AM as discussed. Return to the ER with any new, worsening, or otherwise concerning symptoms. Clinical Impressions Clinical Impression: Heart palpitations Print Language Print Language: Iranian Discharge ED Provider: Josef Garcia General Chief Complaint: Chest Pain Stated Complaint: Chest Pain Time Seen by Provider: 06/11/25 03:21 History of Present Illness HPI narrative: 84-year-old female presents to the ER complaining of sensation of palpitations and chest discomfort that woke her up from sleep about 1 hour ago. She has a history of paroxysmal A-fib and SVT. No chest pain or pressure at this time. Patient is currently asymptomatic. Patient reports recent history of problems like this and they are adjusting her medications but she feels like nothing has truly fixed the problem. She states symptoms like this scared her. No headache, dizziness, numbness, tingling, weakness, nausea, vomiting, diarrhea, no fevers or chills, no other associated symptoms. Related Data Previous Rx's ?Medication ?Instructions ?Recorded rivaroxaban 20 mg tablet (Xarelto) 20 mg PO HS #90 tab s 06/05/25 diltiazem HCl 240 mg 240 mg PO DAILY #30 caps 06/22 capsule,extended release 24 hr (Cardizem CD) Allergies Allergy/AdvReac Type Severity Reaction Status Date / Time No Known Allergies Allergy Verified 06/07/25 10:30 [facility] Disclaimer: The information contained in this section may have been updated after the patient was seen, as this information can be updated by other users. Medical History SVT (supraventricular tachycardia) Other chest pain Family History Other No significant family history Social History Smoking Status: Never smoker alcohol intake: former substance use type: denies use current occupational status: employed Travel in the last 8 weeks?: Inside the [place] Have you lived/traveled outside US in past 30 days?: No Contact w/someone who lives/traveled outside US past 30 days?: No Exposure to someone with infectious disease in past 14 days?: No Do you have a fever (greater than 100.4 F or 38 C)?: No Have you tested positive for COVID-19?: No Exposed to someone with COVID-19 in past 14 days?: No Do you have a sore throat?: No Do you have a cough?: No Do you have any weakness?: No Do you have any diarrhea?: No Are you experiencing any unusual bleeding?: No Do you have any muscle aches/pain?: No Do you have any abdominal pain?: No Are you experiencing loss of taste or smell?: No Other Medical History Have you received the Pneumonia Vaccine: Yes ROS Obtained: Yes Systems reviewed as appropriate & no additional complaints except as documented per HPI Physical Exam General General appearance: alert and in no apparent distress Head Head exam: atraumatic and normocephalic Eye Eye exam: Present PERRL and EOMI ENT ENT exam: Present mucous membranes moist Neck Neck exam: Present normal inspection and full ROM Chest Chest inspection: Present symmetric chest wall rise Respiratory Respiratory exam: Present normal lung sounds bilaterally; Absent respiratory distress, wheezes or stridor Cardiovascular Cardiovascular exam: Present regular rate and normal rhythm Abdominal Exam Abdominal exam: Present soft; Absent distention or tenderness Extremities Exam Extremities exam: Present full ROM; Absent edema Neurological Exam Neurological exam: Present alert and oriented X3; Absent motor sensory deficit Psychiatric Psychiatric exam: Present normal affect and normal mood Skin Skin exam: Present warm and dry HEART Score HEART Score HEART Score assessment performed?: Yes History (anamnesis): Slightly suspicious ECG: Non-specific disturbance Age: >65 years Risk factors: 1-2 risk factors Troponin: </= normal limit HEART Score: 4 Critical Care Critical Care Time Critical Care Time: No Medical Decision Making Medical Records Medical records reviewed: Yes I reviewed the patient's medical records. MR Comment: Most recent cardiology notes reviewed demonstrating in April she had a 2-week event monitor with 2 runs of SVT, no A-fib, she also had Lexiscan Myoview with no perfusion defects, normal global and regional systolic function, LVEF 57%, mild TR on echo, mild biatrial dilation, mild RV dilation. She was treated in the ER on 06/06/2025 for A-fib RVR and was converted. She was thought to have BPPV and recommended to see physical therapy by cardiology. Jan Inquiry Pt receiving controlled substance: No Vital Signs Vital Signs: 06/11/25 03:25 06/11/25 03:42 06/11/25 03:46 Temperature 98.4 F 98.5 F Temperature Source Oral Oral Pulse Rate 53 L 54 L Pulse Rate [Right] 60 Respiratory Rate 18 13 Blood Pressure 133/66 Blood Pressure [Right Arm] 142/71 H Blood Pressure Mean [Right Arm] 94 02 Sat by Pulse Oximetry 96 96 Oxygen Delivery Method Room Air Room Air Lab Data Labs: Lab Results 06/11/25 03:22: WBC 9.4, RBC 4.44, Hgb 13.1, Hct 40.3, MCV 90.8, MCH 29.5, MCHC 32.5, RDW 16.7, Plt Count 499 H, MPV 10.1, Neut % (Auto) 40.5, Lymph % (Auto) 47.6, Morgan % (Auto) 8.8, Eos % (Auto) 2.2, Baso % (Auto) 0.7, Neut # (Auto) 3.8, Lymph # (Auto) 4.5, Morgan # (Auto) 0.8, Eos # (Auto) 0.2, Baso # (Auto) 0.1, PT 14.8 H, INR 1.36 H, D-Dimer 0.65 H, Sodium 141, Potassium 4.0, Chloride 106, Carbon Dioxide 26, Anion Gap 13.0, BUN 11, Creatinine 0.70, Estimated Creat Clear 31, Estimated GFR 80, Est GFR ( Amer) 96, Glucose 99, Calcium 9.6, Total Bilirubin 0.8, AST 24, ALT 10 L, Alkaline Phosphatase 76, Troponin I < 0.01, NT-Pro-B Natriuret Pep 126, Total Protein 8.1, Albumin 4.4, Globulin 3.7 H , Albumin/Globulin Ratio 1.2 06/11/25 03:22 06/11/25 03:22 Response Orders (Tests/Meds): ED MEDICATIONS Generic Name Dose Route Start Last Admin Trade Name Trisha PRN Reason Stop Dose Admin Nitroglycerin 0.4 mg 06/11/25 03:21 Nitroglycerin 0.4mg Sl Tablet SL 06/12/25 03:21 [id number] PRN Chest Pain Discontinued Medications Generic Name Dose Route Start Last Admin Trade Name Frehoang PRN Reason Stop Dose Admin Aspirin 324 mg 06/11/25 03:21 06/11/25 03:30 Aspirin 81mg Chewable Tablet PO 06/11/25 03:22 324 mg ONCE ONE Administration ORDERS Category Date Time Status XR chest 2V Stat Exams 06/11/25 03:21 Taken Complete Blood Count Auto Diff Stat Lab 06/11/25 03:22 Completed Comprehensive Metabolic Panel Stat Lab 06/11/25 03:22 Completed D-Dimer Stat Lab 06/11/25 03:22 Completed NT Pro Brain Natriuretic Pep. Stat Lab 06/11/25 03:22 Completed Prothrombin Time INR Stat Lab 06/11/25 03:22 Completed Troponin I Q3H Lab 06/11/25 06:30 Ordered Troponin I Q3H Lab 06/11/25 09:30 Ordered Troponin I Stat Lab 06/11/25 03:22 Completed MDM Narrative Medical Decision Narrative: In summary, this 84-year-old female with comorbidities as described in the HPI presents to the emergency department today with palpitations. On initial evaluation patient is hemodynamically stable, afebrile, overall well-appearing, currently not having any symptoms, benign cardiopulmonary exam, overall very reassuring exam with no focal abnormalities. Differential diagnosis includes but is not limited to A-fib, SVT, other palpitations or arrhythmia, also considered the possibility of ACS or PE though I have very low suspicions for these, electrolyte abnormality, dehydration, among others. Based on these concerns, I ordered hematologic and serum labs, cardiac workup, chest x-ray, D-dimer. ECG personally interpreted demonstrates sinus bradycardia, rate 58, normal axis, normal AR and QTc, no STEMI, repeat ECG sinus bradycardia with occasional PAC, rate 59, normal axis, normal AR and QTc, no STEMI. Patient received aspirin for treatment. Labs personally reviewed demonstrate no leukocytosis or anemia, thrombocythemia improved from previous, PT/INR normal, CMP nonactionable, undetectable troponin offers significant reassurance in the setting of sensation of palpitations and no chest pain at this time. XR personally interpreted demonstrates no acute thoracic abnormality, see radiology read for final interpretation. D-dimer 0.65, by years criteria PE is excluded. I had shared decision making discussion with this patient regarding repeat troponin. She presented approximately 1 to 2 hours after her initial symptoms and has negative troponin with unremarkable workup otherwise and is asymptomatic. She has been evaluated multiple times for these identical symptoms and they have been related to her paroxysmal A-fib and she states her symptoms were identical to these previous episodes. After discussion with the patient she would prefer to be discharged with outpatient follow-up on Thursday morning at 9 AM with the cardiology office rather than stay for the second troponin at this time. She understands risks and benefits. She is going to follow-up closely with cardiology and continue following with physical therapy for her inner ear problems. Patient was given instructions on symptomatic management, follow up instructions, and return precautions for the emergency department. Patient and at bedside indicated understanding and was discharged in stable condition.
[2025-06-11 03:25] VITALS: BP 142/71; PULSE 60; RESP 18; TEMP 36.9; O2SAT 96; BMI 19.8
[2025-06-11] MEDS: ASPIRIN 81MG CHEWABLE TABLET 324 MG PO (03:30)
[2025-06-11 03:36] LABS: Hematocrit 40.3 % (37.0-47.0); Hemoglobin 13.1 g/dL (12.2-16.2); Immature Granulocytes % 0.2 %; Mean Corpuscular HGB Conc 32.5 g/dL (31.8-35.4); Mean Corpuscular Hemoglobin 29.5 pg (27.0-31.2); Mean Corpuscular Volume 90.8 fl (81-99); Nucleated Red Blood Cells % 0 %; Platelet Count 499 K/mm3 (142-424); Red Blood Count 4.44 M/mm3 (4.20-5.40); Red Cell Distribution Width-SD 55.7 fL; White Blood Count 9.4 K/mm3 (4.8-10.8)
--- OUTSIDE RECORDS SUMMARY | 2025-06-11 03:38 | XMS_ITS | Encounter Summary ---
Author Organization [facility] Address [address] [place] [id number] Care Team Providers Care Glass Processing Worker Name Role Phone Ameya Moreno MD Primary Care Provider + Reason for Visit * Reason Onset Date Comments ORDERS 05/09/2025 Encounter Details Date Type Department Care Team (Late st Contact Info) Description 05/09/2025 Telephone [facility] MED[facility]INE [address] [place] [address] Ameya Moreno MD [address] [place] [address] ORDERS Social History Tobacco Use [...] concerned because she received a letter from [facility] regarding these overdue/outstanding orders. I assured her there wasn't anything she needed to and that we would get everything taken care of here at the office. Clemencia and I cancelled the outstanding orders and made Dr. Moreno aware. * Telephone Encounter - Gayathri Garcia RegSched Rep - 05/09/2025 9:04 AM EDT Caller: Elise Armando Relationship: Self Best call back number: [phone] What orders are you requesting (i.e. lab or imaging): LABS FROM 03/05/25 In what timeframe would the patient need to come in: ANYTIME Where will you receive your lab/imaging services: [facility] Additional notes: PATIENT IS WANTING THE ORDERS SENT OVER TO [facility] FROM 03/05/25 documented in this encounter Plan of Treatment Not on file documented as of this encounter Visit Diagnoses Not on filedocumented in this encounter Care Teams Glass Processing Worker Relationship Specialty Start Date End Date Ameya Moreno MD [address] [place] [address] PCP - General Family Medicine 03/01/24 documented as of this encounter
--- OUTSIDE RECORDS SUMMARY | 2025-06-11 03:38 | XMS_ITS | Clinical Summary ---
Author Organization [facility] Address [address] [place] [address] Care Team Providers Care Mixer Operator Helper Hot Metal Name Role Phone Ameya Moreno MD Primary Care Provider + Allergies No known active allergies Medications melatonin 5 MG tablet tablet Take 1 tablet by mouth. Active aspirin 81 MG EC tablet Take 1 tablet by mouth Daily. Active Encounters Date Type Department Care Team Description 05/09/2025 Telephone [facility] MEDICINE [address] [place] [address] Ameya Moreno MD ORDERS 04/06/2025 Results Follow-Up [facility]INE [address] [place] [address] Ameya Moreno MD from Last 3 Months Immunizations Immunization Administration [...] 01/28/2022 COVID-19 Vaccine (8 2023-2 5 season) 2025 06/03/2024, 07/08/2023, 06/25/2022, Additional history exists INFLUENZA VACCINE 06/28/2025 07/08/2024, , 07/15/2022, Additional history exists RSV Vaccine - Adults Completed 07/15/2023 Procedures Procedure Name Priority Date/Time Associated Diagnosis Comments SCANNED EKG 06/02/2025 SCANNED - IMAGING 06/02/2025 SCANNED EKG 05/12/2025 SCANNED - LABS 05/12/2025 [...] - IMAGING 04/20/2025 SCANNED - LABS 04/19/2025 from Last 3 Months Results * ECG Scan (06/02/2025) Only the most recent of5 resultswithin the time period is included. Ameya Moreno MD ECG ORDERABLES Final Re sult * IMAGING SCANNED (06/02/2025) Only the most recent of5 resultswithin the time period is included. Anatomical Region Laterality Modality Radiographic Stacy ging Ameya Moreno MD IMG DIAGNOSTIC IMAGING O RDERABLES Final Result * LABS SCANNED (05/12/2025) Only the most recent of9 resultswithin the time period is included. Ameya Moreno MD LAB BLOOD ORDERABLES Fin al Result from Last 3 Months Insurance [employer] PPO Care Teams Mixer Operator Helper Hot Metal Relationship Specialty Start Date End Date Ameya Moreno MD [address] [place] [address] PCP - General Family Medicine 03/01/24
[2025-06-11 03:42] VITALS: PULSE 53
[2025-06-11 03:43] LABS: Albumin Level 4.4 g/dl (3.5-5.0); Chloride 106 mmol/L (98-107); Potassium 4.0 mmoL/L (3.5-5.1); Sodium 141 mmol/L (136-145)
[2025-06-11 03:46] VITALS: BP 133/66; PULSE 54; RESP 13; TEMP 36.9; O2SAT 96
[2025-06-11 03:46] LABS: Alanine Aminotransferase 10 U/L (12-78); Albumin/Globulin Ratio 1.2 (1.1-1.8); Alkaline Phosphatase 76 U/L (38-126); Anion Gap 13.0 mEq/L (5-15); Aspartate Amino Transferase 24 U/L (14-36); Bilirubin,Total 0.8 mg/dl (0.2-1.3); Blood Urea Nitrogen 11 mg/dl (7-17); Carbon Dioxide 26 mmol/L (22.0-30.0); Creatinine Clearance Estimated 31 mL/min (50-200); Creatinine,Serum 0.70 mg/dl (0.52-1.04); Estimated Glomerular Filt Rate 80 ml/min (>60); GFR (African American) 96 ML/MIN (>60); Globulin 3.7 g/dL (1.3-3.2); INR 1.36 (0.9-1.1); Prothrombin Time 14.8 seconds (10.1-12.5); Total Protein,Serum 8.1 g/dl (6.3-8.2)
[2025-06-11 03:47] LABS: Calcium 9.6 mg/dl (8.4-10.2); Glucose 99 mg/dl (74-100)
[2025-06-11 03:57] LABS: NT Pro Brain Natriuretic Pep. 126 pg/mL (0-450)
[2025-06-11 04:00] LABS: Troponin I < 0.01 ng/ml (0.00-0.034)
[2025-06-11 04:27] LABS: D-Dimer 0.65 ug/mL (0.0-0.5)
[2025-06-11 04:53] VITALS: BP 127/69; PULSE 54; RESP 17; TEMP 36.8; O2SAT 96
== END 2025-06-11 04:53 | disposition home or self-care (01) ==
PROVIDERS: Emergency Provider Emergency Medicine; PCP Family Medicine
DX: R00.2 Palpitations (principal)
CPT/HCPCS: 71046; 80053; 83880; 84484; 85025; 85378; 85610; 93005; 99285

== ENCOUNTER 2025-06-13 09:28 | Outpatient (CLI) | payer MEDICARE, OTHER, SELFPAY ==
--- OUTSIDE RECORDS SUMMARY | 2025-03-03 16:30 | XMS_ITS | Encounter Summary ---
Author Organization [facility] Address [address] [place] [address] Care Team Providers Care Director Of Restaurants Name Role Phone Ameya Moreno MD Primary Care Provider + Reason for Visit * Reason Comments memory issues Encounter Details Date Type Department Care Team (Late st Contact Info) Description 03/03/2025 4:30 PM EDT Office Visit [facility] [address] [place] [address] Ameya Moreno MD [address] [place] [address] Cognitive impairment (Primary Dx); Memory [...] onset documented in this encounter Care Teams Director Of Restaurants Relationship Specialty Start Date End Date Ameya Moreno MD [address] [place] [address] PCP - General Family Medicine 03/01/24 documented as of this encounter
--- OUTSIDE RECORDS SUMMARY | 2025-06-13 10:00 | XMS_ITS | Encounter Summary ---
Author Organization [facility] Address [address] [place] [id number] Care Team Providers Care Electric Motor Assembler Name Role Phone Ameya Moreno MD Primary Care Provider + Reason for Visit * Reason Onset Date Comments ORDERS 05/09/2025 Encounter Details Date Type Department Care Team (Late st Contact Info) Description 05/09/2025 Telephone [facility] MEDICINE [address] [place] [address] Ameya Moreno MD [address] [place] [address] ORDERS Social History Tobacco Use [...] concerned because she received a letter from [facility] regarding these overdue/outstanding orders. I assured her there wasn't anything she needed to and that we would get everything taken care of here at the office. Clemencia and I cancelled the outstanding orders and made Dr. Moreno aware. * Telephone Encounter - Gayathri Garcia RegSched Rep - 05/09/2025 9:04 AM EDT Caller: Elise Armando Relationship: Self Best call back number: [phone] What orders are you requesting (i.e. lab or imaging): LABS FROM 03/05/25 In what timeframe would the patient need to come in: ANYTIME Where will you receive your lab/imaging services: [facility] Additional notes: PATIENT IS WANTING THE ORDERS SENT OVER TO [facility] FROM 03/05/25 documented in this encounter Plan of Treatment Not on file documented as of this encounter Visit Diagnoses Not on filedocumented in this encounter Care Teams Electric Motor Assembler Relationship Specialty Start Date End Date Ameya Moreno MD [address] [place] [address] PCP - General Family Medicine 03/01/24 documented as of this encounter
--- OUTSIDE RECORDS SUMMARY | 2025-06-13 10:00 | XMS_ITS | Clinical Summary ---
Author Organization [facility] Address [address] [place] [address] Care Team Providers Care [employer] Science Teacher Name Role Phone Ameya Moreno MD Primary Care Provider + Allergies No known active allergies Medications melatonin 5 MG tablet tablet Take 1 tablet by mouth. Active aspirin 81 MG EC tablet Take 1 tablet by mouth Daily. Active Encounters Date Type Department Care Team Description 05/09/2025 Telephone [facility] MED[facility]INE [address] [place] [address] Ameya Moreno MD ORDERS 04/06/2025 Results Follow-Up [facility] MED[facility]INE [address] [place] [address] Ameya Moreno MD from Last [...] 3) 02/07/2016 12/13/2015 ANNUAL WELLNESS VISIT 01/28/2022 INFLUENZA VACCINE 04/28/2025 07/08/2024, , 07/15/2022, Additional history exists COVID-19 Vaccine (2023-2 5 season) 2025 06/03/2024, 07/08/2023, 06/25/2022, Additional history exists RSV Vaccine - Adults Completed 07/15/2023 Procedures Procedure Name Priority Date/Time Associated Diagnosis Comments SCANNED EKG 06/11/2025 SCANNED EKG 06/11/2025 SCANNED - IMAGING 06/11/2025 SCANNED EKG 06/02/2025 SCANNED - IMAGING 06/02/2025 [...] Last 3 Months Results * ECG Scan (06/11/2025) Only the most recent of7 resultswithin the time period is included. Ameya Moreno MD ECG ORDERABLES Final Re sult * IMAGING SCANNED (06/11/2025) Only the most recent of6 resultswithin the time period is included. Anatomical Region Laterality Modality Radiographic Stacy ging Ameya Moreno MD IMG DIAGNOSTIC IMAGING O RDERABLES Final Result * LABS SCANNED (05/12/2025) Only the most recent of9 resultswithin the time period is included. Ameya Moreno MD LAB BLOOD ORDERABLES Fin al Result from Last 3 Months Insurance [facility] [employer] PPO Care Teams [employer] Science Teacher Relationship Specialty Start Date End Date Ameya Moreno MD [address] [place] [address] PCP - General Family Medicine 03/01/24
--- NOTE | 2025-06-13 13:00 | CT_ITS ---
FINAL REPORT CLINICAL HISTORY: Dizziness FINDINGS: CT NECK ANGIO, WITHOUT AND WITH CONTRAST TECHNIQUE: Thin section axial CT with contrast with multiplanar 3D MIP reconstruction. This study was performed with techniques to keep radiation doses as low as reasonably achievable, (ALARA). Individualized dose reduction techniques using automated exposure control or adjustment of mA and/or kV according to the patient''s size were employed. NASCET criteria and technique was utilized during interpretation. FINDINGS: Contrast-enhancement is suboptimal. Aortic arch: Arch shows no significant narrowing. Great vessel origins are widely patent. Right carotid: No significant stenosis is seen of the cervical common or internal carotid artery. Left carotid: Patent without obvious stenosis. There is streak artifact from opacification of the left internal jugular which obscures a portion of the left carotid. Vertebrals: Left vertebral artery is dominant. No significant stenosis is present. IMPRESSION: No significant stenosis of the cervical carotid arteries This study was performed using automated techniques to achieve radiation exposure as low as reasonably Reviewed, Interpreted and Dictated by Anu Rose MD Transcribed by Teresa Gann Authenticated and [facility]
--- NOTE | 2025-06-13 13:00 | CT_ITS ---
FINAL REPORT CLINICAL HISTORY: Dizziness FINDINGS: CTA HEAD TECHNIQUE: Thin section axial CT with contrast with 3D MIP reconstruction This study was performed with techniques to keep radiation doses as low as reasonably achievable, (ALARA). Individualized dose reduction techniques using automated exposure control or adjustment of mA and/or kV according to the patient''s size were employed. FINDINGS: No aneurysm is seen. Major intracranial vessels are patent without significant stenosis. . IMPRESSION: Unremarkable This study was performed using automated techniques to achieve radiation exposure as low as reasonably achievable Reviewed, Interpreted and Dictated by Anu Rose MD Transcribed by Teresa Gann Authenticated and [facility]
--- NOTE | 2025-06-13 13:00 | CT_ITS ---
FINAL REPORT TECHNIQUE: Postcontrast axial images of the chest were performed in a CTA protocol. This study was performed with techniques to keep radiation doses as low as reasonably achievable, (ALARA). Individualized dose reduction technique using automated exposure control or adjustment of mA and/or kV according to the patient's size were employed. CLINICAL HISTORY: elevated d-dimer FINDINGS: The heart is normal in size. No adenopathy is identified. No pleural or pericardial effusion is identified. The thoracic aorta is ectatic without evidence of dissection. There is no filling defect to suggest pulmonary embolism. There are emphysematous changes. Dependent atelectasis is seen, right greater than left. There is enlargement of the central pulmonary vessels suggestive of pulmonary arterial hypertension. The images of the upper abdomen are unremarkable. IMPRESSION: No evidence for PE on this exam. Enlarged central pulmonary vessels suggestive of pulmonary arterial hypertension. Underlying emphysematous disease. Reviewed, Interpreted and Dictated by Anu Rose MD Transcribed by Teresa Gann Authenticated and [facility]
[2025-06-13] MEDS: 0.9 % SODIUM CHLORIDE 50 ML VIAL 100 ML IV (14:19)
[2025-06-13] MEDS: IOPAMIDOL-370 (76%);100ML BOTTLE 175 ML IV (14:19)
[2025-06-13] MEDS: SODIUM CHLORIDE 0.9% 10ML SYR (RAD ONLY) 10 ML IV (14:20)
== END 2025-06-13 23:59 | disposition home or self-care (01) ==
PROVIDERS: PCP Family Medicine; Visit Provider Nurse Practitioner
DX: I49.1 Atrial premature depolarization (principal); I47.19 Other supraventricular tachycardia; I49.3 Ventricular premature depolarization; I48.0 Paroxysmal atrial fibrillation; I28.1 Aneurysm of pulmonary artery; R79.89 Other specified abnormal findings of blood chemistry
CPT/HCPCS: 70496; 70498; 71275; 93270; Q9967

== ENCOUNTER 2025-06-23 15:00 | Outpatient (RCR) | payer MEDICARE, OTHER, SELFPAY ==
--- NOTE | 2025-06-07 13:58 | HMH.PTOPEV ---
PT Evaluation Rehab PT Outpatient Evaluation Start: 06/07/25 13:45 Freq: Status: Active Protocol: Document 06/07/25 13:45 PHORNE (Rec: 06/07/25 13:58 PHORNE [id number]) E-signed By Quang Perez, PT Outpatient Therapy Subjective History Subjective History This is the initial PT eval for Elise Armando, 84 yowf who presents with c/o increased dizziness and vertigo x ~1 mo, but worse x 2-3 days. She reports background feeling of dizziness with intermittent vertigo lasting less than 60 sec. She has a difficult time describing her exact sensations and reports no specific movement or position that causes her symptoms. She reports hx of recent heart palpitations but otherwise has no significant PMH. Chief Complaint Other Symptoms Relieved By Activity Balance Eval Hx of Falls Hx Falls No Nystagmus Nystagmus Geotropic,Right Torsion Description Oculomotor Gaze Oculomotor Gaze Nml: Vergence Smooth Pursuit Saccades VOR Cancellation Cover/Uncover Cross Cover [place] Feet Together/Eyes fail open/Stable Surface Feet Together/Eyes pass Closed/Stable Surface Feet Together/Eyes fail open/Unstable Surface Feet Together/Eyes fail Closed/Unstable Surface Miscellaneous Dx PT Eval Objective Objective Occulomotor testing: Head Shake Nystagmus, VOR cancellation, Saccades, smooth pursuit, cross-cover test all negative for symptoms reproduction. Enzo-Hallpike: R side enzo-hallpike results in geotropic and R torsional nystagmus last ~20 sec. R side TIMBER MILL WORKER performed with assumed PSC canalithiasis per nystagmus as noted. Outpatient Therapy Assessment Impairments Problems/ Impaired Balance,Impaired Self Care/Self Management Impairmments Prognosis Rehab Potential Good Comment Skilled therapy services are indicated to reduce vertigo symptoms, specifically BPPV, in order to aid improvement in QOL. Clinical Impression Consistent with Yes Diagnosis PT Patient Goals PT Patient Goals PT Short Term In 2 wks pt will: Patient Goals 1) Report minimal instances of vertigo with laying in bed or sit/stand transfers. PT Spare Parts Clerk Patient In 4 wks pt will: Goals 1) Report no instances of vertigo with laying in bed or sit/stand transfers. Outpatient Therapy Plan of Care Treatment Plan May Include Therapeutic Exercise Yes Including Home Exercise Program Manual Therapy Yes Techniques Neuromuscular Re- Yes education Therapeutic Yes Activities to Return to Previous Functional/Work Level ADL/Self Care Yes Education Canalith Yes Repositioning Technique Frequency Times per week 1 Duration Number of Weeks 4 Addendums This patient is a No candidate for social or vocational rehab ? Patient/Guardian Yes verbally acknowledges understanding of treatment program and consents to further treatment? Patient/Guardian Yes verbally acknowledges understanding of diagnosis, prognosis and goals for treatment? Eval Complexity PT Charges 27685 - High Complexity Shoulder/Elbow Eval Shoulder Objective Measurements Elbow Objective Measurements PHYSICIAN CERTIFICATION: I certify the specified therapy services for Elise Armando are required, authorized, and reviewed every 30 days.
== END 2025-06-23 23:59 | disposition home or self-care (01) ==
LOC: PT 15:00
PROVIDERS: Visit Provider Internal Medicine
DX: R42 Dizziness and giddiness (principal)
CPT/HCPCS: 95992; 97163; 97535

== ENCOUNTER 2025-08-02 10:56 | Outpatient (RCR) | payer MEDICARE, OTHER, SELFPAY | END 2025-08-02 23:59 | disposition home or self-care (01) | LOC: PT 10:56 | PROVIDERS: PCP Family Medicine; Visit Provider Internal Medicine | DX: R42 Dizziness and giddiness (principal) | CPT/HCPCS: 95992 ==